=== PATIENT | male | born 1960 | race Caucasian/White ===

== ENCOUNTER 2020-07-19 12:14 | Outpatient (NON) | payer MEDICARE, SELFPAY ==
[2020-07-19 22:30] LABS: SARS-CoV-2 RNA PCR Negative
== END 2020-07-19 12:15 ==
PROVIDERS: Visit Provider Internal Medicine
DX: Z20.828 Contact with and (suspected) exposure to other viral communicable diseases (principal); R05 Cough; R09.89 Other specified symptoms and signs involving the circulatory and respiratory systems
CPT/HCPCS: 87635; C9803; U0003

== ENCOUNTER 2020-07-22 13:25 | Outpatient (CLI) | payer MEDICARE, SELFPAY ==
--- NOTE | ~2020-07-22 | US_ITS ---
US venous doppler LE RT DATE: 07/22/2020 14:21 INDICATION: Right calf redness and swelling. Fever. TECHNIQUE: Real-time imaging, color flow imaging and Doppler analysis COMPARISON: None FINDINGS: The right greater saphenous vein is patent. There is spontaneous and phasic flow and normal augmentation and color flow signal and normal compression of the deep veins of the right lower extre mity. Up to 12 x 15 x 32 mm right groin lymph nodes are noted. IMPRESSION: No evidence of deep venous thrombosis of right lower extremity Nonspecific prominent right inguinal lymph nodes Reviewed, dictated and finalized at [facility]. Reviewed, dictated and finalized at location [facility].
[2020-07-22 14:59] LABS: INR 2.6; Prothrombin Time 27.5 Seconds (11.1-14.7)
== END 2020-07-22 13:26 | disposition home or self-care (01) ==
PROVIDERS: PCP Registered Nurse; Visit Provider Registered Nurse
DX: R22.41 Localized swelling, mass and lump, right lower limb (principal); M79.604 Pain in right leg; Z86.718 Personal history of other venous thrombosis and embolism
CPT/HCPCS: 36415; 85610; 93971

== ENCOUNTER 2023-07-09 04:51 | Inpatient (IN) | payer MEDICARE, SELFPAY ==
[2023-07-09] VITALS (14 sets, daily range): BP systolic 82–156; BP diastolic 54–97; PULSE 84–125; RESP 16–30; TEMP 35–36.3; O2SAT 93–100; BMI 27.5
--- NOTE | ~2023-07-09 | XR_ITS ---
Portable chest x-ray Comparison: None Clinical History: Chest pain, shortness of breath Findings: There is extensive hazy and interstitial pulmonary disease, most compatible with moderate pulmonary edema. No definite pleural effusion. Cardiomediastinal silhouette is stable. Bones and sof t tissues are unremarkable. Impression: Hazy and interstitial pulmonary disease, suggestive of moderate pulmonary edema. Infection or chronic interstitial disease are felt to be less likely. Correlate clinically. Reviewed, dictated and finalized at location . Impression: Hazy and interstitial pulmonary disease, suggestive of moderate pulmonary edema . Infection or chronic interstitial disease are felt to be less likely. Correla te clinically.
--- NOTE | 2023-07-09 05:08 | ECG_ITS ---
Measurements Intervals [place] Rate: 119 P: AL: 0 QRS: 1 QRSD: 118 T: 152 QT: 287 QTc: 405 Interpretive Statements IS A SINUS TACHYCARDIA WITH FIRST-DEGREE AV BLOCK PREVIOUS ANTERIOR SEPTAL SC ST SEGMENT ABNORMALITY CONSISTENT WITH LATERAL ISCHEMIA ABNORMAL ECG NO PREVIOUS ECG AVAILABLE FOR COMPARISON Electronically Signed On 07-09-2023 7:43:34 CDT by Thomas High M.D.
[2023-07-09] MEDS: NITROGLYCERIN OINTMENT 1 INCH DOSE TRANSDERM (05:13)
[2023-07-09] MEDS: MORPHINE SULFATE (*CRX) 4 MG/ML INJ IV PUSH (05:13)
[2023-07-09] MEDS: ONDANSETRON INJ 4 MG/2 ML VIAL IV PUSH (05:14)
--- NOTE | 2023-07-09 05:22 | ECG_ITS ---
Measurements Intervals [place] Rate: 110 P: 92 IA: 212 QRS: 7 QRSD: 110 T: 146 QT: 307 QTc: 417 Interpretive Statements SINUS TACHYCARDIA WITH FIRST DEGREE AV BLOCK WITH FREQUENT VENTRICULAR PREMATURE COMPLEXES ANTEROSEPTAL MYOCARDIAL INFARCTION , OF INDETERMINATE AGE [40+ ms Q WAVE IN V1-V4] MARKED ST DEPRESSION, CONSIDER SUBENDOCARDIAL INJURY [0.2+ mV ST DEPRESSION] ABNORMAL ECG COMPARED TO ECG 07/09/2023 05:22:50 FIRST DEGREE AV BLOCK NOW PRESENT MYOCARDIAL INFARCT FINDING NOW PRESENT Electronically Signed On 07-09-2023 13:59:12 CDT by Frederick Valera M.D.
[2023-07-09 05:26] LABS: Basophils Absolute Auto 0.1 K/mm3 (0.0-0.1); Basophils Percent Auto 0.5 % (0.2-1.2); Eosinophils Absolute Auto 0.3 K/mm3 (0-0.3); Eosinophils Percent Auto 1.5 % (0-4.4); Hematocrit 31.4 % (42.0-52.0); Hemoglobin 10.5 g/dL (14.0-18.0); Immature Granulocyte Absolute 0.22 K/mm3 (0.00-0.031); Immature Granulocyte Percent A 1.1 % (0-0.5); Lymphocytes Absolute Auto 3.91 K/mm3 (0.9-3.2); Lymphocytes Percent Auto 18.9 % (18.3-44.2); Mean Corpuscular HGB Conc 33.4 g/dl (32-36); Mean Corpuscular Hemoglobin 31.7 pg (26-34); Mean Corpuscular Volume 94.9 fl (80-100); Mean Platelet Volume 11.1 fl (7.4-10.4); Monocytes Absolute Auto 1.6 K/mm3 (0.1-0.6); Monocytes Percent Auto 7.5 % (2.6-8.5); Neutrophils Absolute Auto 14.6 K/mm3 (1.3-6.7); Neutrophils Percent Auto 70.5 % (45.5-73.1); Platelet Count Result 321 k/mm3 (150-375); Red Blood Count 3.31 M/mm3 (4.6-6.20); White Blood Count 20.7 K/mm3 (4.5-10.0)
[2023-07-09 05:35] LABS: INR 1.8; Prothrombin Time 22.3 Seconds (11.1-14.7)
[2023-07-09 05:36] LABS: Partial Thromboplastin Time 43.1 SECONDS (22.3-36.8)
[2023-07-09 05:39] LABS: Alanine Aminotransferase 28 U/L (6-50); Albumin Level 3.9 g/dL (3.5-5.1); Alkaline Phosphatase 75 U/L (38-126); Anion Gap 12 mmol/L (8-16); Aspartate Amino Transferase 95 U/L (17-59); Bilirubin,Total 0.4 mg/dL (0.2-1.3); Blood Urea Nitrogen 12 mg/dL (9-20); Calcium 8.3 mg/dL (8.4-10.2); Carbon Dioxide 19 mmol/L (22-30); Chloride 94 mmol/L (98-107); Estimated CRCL calculation 48 ml/min; Estimated Glomerular Filt Rate 44; Glucose 318 mg/dL (65-110); Lipase 65 U/L (23-300); Potassium 3.8 mmol/L (3.4-5.0); Sodium 125 mmol/L (137-145)
[2023-07-09 05:52] LABS: Anisocytosis 2+ (NORMAL); Hypochromasia 2+ (NORMAL); Schistocytes None Seen (NORMAL)
[2023-07-09 05:56] LABS: NT Pro B Type Natriuretic Pept 9100 pg/mL (19.9-100)
--- NOTE | 2023-07-09 06:00 | ECG_ITS ---
Measurements Intervals [place] Rate: 129 P: VA: 0 QRS: 9 QRSD: 110 T: 144 QT: 264 QTc: 387 Interpretive Statements ATRIAL FLUTTER/TACHYCARDIA WITH RAPID VENTRICULAR RESPONSE POSSIBLE ANTERIOR MYOCARDIAL INFARCTION , PROBABLY OLD [30 ms Q WAVE IN V3/V4, OR R < 0.2 mV IN V4] MARKED ST DEPRESSION, CONSIDER SUBENDOCARDIAL INJURY [0.2+ mV ST DEPRESSION] ABNORMAL ECG NO PREVIOUS ECG AVAILABLE FOR COMPARISON Electronically Signed On 07-09-2023 13:58:54 CDT by Frederick Valera M.D.
--- NOTE | 2023-07-09 06:16 | ED.GENADULT ---
HPI - General Adult General Chief complaint: Chest Pain Stated complaint: CHEST PAIN Time Seen by Provider: 07/09/23 05:05 History of Present Illness HPI narrative: Patient 62-year-old gentleman who presents the emergency department with chief complaint of chest pain and shortness of breath. Patient reports that around 230 this morning started to have discomfort in his chest patient also became extremely short of breath and reports that he felt as though his lungs are filling up with fluid. Patient reports feels like tightness and reports that he got diaphoretic patient does report that he has history of cardiac disease and has had a previous catheterization at [facility] Related Data Allergies Allergy/AdvReac Type Severity Reaction Status Date / Time No Known Allergies Allergy Unverified 05/09/18 10:47 Review of Systems Review of Systems: A 10 system review of systems was completed on the patient and is negative except for what is stated in the HPI. Nursing and ancillary documentation was reviewed. [facility] Family History Family History Other Diabetes mellitus Family history of cardiovascular disease Family history of malignant neoplasm Hypertension Social History Social History Smoking status: Current every day smoker Alcohol intake: current Exam Narrative: GENERAL: Well-appearing, well-nourished, and in moderate pain distress. Diaphoretic HEAD: Normocephalic, atraumatic. EYES: PERRLA and EOMI. ENT: Nares clear, no rhinorrhea or epistaxis. Mucous membranes moist. NECK: Supple. CHEST: Expiratory wheezes present and crackles present. Patient in moderate respiratory distress HEART: Regular rate and rhythm. No murmur heard. Normal peripheral pulses. ABDOMEN: Soft, nontender, nondistended, normal active bowel sounds. EXTREMITIES: Normal range of motion. No edema. SKIN: Warm, dry, no rash. NEURO: No focal deficits. Alert and oriented x3. PSYCH: Normal mood and affect. Course Vital Signs Vital signs: Vital Signs Temperature 35 C L 07/09/23 04:53 Pulse Rate 125 H 07/09/23 04:53 Respiratory Rate 30 H 07/09/23 04:53 Blood Pressure 156/80 H 07/09/23 04:53 Pulse Oximetry 93 07/09/23 04:53 Oxygen Delivery Non-Rebreather Mask 07/09/23 04:53 Oxygen Flow Rate 10 07/09/23 04:53 Temperature 35 C L 07/09/23 04:53 Pulse Rate 116 H 07/09/23 05:45 Respiratory Rate 26 H 07/09/23 05:45 Blood Pressure 119/97 H 07/09/23 05:26 Pulse Oximetry 100 07/09/23 05:45 Oxygen Delivery BiPAP 07/09/23 05:45 Oxygen Flow Rate 10 07/09/23 05:08 Medical Decision Making MDM Narrative Medical decision making narrative: Initial EKG showed sinus tachycardia with ST depression no ST elevation present. There was a lot of motion artifact due to the patient's respiratory status The patient was placed on BiPAP due to respiratory distress Patient received aspirin prehospital by EMS Patient's pain was controlled and the patient's breathing status improved on BiPAP. Repeat EKG showed ST depression but no ST elevation. Patient was started on a heparin drip Vital Signs Vital Signs: Vital Signs Temperature 35 C L 07/09/23 04:53 Pulse Rate 125 H 07/09/23 04:53 Respiratory Rate 30 H 07/09/23 04:53 Blood Pressure 156/80 H 07/09/23 04:53 Pulse Oximetry 93 07/09/23 04:53 Oxygen Delivery Non-Rebreather Mask 07/09/23 04:53 Oxygen Flow Rate 10 07/09/23 04:53 Temperature 35 C L 07/09/23 04:53 Pulse Rate 116 H 07/09/23 05:45 Respiratory Rate 26 H 07/09/23 05:45 Blood Pressure 119/97 H 07/09/23 05:26 Pulse Oximetry 100 07/09/23 05:45 Oxygen Delivery BiPAP 07/09/23 05:45 Oxygen Flow Rate 10 07/09/23 05:08 Lab Data 07/09/23 05:12 07/09/23 05:12 Labs: Lab Results 07/09/23 Range/Unit
[2023-07-09] MEDS: HEPARIN SODIUM 5,000 UNITS/ML VIAL 4000 UNITS IV PUSH (06:53)
[2023-07-09] MEDS: HEPARIN SOD/D5W 100 UNITS/ML 25,000 UNITS/250 ML BAG 10 UNITS IV CONT (06:54)
--- NOTE | 2023-07-09 10:11 | PM.CNCAR ---
Assessment and Plan Assessment and plan (1) Acute non-ST elevation myocardial infarction (NSTEMI): Code(s): I21.4 - Non-ST elevation (NSTEMI) myocardial infarction Status: Acute Plan this is a 62-year-old man with a history of coronary and peripheral vascular disease, previous infarction and previous PCI with care Provided elsewhere. He has a history of ongoing cigarette smoking and a history of congenital hypercoagulable disorders described above. He enters the hospital with acute coronary syndrome. The patient should probably undergo follow-up angiography in this setting. I will try to contact his established computer lab assistant this morning to see if he can be transferred to their hospital since he does have complex coronary disease and a history of in a very unusual hypercoagulable disorder and his web systems developer is not available to participate in his care here at [place]. If I am not able to contact his physician we will consider bringing him to the slab worker here at [place] today. Thomas High MD [facility] History of Present Illness History of Present Illness Consult date/time: 07/09/23 10:11 Reason For Visit: NSTEMI Narrative: this is a 62-year-old man with a history of coronary artery disease. He receives his cardiovascular care elsewhere at the time of this initial consultation I did not have any records that pertain to his previous care. He came to [facility] in the middle of the night with some chest pain that occurred was home. He describes a pressure-like retrosternal pain radiating to the left shoulder in the left arm, he recognize these as typical symptoms of myocardial ischemia and was brought to the emergency room. In the emergency department he was treated with nitrates oxygen and aspirin he was also started on intravenous heparin. His symptoms did improve and he was admitted to the IMU. His troponin level has risen to 18.6 indicating obvious evidence of acute myocardial injury. The patient's electrocardiogram shows sinus rhythm with evidence of previous anteroseptal infarction and some lateral ST segment depression compatible with ischemia. There are no previous ECGs in our records for comparison. According to the records that I have available to me now he has a history of coronary disease dating back to the year 1999 which she underwent percutaneous angioplasty and stenting at [facility] in [place]. He recently has been followed by Dr. Anderson of [facility]. He in 2014 presented with the ischemic symptoms and underwent stenting to his circumflex and then of the obtuse marginal in 2019. He also has a rather unusual hypercoagulable disorder managed by a web systems developer he has hereditary methylenetrahydrofolate reductase mutation . for this he is anticoagulated with warfarin. Current INR is 1.8. He also apparently has a history of peripheral vascular disease and has undergone previous percutaneous revascularization. I have none of the details of that available to me at the time of this dictation. The patient is resting IMU room 211 at the time I saw him. He still has some mild chest pressure he does report that the symptoms are much improved from when he presented here couple of hours ago. Most unfortunately he is an ongoing cigarette smoker. According to records from his previous physician he takes aspirin, atorvastatin, folic acid, furosemide, lisinopril, metformin, metoprolol, pantoprazole and warfarin. Review of Systems Constitutional: Constitutional: Reports no additional constitutional complaints Eyes: Eyes: Reports no additional eye complaints ENT: Reports system reviewed and no additional complaints, except as documented Cardiovascular: Cardiovascular: Reports as per HPI Respiratory: Respiratory: Reports no additional respiratory complaints Gastrointestinal: Gastrointestinal: Reports heartburn Genitourinary: Genitourinary: Reports no additional male cristóbal
--- NOTE | 2023-07-09 10:23 | ADMGEN ---
This patient, Natan Mari, was admitted to IMU Room 211-01. Patient/family oriented to hospital policies and general routines including ID bracelet, bed and alarms, visiting hours, pain management, procedures, bathroom and other care routines, personal items, smoking policy, room service/diet, and visiting hours. Information on how to activate the Rapid Response Team has been discussed. Patient/Family are encouraged to report perceived risks to care and to ask questions if they do not understand what they are told or what they should do.
[2023-07-09] MEDS: ASPIRIN 81 MG CHEWABLE TABLET PO (12:32)
[2023-07-09] MEDS: PANTOPRAZOLE 40 MG TABLET PO (12:32)
[2023-07-09 12:45] LABS: Partial Thromboplastin Time 90.2 SECONDS (22.3-36.8)
--- NOTE | 2023-07-09 16:19 | PC.NURSE ---
1549 pt left with [facility]. 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 Nitro paste to patient's right chest. Pt rates chest pain at a 2.
--- NOTE | 2023-08-06 11:50 | PM.TDS ---
Transfer Discharge Sum: Prov Provider Date of admission: 07/09/23 06:13 Primary care physician: Alma Pham, SALES AGENT [employer] REPORT [employer]ICE Admitting clinician: Bailey Li MD Attending physician on admission: Bailey Li Consults: 07/09/23 06:14 Consult to Physician Routine Comment: Consulting Provider: Frederick Valera Reason for consultation: NSTEMI Has provider been notified: Yes Attending physician on discharge: Bailey Li V. Discharging clinician: Thomas High Anticipated date of transfer: 07/09/23 Receiving physician/facility: [facility] DS: Admitting Diagnosis Discharge Date 07/09/[address]-elevation DC DS: Discharge Diagnosis Discharge Diagnosis Plan transfer to referring hospital for higher risk PCI and revascularization Transfer Discharge Sum: Med Medications Active and Home Medications: Home Medications allopurinol 300 mg tablet 300 mg PO DAILY 07/09/23 [History Confirmed 07/09/23] atorvastatin 40 mg tablet 40 mg PO HS 07/09/23 [History Confirmed 07/09/23] folic acid 1 mg tablet 1 mg PO DAILY 07/09/23 [History Confirmed 07/09/23] furosemide 20 mg tablet 20 mg PO DAILY 07/09/23 [History Confirmed 07/09/23] gabapentin 600 mg tablet 600 mg PO DAILY 07/09/23 [History Confirmed 07/09/23] lisinopril 40 mg tablet 40 mg PO DAILY 07/09/23 [History Confirmed 07/09/23] metoprolol succinate 100 mg tablet,extended release 24 hr 100 mg PO HS 07/09/23 [History Confirmed 07/09/23] pantoprazole 40 mg tablet,delayed release 40 mg PO DAILY 07/09/23 [History Confirmed 07/09/23] potassium chloride 10 mEq tablet,extended release 10 meq PO DAILY 07/09/23 [History Confirmed 07/09/23] warfarin 5 mg tablet 5 mg PO DAILY 07/09/23 [History Confirmed 07/09/23] Transfer Discharge Sum: Hosp Hospital Course Hospital course: Natan Mari is a 62 year old male with a long history of coronary artery disease who receives his care by a cardiology group elsewhere and came to this hospital with ischemic chest pain the evening prior to this consultation. He was treated with aspirin beta-blockers nitrates and anticoagulation and rendered pain-free. His troponin levels did rise significantly indicating evidence of non ST elevation DC. His ECG showed some lateral ST segment depression. The patient has a history of coronary disease with previous percutaneous and surgical revascularization. He also has a sore unusual hypercoagulable disorder as well. He receives none of his medical care or cardiology care here at [facility]. His personal care aid is a member of the [facility] group and he receives his care through their services. I have recommended to the patient transferring him to their facility for further evaluation and revascularization in terms of the higher risk of more complex situation that his case presents. He was transferred to [facility] for this reason the day I saw him in consultation. The patient was admitted to the hospitalist service according to the records there is no evidence the aware of they had seen the patient prior to his departure from the hospital Time Spent with Patient Time attestation: Total time spent providing and/or coordinating transfer services: Total time spent: Greater than 30 minutes Exam Const: Other: well-developed well-nourished somewhat chronically ill-appearing gentleman no distress HENMT: Head: normal to inspection Face and sinus: normal facial exam Eyes: Sclera: sclerae normal Pupils: Equal, round and reactive pupils present Neck: Neck: normal visual inspection and no JVD Chest: Chest palpation & inspection: normal inspection of the chest Other: breath sounds are clear bilaterally no wheezing rales or rhonchi Cardio: Jugular venous distension: no JVD Other: first and second heart sounds are normal no gallop very soft systolic murmur does not radiate from the left sternal border
== END 2023-07-09 15:49 | disposition short-term general hospital (02) | DRG 281 ==
LOC: ANHED 06:19 → ANHIMU 07:41
PROVIDERS: Specialist; Admitting Provider Internal Medicine; Emergency Provider Emergency Medicine; PCP Registered Nurse; Visit Provider Internal Medicine
DX: I21.4 Non-ST elevation (NSTEMI) myocardial infarction (principal); D68.69 Other thrombophilia; I25.10 Atherosclerotic heart disease of native coronary artery without angina pectoris; I73.9 Peripheral vascular disease, unspecified; F17.210 Nicotine dependence, cigarettes, uncomplicated; Z95.5 Presence of coronary angioplasty implant and graft
CPT/HCPCS: 36415; 71045; 80053; 83690; 83880; 84484; 85025; 85610; 85730; 93005; 94002; 96374; 96375; 99285; A9270; J1644; J2270; J2405; J7040

== ENCOUNTER 2023-12-20 09:45 | Outpatient (RCR) | payer MEDICARE, SELFPAY | END 2023-12-20 14:33 | disposition home or self-care (01) | LOC: ANHCPREHAB 09:45 | PROVIDERS: PCP Registered Nurse; Visit Provider Internal Medicine Cardiovascular Disease | DX: Z95.1 Presence of aortocoronary bypass graft (principal) | CPT/HCPCS: 93798 ==

== ENCOUNTER 2024-12-19 01:04 | Day surgery (SDC) | payer MEDICARE, SELFPAY ==
[2024-12-12 15:20] VITALS: BMI 30.4
--- NOTE | 2024-12-12 15:35 | SUR.PREOP ---
Patient verbalizes understanding that the last dose of warfarin is to be taken on 12/13/2024 and the Endoscopist will instruct them when to restart after the procedure.
--- OUTSIDE RECORDS SUMMARY | 2024-12-19 01:08 | XMS_ITS | Encounter Summary ---
Author Organization [facility] Care Team Providers Care Assembler Unit Name Role Phone Godfrey Abrams MD Primary Care Provider [phone] Encounter Details Date Type Department Care Team (Latest Contact Info) Description 01/18/2018 Orders Only [facility]INCON[facility] ProviderMaria De Jesus MD [address] [place] [id number] Social History Tobacco Use Types Packs/Day Years Used Date Smoking Tobacco: Never Assessed Sex and Gender Information Value Date Recorded Sex Assigned at Not on file Legal Sex Male 10:16 AM ARCHIVIST POLITICAL HISTORY Gender Identity Not on file Sexual Orientation Not on file documented as of this encounter Plan of Treatment Not on file documented as of this encounter Procedures Procedure Name Priority Date/Time Associated Diagnosis Comments SCAN - LABS 01/25/2018 12:00 AM CDT documented in this encounter Results * SCAN - LABS (01/25/2018 12:00 AM CDT) Narrative 01/25/2018 12:00 AM CDT Ordered by an unspecified provider. Historical Provider Final Res ult documented in this encounter Visit Diagnoses Not on filedocumented in this encounter Care Teams Assembler Unit Relationship Specialty Start Date End Date Godfrey Abrams MD PCP - General Internal Medicine 06/15/18 documented as of this encounter
--- OUTSIDE RECORDS SUMMARY | 2024-12-19 01:08 | XMS_ITS | Encounter Summary ---
Author Organization [facility] Address Counts include 234 beds at the [facility] [place] [address] Care Team Providers Care Dark Room Attendant Name Role Phone Godfrey Abrams MD Primary Care Provider [phone] Encounter Details Date Type Department Care Team (Late st Contact Info) Description 12/06/2024 Lieferheld Message Enc [facility] [address] [place], [facility] Provider warfarin/lovenox instructions Social History Tobacco Use Types Packs/Day Years Used Date Smoking Tobacco: Former Cigarettes Smokeless Tobacco: Former Comments:The provider will p rovide you with information on quiting smoking Alcohol Use Standard Drinks/Week Comments Yes 0 (1 standard drink = 0.6 oz pur e alcohol) 1-2 drink a week OASIS D0700: Social Isolation Answer Da te Recorded Frequency of experiencing loneliness or isolatio n Rarely 08/04/2023 OASIS A1250: Transportation Answer Date Recorded Lack of Transportation (Medical) No 08/04/2023 Lack of Transportation (Non-Medical) No 08/04/2023 Patient Unable or Declines to Respond No 08/04/2023 OASIS B1300: Health Literacy Answer Eros e Recorded Frequency of needing help to read materials from doctor or pharmacy Sometimes 08/04/2023 Humiliation, Afraid, Rape, and Kick questionnair e Answer Date Recorded Within the last year, have y ou been afraid of your partner or ex-partner? No 07/11/2023 Within the last year, have y ou been humiliated or emotionally abused in other ways by your partner or ex-partner? No Within the last year, have y ou been kicked, hit, slapped, or otherwise physically hurt by your partner or ex-partner? No 07/11/2023 Within the last year, have y ou been raped or forced to have any kind of sexual activity by your partner or ex-partner? No 07/11/2023 Social Connection and Isolat ion Panel [NHANES] Answer Date Recorded In a typical week, how many times do you talk on the phone with family, friends, or neighbors? More than three times a week 02/04/2023 How often do you get togethe r with friends or relatives? More than three times a week 02/04/2023 How often do you attend chur or zoroastrianism services? Never 02/04/2023 Do you belong to any clubs o r organizations such as muslim groups, unions, fraternal or athletic groups, or school groups? No 02/04/2023 How often do you attend meet ings of the clubs or organizations you belong to? Never 02/04/2023 Are you , , di vorced, , never , or living with a partner? 02/04/2023 AUDIT-C Answer Date Recorded Q1: How often do you have a drink containing alcohol? 4 or more times a week 02/04/2023 Q2: How many drinks containi ng alcohol do you have on a typical day when you are drinking? 3 or 4 Q3: How often do you have si x or more drinks on one occasion? Monthly 02/04/2023 Overall Financial Resource Strain (CARDIA) Answe r Date Recorded How hard is it for you to pa y for the very basics like food, housing, medical care, and heating? Not hard at all 07/11/2023 PHQ-2 Answer Date Recorded Patient Health Questionnaire-2 Score 0 11/23/2023 [facility] - Occupational Stress Questionnaire Answer Date Recorded Do you feel stress - tense, restless, nervous, or anxious, or unable to sleep at night because your mind is troubled all the time - these days? Not at all 02/04/2023 Exercise Vital Sign Answer Date Recorde d On average, how many days pe r week do you engage in moderate to strenuous exercise (like a brisk walk)? 0 days 02/04/2023 On average, how many minutes do you engage in exercise at this level? 0 min 02/04/2023 Hunger Vital Sign Answer Date Recorded Within the past 12 months, y ou worried that your food would run out before you got the money to buy more. Never true 07/11/20 23 Within the past 12 months, t he food you bought just didn't last and you didn't have money to get more. Never true 07/11/2023 PRAPARE - Transportation Answer Date Re corded In the past 12 months, has l ack of transportation kept you from medical appointments or from getting medications? No 06/27 In the past 12 months, has l ack of transportation kept you from meetings, work, or from getting things needed for daily living? No 07/11/2023 Housing Stability Vital Sign Answer Eros e Recorded In the last 12 months, was t here a time when you were not able to pay the mortgage or rent on time? No 07/11/2023 In the last 12 months, how many places have you lived? 1 07/11/2023 In the last 12 months, was t here a time when you did not have a steady place to sleep or slept in a usp (including now)? No 07/11/2023 Sex and Gender Information Value Date Recorded Sex Assigned at Male 12/13/2018 8:47 AM CDT Legal Sex Male 7:24 PM CDT Gender Identity Male 12/13/2018 8:47 AM CDT Sexual Orientation Straight 12/13/2018 8: 47 AM CDT documented as of this encounter Functional Status * Are you deaf or do you have serious difficulty hearing Answer Date of Assessment Author Status No 07/11/2023 11:14 PM CDT Colten Sepulveda RN Active * Are you blind or do you have serious difficulty seeing, even when wearing glasses? Answer Date of Assessment Author Status No 07/11/2023 11:14 PM CDT Colten Sepulveda, ALEX Active * Do you have serious difficulty walking or climbing stairs? Answer Date of Assessment Author Status No 07/11/2023 11:14 PM CDT Colten Sepulveda, ALEX Active * Do you have difficulty dressing or bathing? Answer Date of Assessment Author Status No 07/11/2023 11:14 PM CDT Colten Sepulveda RN Active * Because of a physical, mental, or emotional condition, do you have difficulty doing errands alone such as visiting a doctor's office or shopping? Answer Date of Assessment Author Status No 07/11/2023 11:14 PM CDT Colten Sepulveda RN Active documented as of this encounter Mental Status * Because of a physical, mental, or emotional condition, do you have serious difficulty concentrating, remembering, or making decisions? Answer Entry Date Author Status No 07/11/2023 11:14 PM CDT Colten Sepulveda RN Active documented in this encounter Plan of Treatment Upcoming Encounters Date Type Department Care Team (Late st Contact Info) Description 03/16/2025 9:00 AM CDT Office Visit [facility] [address] [id number] Jessee Anderson MD 3 [facility] [address] [place] [phone] documented as of this encounter Goals Goal Patient Goal Type Associated Problems Recent Progress Patient-Stated? Author Family - family caregiver with be involved in care transitions and discharge planning Lifestyle No Tea Sepulveda RN documented as of this encounter Visit Diagnoses Not on filedocumented in this encounter Additional Health Concerns Assessment Noted Time PHQ-9 Depression Total Score: 0 03/03/20 21 2:55 PM CDT documented as of this encounter Care Teams Dark Room Attendant Relationship Specialty Start Date End Date Godfrey Abrams MD [address] [place] [address] PCP - General 09/18/14 documented as of this encounter
--- OUTSIDE RECORDS SUMMARY | 2024-12-19 01:08 | XMS_ITS | Clinical Summary ---
Author Organization [facility] Address [address] [place] [address] Phone Care Team Providers Care [employer] Name Role Phone Godfrey Abrams MD Primary Care Provider [phone] Allergies No known active allergies Medications allopurinol (ZYLOPRIM) 300 mg tablet oNCE A DAY 7 Active aspirin 81 mg chewable tablet 1 tablet daily 7 Active folic acid (FOLVITE) 1 mg tablet oNCE DAILY 7 Active furosemide (LASIX) 20 mg tablet Daily [address] (PROTONIX) 40 mg EC tablet oNCE A DAY 7 Active warfarin (COUMADIN) 6 mg tablet Take by mouth daily 7 Active gabapentin (NEURONTIN) 600 mg tablet Take 1 tablet (600 mg total) by mouth daily 8 Active lisinopril (PRINIVIL,ZESTR IL) 5 mg tablet Take 4 tablets (20 mg total) by mouth daily 2 TABLETS DAILY 8 Active metoprolol XL (TOPROL-XL) 100 mg 24 hr tablet 1 tablet (100 mg total) daily Active cholecalciferol (VITAMIN D-3) 5,000 unit capsule 5,000 mg daily Activ e polycarbophil (FIBERCON) 625 mg tablet 1 tablet (625 mg total) 3 (three) times a day Active atorvastatin (LIPITOR) 40 mg tablet 1 tablet (40 mg total) daily Active vitamin B complex capsule Take 1 capsule by mouth daily Active POTASSIUM CHLORIDE ER 10 mEq CR tablet TAKE 1 TABLET ONCE A DAY ORALLY 90 tablet/capsu le 1 0 Active Additional Information Patient not taking.Reported on 08/09/2024 digestive enzymes capsule Take 1 tablet by mouth daily Active blood glucose diagnostic strip FreeStyle Test In Vitro StripTEST BLOOD SUGAR TWICE DAILY for dx: Type 2 Diabetes [id number] Godfrey AbramsMusa 3 Active lancets 30 gauge misc by other route 3 Active metFORMIN (GLUCOPHAGE) 500 mg tablet 1 tablet (500 mg total) 2 (two) times a day with meals 1 Active Entresto 24-26 mg tablet Take 1 tablet by mouth 2 (two) times a day 3 Active amiodarone (PACERONE) 200 mg tablet Take 1 tablet (200 mg total) by mouth daily 3 Active senna-docusate (PERICOLACE) 8.6-50 mg Take 1 tablet by mouth 2 (two) times a day 3 Active temazepam (RESTORIL) 15 mg capsule Take 1 capsule (15 mg total) by mouth nightly as needed 3 Active spironolactone (ALDACTONE) 25 mg tablet 3 Active Active Problems Problem Noted Date Diagnosed Date Esophageal thickening 08/09/2024 Multiple pulmonary nodules 08/09/2024 Obstructive sleep apnea 07/08/2022 Periodic limb movement 07/08/2022 Nocturnal hypoxemia 07/08/2022 Psychophysiological insomnia 07/08/2022 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 CAD (coronary artery disease) 03/23/2016 Overview (02/02/2019): Status post left circumflex artery stent in 1998 and obtuse marginal promus Premier stent on 02/22/2015 with 50% left anterior descending coronary artery stenosis, stable. Atrial flutter 03/23/2016 Overview (02/02/2019): Persistent with rapid ventricular response with successful conversion to sinus rhythm on 11/18/2014 on warfarin anticoagulation. Remains in sinus rhythm, INRs Managed by Dr. Abrams Dyslipidemia 03/23/2016 Overview (02/02/2019): On atorvastatin with lipids at goal Hypertension 03/23/2016 Overview (02/02/2019): Isolated elevated reading, normal blood pressure reading at Dr. Patiño 6 weeks ago and normal blood pressure reading at Dr. Abrams's 4 weeks ago Cigarette nicotine dependence in remission 03/23 Overview (02/02/2019): 5 cigarettes per day. Failed Chantix (bad dreams). Nicotine patches were not effective and caused headache. Encounters Date Type Department Care Team Description 11/30/2024 Telephone [facility] [facility] [address] [place] [address] Saida Sharma CMA from Last 3 Months Immunizations Immunization Administration Dates Next Due Influenza, Quadrivalent, Spl it, Preservative Free, Intramuscular 07/26/2023 Moderna SARS-CoV-2 Monovalent Vaccination (12+ Y RS) 03/08/2021,02/08/2021 Tdap 02/04/2023 Surgical History Surgery Date Site/Laterality Comments CORONARY ARTERY BYPASS GRAFT 07/12/2023 Medical History Medical History Date Comments Diabetes mellitus (HCC) Family History Medical History Relation Name Comments No Known Problems Brother No Known Problems Father No Known Problems Mother No Known Problems Sister Relation Name Status Comments Brother Alive Father Mother Sister Alive Social History Tobacco Use Types Packs/Day Years Used Date Smoking Tobacco: Former Cigarettes 1 40 1 - 07/09/2023 Smokeless Tobacco: Never Tobacco Cessation:Counseling Given: Not Answered Alcohol Use Standard Drinks/Week Comments Yes 0 (1 standard drink = 0.6 oz pur e alcohol) AUDIT-C Answer Date Recorded Q1: How often do you have a drink containing alcohol? 4 or more times a week 08/04/2024 Q2: How many drinks containi ng alcohol do you have on a typical day when you are drinking? 1 or 2 Q3: How often do you have si x or more drinks on one occasion? Less than monthly 08/04/2024 Sex and Gender Information Value Date Recorded Sex Assigned at Not on file Legal Sex Male 10:16 AM PLUNKET NURSE Gender Identity Not on file Sexual Orientation Not on file Obstetrics History Last Filed Vital Signs Vital Sign Reading Time Taken Comments Blood Pressure 118/64 08/09/2024 8:55 AM PLUNKET NURSE Pulse 73 08/09/2024 8:55 AM PLUNKET NURSE Temperature 36.4 C (97.6 F) 08/09/2024 8:55 AM PLUNKET NURSE Respiratory Rate 18 08/09/2024 8:55 AM PLUNKET NURSE Oxygen Saturation 98% 08/09/2024 8:55 AM PLUNKET NURSE Inhaled Oxygen Concentration - - Weight 110.2 kg (243 lb) 08/09/2024 8:55 AM PLUNKET NURSE Height 185.4 cm (6' 1 ) 08/09/2024 8:55 AM PLUNKET NURSE Body Mass Index 32.06 08/09/2024 8:55 AM PLUNKET NURSE Plan of Treatment Health Maintenance Due Date Last Done Comments Colon Cancer Screening-Colonoscopy 1958 Depression Screening 1958 Fall Risk Assessment 1960 Hepatitis C Screening 1960 Prostate Cancer Screening-PSA 1958 Hepatitis B Screening 1976 Pneumococcal vaccine 65+ (1 of 1 - PCV) 2008 Zoster Vaccine (1 of 2) 2008 Abdominal Aortic Aneurysm (AAA) Screen 2023 Well Visit 65+ 2023 Covid-19 Vaccine ( season) 05/28/202408/2021, 02/08/2021 Influenza Vaccine (#1) 2024 07/26/2023 Lung Cancer Screening 01/13/2025 07/17/2024 DTaP/Tdap/Td Vaccine (2 - Td or Tdap) 02/04/203307/2023 Procedures Procedure Name Priority Date/Time Associated Diagnosis Comments CT LUNG CANCER SCREENING Schedule Routine, Read Routine (OP Routine) 07/17/2024 12:14 PM CDT Personal history of nicotine dependence from Last 3 Months or Most Recently Relevant to Health Maintenance Results * CT Lung Cancer Screening (07/17/2024 12:14 PM CDT) Anatomical Region Laterality Modality Chest N/A Computed Tomogra phy 07/20/2024 5:47 AM CDT Narrative 07/20/2024 5:57 AM CDT EXAM DESCRIPTION: CT LUNG CANCER SCREENING REASON FOR STUDY: Screening CT of the chest in a former smoker with a 45 pack year smoking history. Additional history: Smoking cessation 10 days ago. TECHNIQUE: Low dose CT scan of the chest was performed without intravenous contrast using helical scanning technique. The exam extends from the lung apices through the lung bases. Automatic exposure control was used as a dose optimization technique. NOTE: This study was performed for the specific purposes of lung cancer screening and is not an alternative to diagnostic chest CT. RADIATION DOSE: CT dose index volume (CTDIvol) = 2.86 mGy COMPARISON: None FINDINGS: SMOKING RELATED LUNG DISEASE: Moderate emphysema, both centrilobular and paraseptal. There is mild pleuroparenchymal scarring in the apices. There is central bronchial wall thickening, as can be seen with bronchitis. LUNG NODULES: Ground-glass nodule anterior right upper lobe, image 138 measuring 1.4 cm. 6 mm nodule posterior right upper lobe, image 183. Linear 4 mm nodule posterior right upper lobe image 184. 2 mm nodule anterolateral left upper lobe image 97. 2 mm nodule left upper lobe image 119. 7 mm nodule lateral left lower lobe image 282. 3 mm juxta fissural nodule anterior left lower lobe image 306. CORONARY ARTERY CALCIFICATION: Present. Changes of CABG OTHER: No pneumonic consolidation within either lung. No effusion or pneumothorax. The central airways are patent. There are areas of subsegmental scarring and atelectasis. The thyroid gland is unremarkable. There is no mediastinal or hilar lymphadenopathy. Mild thickening of the esophagus which is somewhat patulous in appearance. Consider reflux or esophagitis. The heart is normal in size without pericardial effusion. Thoracic aorta is atherosclerotic, without aneurysm. Main pulmonary trunk normal in caliber. No axillary lymphadenopathy. Gynecomastia is noted. Visualized upper abdomen reveals atherosclerotic changes of the aorta. There is cervical and thoracic spondylosis. No acute abnormality IMPRESSION: Moderate emphysema. Central bronchial wall thickening as can be seen with bronchitis. Bilateral pulmonary nodules, the largest a 7 mm nodule in the left lower lobe. Six-month follow-up LD CT recommended. Coronary artery calcifications and changes of CABG. Mild thickening of the esophagus as could be seen with reflux or esophagitis. Correlate clinically. Upper GI or endoscopy can be utilized for further evaluation. Additional findings as above. Lung-RADS category 3S: Probably benign. Finding other than a pulmonary nodule which is potentially clinically significant. Recommendation: Low dose CT of chest in 6 months. THIS IS AN ELECTRONICALLY VERIFIED FINAL REPORT 07/20/2024 5:57 AM - Electronically signed by Tiny Dejesus M.D. TW: TAVARES Report ID: [id number] Reading Location: [id number] Procedure Note Tiny Dejesus MD - 07/20/2024 EXAM DESCRIPTION: CT LUNG CANCER SCREENING REASON FOR STUDY: Screening CT of the chest in a former smoker with a45 pack year smoking history. Additional history: Smoking cessation 10 daysago. TECHNIQUE: Low dose CT scan of the chest was performed without intravenous contrast using helical scanning technique. The exam extends from the lung apices through the lung bases. Automatic exposure control was used as adose optimization technique. NOTE: This study was performed for the specific purposes of lung cancer screening and is not an alternative to diagnostic chest CT. RADIATION DOSE: CT dose index volume (CTDIvol) = 2.86 mGy COMPARISON: None FINDINGS: SMOKING RELATED LUNG DISEASE: Moderate emphysema, both centrilobular and paraseptal. There is mild pleuroparenchymal scarring inthe apices. There is central bronchial wall thickening, as can be seen with bronchitis. LUNG NODULES: Ground-glass nodule anterior right upper lobe, image 138 measuring 1.4cm. 6 mm nodule posterior right upper lobe, image 183. Linear 4 mm nodule posterior right upper lobe image 184. 2 mm nodule anterolateral leftupper lobe image 97. 2 mm nodule left upper lobe image 119. 7 mm nodule lateral left lower lobe image 282. 3 mm juxta fissural nodule anterior left lower lobe image 306. CORONARY ARTERY CALCIFICATION: Present. Changes of CABG OTHER: No pneumonic consolidation within either lung. No effusion or pneumothorax. The central airways are patent. There are areas of subsegmental scarring and atelectasis. The thyroid gland is unremarkable. There is no mediastinal or hilar lymphadenopathy. Mild thickening of the esophagus which is somewhat patulous in appearance. Consider reflux or esophagitis. The heart is normal in size without pericardial effusion. Thoracic aorta is atherosclerotic, without aneurysm. Main pulmonary trunk normal in caliber. No axillary lymphadenopathy. Gynecomastia is noted. Visualized upper abdomen reveals atherosclerotic changes of the aorta.There is cervical and thoracic spondylosis. No acute abnormality IMPRESSION: Moderate emphysema. Central bronchial wall thickening as can be seen with bronchitis. Bilateral pulmonary nodules, the largest a 7 mm nodule in the left lower lobe. Six-month follow-up LD CT recommended. Coronary artery calcifications and changes of CABG. Mild thickening of the esophagus as could be seen with reflux oresophagitis. Correlate clinically. Upper GI or endoscopy can be utilized for further evaluation. Additional findings as above. Lung-RADS category 3S: Probably benign. Finding other than a pulmonarynodule which is potentially clinically significant. Recommendation: Low dose CT of chest in 6 months. THIS IS AN ELECTRONICALLY VERIFIED FINAL REPORT 07/20/2024 5:57 AM - Electronically signed by Tiny Dejesus M.D. TW: TAVARES Report ID: [id number] Reading Location: [place] [address] Jose Francisco Mercer MD IMG CT PROCEDURES Final Res ult from Last 3 Months or Most Recently Relevant to Health Maintenance Insurance [facility] MEDICARE ADVANTAGE [facility] MEDICARE Address: [address] [place] [phone] [facility] MEDICARE AD[facility]ANTAGE [facility] MEDICARE Address: [address] [place] [phone] [facility] MEDICARE Address: [address] [phone] Advance Directives For more information, please contact: [phone] Documents on File Type Date Recorded Patient Atmospheric Sciences Professor Expl anation ADVANCE DIRECTIVE 11/27/2014 12:00 AM POWER OF OCC THERAPIST FINANCIAL/MEDICAL Care Teams [employer] Relationship Specialty Start Date End Date Godfrey Abrams MD PCP - General Internal Medicine 06/15/18
--- OUTSIDE RECORDS SUMMARY | 2024-12-19 01:08 | XMS_ITS | Encounter Summary ---
Author Organization [facility] Address [address] [place] [address] Care Team Providers Care Anatomy And Physiology Instructor Name Role Phone Godfrey Abrams MD Primary Care Provider Encounter Details Date Type Department Care Team (Late st Contact Info) Description 01/23/2015 Orders Only [facility] Health Information Management [address] [place] [address] Scanning, Provider Social History Tobacco Use Types Packs/Day Years Used Date Smoking Tobacco: Never Assessed Sex and Gender Information Value Date Recorded Sex Assigned at Not on file Legal Sex Male 10:16 AM PRODUCT TEST SPECIALIST Gender Identity Not on file Sexual Orientation Not on file documented as of this encounter Plan of Treatment Not on file documented as of this encounter Procedures Procedure Name Priority Date/Time Associated Diagnosis Comments CARDIOLOGY DOCUMENT SCAN 01/23/2015 documented in this encounter Results * SCAN - CARDIOLOGY (01/23/2015) Anatomical Region Laterality Modality Other us Provider Scanning CV CARDIAC SERVICES PROCEDURES Final Result documented in this encounter Visit Diagnoses Not on filedocumented in this encounter Care Teams Anatomy And Physiology Instructor Relationship Specialty Start Date End Date Godfrey Abrams MD PCP - General Internal Medicine 06/15/18 documented as of this encounter
--- OUTSIDE RECORDS SUMMARY | 2024-12-19 01:08 | XMS_ITS | Referral Summary ---
Author Organization [facility] Address [address] [place] [address] Phone Care Team Providers Care Photonics Technician Name Role Phone Godfrey Abrams MD Primary Care Provider [phone] Encounters Date Type Department Care Team Description 11/30/2024 Telephone [facility] [address] [facility] [address] [place] [address] Saida Sharma CMA from Last 3 Months Allergies No known active allergies Medications allopurinol [...] TWICE DAILY for dx: Type 2 Diabetes [id number] Godfrey AbramsActive 3 Active lancets 30 gauge misc by [...] patches were not effective and caused headache. 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 Gender Identity Not on file Sexual Orientation Not on file Last Filed Vital Signs Vital Sign Reading Time Taken Comments Blood Pressure 118/64 08/09/2024 8:55 AM SENIOR TECHNOLOGIST Pulse 73 08/09/2024 8:55 AM SENIOR TECHNOLOGIST Temperature 36.4 C (97.6 F) 08/09/2024 8:55 AM SENIOR TECHNOLOGIST Respiratory Rate 18 08/09/2024 8:55 AM SENIOR TECHNOLOGIST Oxygen Saturation 98% 08/09/2024 8:55 AM SENIOR TECHNOLOGIST Inhaled Oxygen Concentration - - Weight 110.2 kg (243 lb) 08/09/2024 8:55 AM SENIOR TECHNOLOGIST Height 185.4 cm (6' 1 ) 08/09/2024 8:55 AM SENIOR TECHNOLOGIST Body Mass Index 32.06 08/09/2024 8:55 AM SENIOR TECHNOLOGIST Plan of Treatment Not on file Procedures Procedure Name Priority Date/Time Associated Diagnosis [...] Tiny Dejesus M.D. TW: TAVARES Report ID: [id number] Reading Location: [id number] Procedure Note Tiny Dejesus MD - 07/20/2024 [...] Tiny Dejesus M.D. TW: TAVARES Report ID: [id number] Reading Location: [place] [address] Jose Francisco Mercer MD IMG CT PROCEDURES Final Res ult from Last 3 Months or Most Recently Relevant to Health Maintenance Insurance [facility] Address: [place] [address] [facility] Address: [place] [phone] Advance Directives For more information, please contact: [phone] Documents on File Type Date Recorded Patient Resource Protection Specialist Expl anation ADVANCE DIRECTIVE 11/27/2014 12:00 AM POWER OF TELEGRAPH SERVICE RATER FINANCIAL/MEDICAL Care Teams Photonics Technician Relationship Specialty Start Date End Date Godfrey Abrams MD PCP - General Internal Medicine 06/15/18
--- OUTSIDE RECORDS SUMMARY | 2024-12-19 01:08 | XMS_ITS | Clinical Summary ---
Author Organization [facility] Address [address] [place] [address] Care Team Providers Care Verifying Machine Operator Name Role Phone Godfrey Abrams MD Primary Care Provider [phone] Allergies No known active allergies Medications cholecalciferol 125 MCG (5000 UT) TabIndications: Vitamin D Deficiency Take 1 tablet (125 mcg total) by mouth daily. Indications: Vitamin D Deficiency 06/15/20 17 Active B Kcgfyrc-X-Uthde Acid (SM B SUPER VITAMIN COMPLEX OR)Indications: Nutritional Support Take 1 tablet by mouth daily. Indications: Nutritional Support Active allopurinol (ZYLOPRIM) 300 MG tabletIndicatio ns:Gout Prophylaxis TAKE 1 TABLET (300 MG TOTAL) BY MOUTH DAILY. 90 tablet 07/28/20 23 Active polycarbophil (FIBER) 625 MG tablet 1 tablet (625 mg total) 3 (three) times daily. Active warfarin (COUMADIN) 1 MG tabletIndicatio ns:Acute embolism and thrombosis of deep vein of lower extremity, unspecified laterality ([facility] HHS/HCC) TAKE 1& 1/2 TABLETS (1.5MG) BY MOUTH ONCE DAILY DIRECTED 45 tablet 01/03/20 24 Active aspirin EC (ECOTRIN) 81 MG tablet Take 1 tablet (81 mg total) by mouth daily. 90 tablet 3 03/24/20 24 2024 Active Continuous Glucose Sensor (FREESTYLE ALYSSA 3 SENSOR) MiscIndications :Type 2 diabetes mellitus with diabetic peripheral angiopathy without gangrene, without long-term current use of insulin ([facility] HHS/HCC) PLACE ONTO SKIN EVERY 14 DAYS 6 each 03/27/20 24 Active enoxaparin (LOVENOX) 100 mg/mL syringe Inject 1mL(100 mg) subcutaneous at 7 am and 7 pm on 06/17/24, 06/18/34. Inject 1 mL(100mg) 7 am only on 06/19/24, no evening dose. No lovenox on 06/20/24. Restart dose at 7 am and 7 pm 06/21/24 and 06/22/24. 5 mL 05/15/20 24 Active pantoprazole EC (PROTONIX) 40 MG tabletIndicatio ns:Gastroesopha geal reflux disease without esophagitis take one tablet by mouth daily 90 tablet 1 06/23/20 24 Active folic acid (FOLVITE) 1 MG tabletIndicatio ns:Nutritional Support take 1 tablet by mouth daily. 90 tablet 1 06/23/20 24 Active gabapentin (NEURONTIN) 600 MG tabletIndicatio ns:Polyneuropat hy associated with underlying disease (HHS/HCC) TAKE ONE TABLET BY MOUTH EVERY DAY WITH LUNCH DIRECTED 90 tablet 1 06/23/20 24 Active metoprolol succinate ER (TOPROL-XL) 50 MG 24 hr tabletIndicatio ns:NSTEMI (non-ST elevated myocardial infarction) (CMS/HCC HHS/HCC),Atrial flutter, unspecified type (CMS/HCC HHS/HCC) TAKE 1& 1/2 TABLETS (75MG) BY MOUTH ONCE DAILY WITH FOOD DIRECTED 135 tablet 10/03/19 25 Active warfarin (COUMADIN) 5 MG tabletIndicatio ns:Acute embolism and thrombosis of deep vein of lower extremity, unspecified laterality (CMS/HCC HHS/HCC) TAKE 1 TABLET (5 MG TOTAL) BY MOUTH DAILY. 90 tablet 10/06/19 25 Active atorvastatin (LIPITOR) 40 MG tabletIndicatio ns:Hyperlipidem ia TAKE ONE TABLET BY MOUTH EVERY DAY 90 tablet 10/23/19 25 Active ENTRESTO 24-26 MG tablet TAKE ONE TABLET BY MOUTH TWICE A DAY 180 tablet 1 10/23/19 25 Active spironolactone (ALDACTONE) 25 MG tabletIndicatio ns:Benign essential hypertension TAKE ONE TABLET BY MOUTH DAILY 30 tablet 11/29/19 25 Active enoxaparin (LOVENOX) 100 mg/mL syringe Inject 1ml (100mg) subcutaneous at 8am and 8pm on 12/16/24,12/17/24 ,and 8am only on 12/18/24.No evening dose on 12/18/24,no dose on 12/19/24,restart dose at 8am and 8pm on 12/20/24 and 12/21/24. 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 ([facility]) 07/27/2023 History of arterial embolism 03/12/2023 Psychophysiological insomnia 07/08/2022 Periodic limb movement 07/08/2022 Nocturnal hypoxemia 07/08/2022 Nonrheumatic aortic valve stenosis 02/27/2022 Coronary stent patent 12/26/2021 Syncope 12/25/2021 Methylenetetrahydrofolate reductase deficiency ( [facility]) 06/22/2018 Hematuria, unspecified type 01/06/2017 Acquired hypercoagulable state ([facility]) 016 Anemia 05/06/2016 Cardiomyopathy ([facility]) 03/25/2016 Overview (03/27/2020): Overview: Tachycardia induced now resolved with getting him out of atrial flutter in sinus rhythm with an ejection fraction of 55-60%. Coronary artery disease of n ative artery of [place] heart with stable angina pectoris 03/23/2016 Overview (03/27/2020): Overview: Status post left circumflex artery stent in 1998 and obtuse marginal promus Premier stent on 02/22/2015 with 50% left anterior descending coronary artery stenosis, stable. Nicotine dependence 03/23/2016 Overview (11/19/2022): 5 cigarettes per day. Failed Chantix (bad dreams). Nicotine patches were not effective and caused headache. Vitamin D deficiency 05/08/2015 Atrial flutter ([facility]) 11/22/2014 Overview (03/27/2020): Overview: Persistent with rapid ventricular response with successful conversion to sinus rhythm on 11/18/2014 on warfarin anticoagulation. Remains in sinus rhythm, INRs Managed by Dr. Abrams Peripheral neuropathy 07/24/2014 Obstructive sleep apnea 08/18/2013 Diabetes mellitus ([facility]) 11/22/2012 Acute embolism and thrombosi s of unspecified deep veins of unspecified lower extremity ([facility]) 05/23/2012 Benign essential hypertension 05/23/2012 Esophageal reflux 05/23/2012 Gout 05/23/2012 Hyperlipidemia 05/23/2012 Peripheral vascular disease 05/23/2012 Resolved Problems Problem Noted Date Diagnosed Date Resolved Date NSTEMI (non-ST elevated myoc ardial infarction) ([facility]) 07/09/2023 02/22/2024 CAD (coronary artery disease) 07/09/2023 02/22/2024 Cellulitis 02/04/2023 05/11/2023 Encounters Date Type Department Care Team Description 12/15/2024 Anti-Coag Telephone Call [facility] on [address] [id number] Miriam Grey RN Anticoagulation (INR) 12/15/2024 Orders Only [facility] MAIN BUSINESS OFFICE [address] [place] [address] Neno Chavez MD 12/06/2024 Ideaboveallie Message Enc [facility] on [address] [phone] [facility]lovenox [facility] 12/06/2024 Anti-Coag Telephone Call [facility] on [address] [address] Hali Stephens, RN Anticoagulation (Warfarin/Lovenox instructions) 12/01/2024 Anti-Coag Telephone Call [facility], [place] [address] Hali Stephens RN Anticoagulation (protime) 11/30/2024 Telephone [facility], [place] [address] Jessee Anderson MD Surgical Clearance 11/20/2024 Anti-Coag Telephone Call [facility] on [address] [facility], [place] [address] Miriam Grey RN Anticoagulation (INR) 11/03/2024 Anti-Coag Telephone Call [facility] on [address] [facility], [place] [address] Miriam Grey RN Anticoagulation (INR) 11/03/2024 Orders Only [facility] MA[facility] BUSINESS OFF[facility] [address] [place] [address] Neno Chavez MD 10/20/2024 Scan Jellyvision INFO SRVCS Scanned, [facility] 10/20/2024 Anti-Coag Telephone Call [facility] on [address] [facility], [place] [address] Hali Stephens RN Anticoagulation (protime) 10/06/2024 Anti-Coag Telephone Call [facility] on [facility], [address] [address] Miriam Grey RN Anticoagulation (INR) 09/22/2024 Orders Only [facility] MAIN BUSINESS OFFICE [address] [place] [address] Neno Chavez MD 09/22/2024 Anti-Coag Telephone Call [facility] on [facility], [address] [place] [address] Miriam Grey, RN Anticoagulation (INR) from Last 3 Months Immunizations Name Administration Dates Next Due FLUAD (IIV, Trivalent, 0.5 M L Pre-filled Syringe) 08/15/2024 Fluzone 6 Months+ Quad (0.5 mL Prefilled Syringe) 07/26/2023,09/30/2021,06/27/2019 Influenza (Generic) 09/27/2017 MODERNA COVID-19 (12+) MRNA, LNP-S, PF, 100 MCG/ 0.5 ML DOSE 03/08/2021,02/08/2021 Shingrix 11/23/2023,09/14/2023 Tdap (Boostrix) 02/04/2023 Family History Medical History Relation Comments Prostate Cancer Brother 1 Cancer Father lung Cancer Mother Colon Relation Status Comments Brother 1 Alive Brother 2 Alive Father (Age 74) Mother (Age 74) Sister Alive Social History Tobacco Use Types Packs/Day Years Used Date Smoking Tobacco: Former Cigarettes Smokeless Tobacco: Former Tobacco Cessation:Counseling Given: Not Answered Comments:The provider will provide you with information on quiting smoking Alcohol [...] How often do you attend chur or protestant services? Never 02/04/2023 Do you belong to any clubs o r organizations such as taoism groups, unions, fraternal or athletic groups, or [...] Recorded Patient Health Questionnaire-2 Score 0 11/23/2023 [facility] - Occupational Stress Questionnaire Answer Date [...] place to sleep or slept in a fci (including now)? No 07/11/2023 Sex and Gender Information Value Date Recorded Sex Assigned at Male 12/13/2018 8:47 AM CDT Legal Sex Male 7:24 PM CDT Gender Identity Male 12/13/2018 8:47 AM CDT Sexual Orientation Straight 12/13/2018 8: 47 AM CDT Last Filed Vital Signs Vital Sign Reading Time Taken Comments Blood Pressure 116/68 09/15/2024 8:57 AM ASSOCIATE WEB DEVELOPER Pulse 63 09/15/2024 8:57 AM ASSOCIATE WEB DEVELOPER Temperature 36.8 C (98.2 F) 11/23/2023 10:08 AM ASSOCIATE WEB DEVELOPER Respiratory Rate 16 02/22/2024 9:49 AM CDT Oxygen Saturation 98% 09/15/2024 8:57 AM ASSOCIATE WEB DEVELOPER Inhaled Oxygen Concentration - - Weight 111.5 kg (245 lb 14.4 oz) 09/15/2024 8:57 AM ASSOCIATE WEB DEVELOPER Height 185.4 cm (6' 1 ) 09/15/2024 8:57 AM ASSOCIATE WEB DEVELOPER Body Mass Index 32.44 09/15/2024 8:57 AM ASSOCIATE WEB DEVELOPER Plan of Treatment Upcoming Encounters Date Type Department Care Team (Late st Contact Info) Description 03/16/2025 9:00 AM CDT Office Visit [facility]-[address] [address] Jessee Anderson MD [address] [facility] [address] [place] [address] Health Maintenance Due Date Last Done Comments Kidney Health Evaluation 1960 Pneumococcal Vaccine: 65+ Years (1 of 2 - PCV) 1964 Hepatitis C 1976 RSV Immunization or 60+ Years (1 - Risk 60-74 years 1-dose series) 2018 Annual Medicare Wellness Visit 2023 ASCVD LDL 07/11/2024 07/11/2023, 06/27, 07/10/2023, Additional history exists Lipid Panel 07/11/2024 07/11/2023, 06/27, 07/10/2023, Additional history exists Hemoglobin A1C 08/24/2024 02/22/2024, 10/29, 07/11/2023, Additional history exists PHQ-2 (Physician [place]) 09/27/2024 11/23/2023 COVID-19 Vaccine ( season) 2025 08/15/2024, 03/08/2021, 02/08/2021 Colorectal Cancer Screening Colonoscopy (10 Years) 09/05/2025 09/05/2015 Diabetes: Retinopathy Eye Exam 10/19/2025 10/19/2023, 10/09/2019 DTaP, Tdap and Td Vaccines (2 - Td or Tdap) 02/04/2033 02/04/2023 AAA SCREENING Completed 07/10/2023 Zoster Vaccines Completed 11/23/2023, 09/14/2023 Influenza Adult Completed 08/15/2024, 06/29, 09/30/2021, Additional history exists Meningococcal B Vaccine Aged Out No l onger eligible based on patient's age to complete this topic Meningococcal Vaccine Aged Out No carlo lana eligible based on patient's age to complete this topic RSV Immunizations Under 20 Months Aged Out No longer eligible based on patient's age to complete this topic Goals Goal Patient Goal Type Associated Problems Recent Progress Patient-Stated? Author Family - family caregiver with be involved in care transitions and discharge planning Lifestyle No Tea Sepulveda, RN Medical Devices Implanted Type Area Blue Line Trimmer Device Identifier Shelf Expiration Date Model / Serial / Lot Wire Sterum Suture Kit [employer] #7 / Ccs-1 - [id number] Implanted:Qty: 1 on 07/12/2023 by Sarthak Zhao RNFA at [facility] Wire N/A: Sternum [employer] 04/27/2027 [id number] / / [id number] Description:2 Wires implante d Wire Sternotomy Suture Kit - [id number] Implanted:Qty: 1 on 07/12/2023 by Sarthak Zhao RNFA at [facility] N/A: Sternum [employer] 10/28/2027 [id number] / / [id number] Description:5 wires implante d Procedures Procedure Name Priority Date/Time Associated Diagnosis Comments MD REVIEW,HOME INR TEST Routine 12/15/2024 4:44 PM CDT MD REVIEW,HOME INR TEST Routine 12/01/2024 5:41 PM ASSOCIATE WEB DEVELOPER MD REVIEW,HOME INR TEST Routine 11/20/2024 7:36 PM ASSOCIATE WEB DEVELOPER MD REVIEW,HOME INR TEST Routine 11/03/2024 1:40 PM ASSOCIATE WEB DEVELOPER MD REVIEW,HOME INR TEST Routine 10/20/2024 3:58 PM ASSOCIATE WEB DEVELOPER MD REVIEW,HOME INR TEST Routine 10/06/2024 5:28 PM ASSOCIATE WEB DEVELOPER MD REVIEW,HOME INR TEST Routine 09/22/2024 3:53 PM ASSOCIATE WEB DEVELOPER PT/INR (OUTSIDE LAB) Routine 09/22/2024 HEMOGLOBIN, GLYCOSYLATED Routine 02/22/2024 Type 2 diabetes mellitus with diabetic peripheral angiopathy without gangrene, without long-term current use of insulin DIABETIC RETINOPATHY EXAM (NEGATIVE)(SCAN ORDER) Routine 10/19/2023 LIPID PANEL Routine 07/11/2023 4:[address] CHEST WO CON STAT 07/10/2023 2:04 AM CDT COLONOSCOPY GENERIC (SCAN ORDER) Routine 09/05/2015 from Last 3 Months or Most Recently Relevant to Health Maintenance Results * MD REVIEW,HOME INR TEST (12/15/2024 4:44 PM CDT) Only the most recent of7 resultswithin the time period is included. INR WHOLE BLOOD 2.2 2.000 - 3.000 [employer] MONITORING DEVICE 12/15/2024 4:44 PM CDT Neno Chavez MD LABORATORY Final Resul t [employer] MONITORING DEVICE * PT/INR (OUTSIDE LAB) (09/22/2024) INR WHOLE BLOOD 2.40 09/22/2024 us Default History Genericprovider LAB-OUTSIDE/ABST RACTED Final Result * A1C (BACK OFFICE) (02/22/2024) HGB A1C 5.9 % [facility] 02/22/2024 Godfrey Abrams MD LABORATORY Final Result [facility] [address] [place] [address], [place] * DIABETIC RETINOPATHY EXAM (NEGATIVE) (10/19/2023) us [facility] Scanned SCANNING Final Resu lt [facility] ON[facility] * LIPID PANEL (07/11/2023 4:56 AM CDT) CHOLESTEROL 86 <200 MG/DL 07/11/2023 6:51 AM CDT [facility] TRIGLYCERIDES 92 <150 MG/DL 07/11/2023 6:51 AM CDT [facility] HDL 43 >40.0 MG/DL 07/11/2023 6:51 AM CDT [facility] LDL (CALCULATED) 25 <100 MG/DL 07/11/20 6:51 AM CDT [facility] NON HDL CHOLESTEROL 43 <130 MG/DL 07/11 6:51 AM CDT [facility] CHOL/HDL RATIO 2.0 0.0 - 4.5 07/11/2023 6:51 AM CDT [facility] VLDL CALCULATION 18 5 - 55 MG/DL 07/11/2023 6:51 AM CDT [facility] LIPID INTERPRETATION 07/11/2023 6:51 AM CDT [facility] Comment: [facility] CONCENSUS REPORT RECOMMENDATIONS: ADULT CHILD LOW RISK: CHOLESTEROL <200 <170 TRIGLYCERIDE <150 --- HDL >=60 --- LDL <100 <110 BORDERLINE: CHOLESTEROL 200-239 170-199 TRIGLYCERIDE 150-199 --- HDL 40-59 --- LDL 100-159 110-129 HIGH RISK: CHOLESTEROL >=240 >=200 TRIGLYCERIDE >=200 --- HDL <40 --- LDL >=160 >=130 07/11/2023 4:56 AM CDT us Darren Hassan MD LABORATORY Final Result [facility] [address] [place] [address], [place] [phone] * CT CHEST WO CON (07/10/2023 2:04 AM CDT) Anatomical Region Laterality Modality Chest Computed Tomogra phy 07/10/2023 2:10 AM CDT Impressions 07/10/2023 2:13 AM CDT IMPRESSION: ===== 1. No pneumothorax. Findings on prior radiograph are artifactual. 2. Small pleural effusions with diffuse smooth interstitial thickening bilaterally suggestive of fluid overload 3. Bronchitis 4. Mild emphysema 5. Coronary artery calcifications and atherosclerotic aorta Referred By: PROVIDER NON-STAFF Interpreted By: Boom Blair MD, 07/10/2023 2:10 AM Narrative 07/10/2023 2:13 AM CDT EXAMINATION: CT Chest without contrast EXAM DATE/TIME: 07/10/2023 1:57 AM REASON FOR EXAM: Concern for tiny loculated pneumothorax at the left lateral lung base. also with infiltrates See Comments to the Radiologist COMPARISON: Portable chest radiograph 07/09/2023 TECHNIQUE: Axial CT images of the chest are obtained without the use of IV contrast agent. Subsequent coronal and sagittal reformatted sequences are greater for evaluation. A dose lowering technique was used for this procedure, which may include, but is not limited to, dose reduction technique, automated exposure control, iterative reconstruction, ALARA (As Low As Reasonably Achievable), or Image Gently techniques. FINDINGS: Heart size normal. No pericardial effusion. Coronary artery calcifications. Left aortic arch. Thoracic aorta normal in caliber throughout with moderate calcifications. No axillary lymphadenopathy. No mediastinal lymphadenopathy. Central airways are patent. There are tiny bilateral pleural effusions. There is diffuse smooth interstitial thickening bilaterally with lower lung predominance suggestive of fluid overload. Mild diffuse bronchial wall thickening noted bilaterally no convincing mucous plugging. No pulmonary masses. Emphysematous changes are noted in the apices. No pneumothorax. Probable imaging shows no acute osseous abnormalities. Multilevel endplate degenerative changes are seen. No acute abnormalities in the visualized upper abdomen. ===== Procedure Note Boom Blair MD - 07/10/2023 EXAMINATION: CT Chest without contrast EXAM DATE/TIME: 07/10/2023 1:57 AM REASON FOR EXAM: Concern for tiny loculated pneumothorax at the leftlateral lung base. also with infiltrates See Comments to the Radiologist COMPARISON: Portable chest radiograph 07/09/2023 TECHNIQUE: Axial CT images of the chest are obtained without the use of IVcontrast agent. Subsequent coronal and sagittal reformatted sequences aregreater for evaluation. A dose lowering technique was used for thisprocedure, which may include, but is not limited to, dose reductiontechnique, automated exposure control, iterative reconstruction, ALARA (AsLow As Reasonably Achievable), or Image Gently techniques. FINDINGS: Heart size normal. No pericardial effusion. Coronary arterycalcifications. Left aortic arch. Thoracic aorta normal in caliberthroughout with moderate calcifications. No axillary lymphadenopathy. Nomediastinal lymphadenopathy. Central airways are patent. There are tinybilateral pleural effusions. There is diffuse smooth interstitialthickening bilaterally with lower lung predominance suggestive of fluidoverload. Mild diffuse bronchial wall thickening noted bilaterally noconvincing mucous plugging. No pulmonary masses. Emphysematous changesare noted in the apices. No pneumothorax. Probable imaging shows noacute osseous abnormalities. Multilevel endplate degenerative changes areseen. No acute abnormalities in the visualized upper abdomen. ===== IMPRESSION: ===== 1. No pneumothorax. Findings on prior radiograph are artifactual. 2. Small pleural effusions with diffuse smooth interstitial thickeningbilaterally suggestive of fluid overload 3. Bronchitis 4. Mild emphysema 5. Coronary artery calcifications and atherosclerotic aorta Referred By: PROVIDER NON-STAFF Interpreted By: Boom Blair MD, 07/10/2023 2:10 AM Yamila Ronaldo Krishna SOLUTION LEAD CT Final Resul t * COLONOSCOPY (09/05/2015) us Documents Scanned SCANNING Final Result from Last 3 Months or Most Recently Relevant to Health Maintenance Insurance [facility] Advance Directives Documents on File Type Date Recorded Patient Pressure Tank Operator Expl anation Legal Documents 12/13/2018 Legal Documents 11/24/2018 * Full Code (Latest Code Status on File) Date Activated Date Inactivated Comments 07/21/2023 11:03 AM * Full Code Date Activated Date Inactivated Comments 07/12/2023 2:59 PM 07/18/2023 1:44 PM * Full Code Date Activated Date Inactivated Comments 07/10/2023 11:08 PM 07/12/2023 2:59 PM * DNR Date Activated Date Inactivated Comments 07/09/2023 7:47 PM 07/10/2023 11:08 PM * Full Code Date Activated Date Inactivated Comments 07/09/2023 5:38 PM 07/09/2023 7:47 PM Care Teams Verifying Machine Operator Relationship Specialty Start Date End Date Godfrey Abrams MD [address] [place] [address] PCP - General 09/18/14
--- OUTSIDE RECORDS SUMMARY | 2024-12-19 01:08 | XMS_ITS | Encounter Summary ---
Author Organization [facility] Address [address] [place] [address] Care Team Providers Care Ceramic Mold Designer Name Role Phone Godfrey Abrams MD Primary Care Provider [phone] Encounter Details Date Type Department Care Team (Late st Contact Info) Description 12/15/2024 Orders Only [facility] MAIN BUSINESS OFFICE [address] [place] [address] Neno Chavez MD [facility] [address] [place] [address] Social History Tobacco Use Types Packs/Day Years [...] How often do you attend chur or yazidi services? Never 02/04/2023 Do you belong to any clubs o r organizations such as hoahaoism groups, unions, fraternal or athletic groups, or [...] Recorded Patient Health Questionnaire-2 Score 0 11/23/2023 [facility] [place] of Occupat ional Health - Occupational Stress [...] place to sleep or slept in a snf (including now)? No 07/11/2023 Sex and Gender [...] PM CDT Colten Sepulveda RN Active * Do you have serious difficulty walking or climbing stairs? Answer Date of Assessment Author Status No 07/11/2023 11:14 PM CDT Colten Sepulveda RN Active * Do you have difficulty dressing [...] Description 03/16/2025 9:00 AM CDT Office Visit [facility] [phone] Jessee Anderson MD 3 [facility] [address] [place] [phone] documented as of this encounter Goals Goal Patient Goal Type Associated Problems Recent Progress Patient-Stated? Author Family - family caregiver with be involved in care transitions and discharge planning Lifestyle No Tea Sepulveda RN documented as of this encounter Procedures Procedure Name Priority Date/Time Associated Diagnosis Comments MD REVIEW,HOME INR TEST Routine 12/15/2024 4:44 PM CDT documented in this encounter Results * MD REVIEW,HOME INR TEST (12/15/2024 4:44 PM CDT) INR WHOLE BLOOD 2.2 2.000 - 3.000 [facility] HOME MONITORING DEVICE 12/15/2024 4:44 PM CDT us Neno Chavez MD LABORATORY Final Resul t [facility]ITOR[facility] documented in this encounter Visit Diagnoses Not on filedocumented in this encounter Additional Health Concerns Assessment Noted Time PHQ-9 Depression Total Score: 0 03/03/20 21 2:55 PM CDT documented as of this encounter Care Teams Ceramic Mold Designer Relationship Specialty Start Date End Date Godfrey Abrams MD [address] [place] [address] PCP - General 09/18/14 documented as of this encounter
--- OUTSIDE RECORDS SUMMARY | 2024-12-19 01:08 | XMS_ITS | Encounter Summary ---
Author Organization [facility] Facility Care Team Providers Care Enterprise Architect Manager Name Role Phone Godfrey Abrams MD Primary Care Provider [phone] Encounter Details Date Type Department Care Team (Latest Contact Info) Description 04/28/2017 Orders Only [facility] ProviderMaria De Jesus MD [address] [place] [address] Social History Tobacco Use Types Packs/Day Years Used Date Smoking Tobacco: Never Assessed Sex and Gender Information Value Date Recorded Sex Assigned at Not on file Legal Sex Male 10:16 AM FIFTH HAND Gender Identity Not on file Sexual Orientation Not on file documented as of this encounter Plan of Treatment Not on file documented as of this encounter Procedures Procedure Name Priority Date/Time Associated Diagnosis Comments SCAN - LABS 07/20/2017 12:00 AM CDT documented in this encounter Results * SCAN - LABS (07/20/2017 12:00 AM CDT) Narrative 07/20/2017 12:00 AM CDT Ordered by an unspecified provider. Historical Provider Final Res ult documented in this encounter Visit Diagnoses Not on filedocumented in this encounter Care Teams Enterprise Architect Manager Relationship Specialty Start Date End Date Godfrey Abrams MD PCP - General Internal Medicine 06/15/18 documented as of this encounter
--- OUTSIDE RECORDS SUMMARY | 2024-12-19 01:09 | XMS_ITS | Encounter Summary ---
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 Historical Provider Final Res ult documented in this encounter Visit Diagnoses Not on filedocumented in this encounter Care Teams Precision Instrument And Tool Maker Relationship Specialty Start Date End Date Godfrey Abrams MD PCP - General Internal Medicine 06/15/18 documented as of this encounter
--- OUTSIDE RECORDS SUMMARY | 2024-12-19 01:09 | XMS_ITS | Encounter Summary ---
Author Organization [facility] Address [facility] [place] [address] Care Team Providers Care Supervisor Vegetable Farming Name Role Phone Godfrey Abrams MD Primary Care Provider [phone] Encounter Details Date Type Department Care Team (Late st Contact Info) Description 05/15/2024 Atraverda Message Enc [facility] [address] [facility] Provider warfarin/lovenox instructions Social History Tobacco Use [...] How often do you attend chur or methodist services? Never 02/04/2023 Do you belong to any clubs o r organizations such as yazidism groups, unions, fraternal or athletic groups, or [...] Recorded Patient Health Questionnaire-2 Score 0 11/23/2023 [facility] of Occupat ional Health - Occupational Stress [...] place to sleep or slept in a jail (including now)? No 07/11/2023 Sex and Gender [...] Description 03/16/2025 9:00 AM CDT Office Visit [facility] [address] [phone] Jessee Anderson MD 3 [facility] [address] [place] [phone] documented as of this encounter Goals Goal [...] documented as of this encounter Care Teams Supervisor Vegetable Farming Relationship Specialty Start Date End Date Godfrey Abrams MD [address] [place] [address] PCP - General 09/18/14 documented as of this encounter
--- OUTSIDE RECORDS SUMMARY | 2024-12-19 01:09 | XMS_ITS | Encounter Summary ---
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 Historical Provider Final Res ult * SCAN - LABS (03/25/2016 12:00 AM CDT) Narrative 03/25/2016 12:00 AM CDT Ordered by an unspecified provider. Historical Provider Final Res ult documented in this encounter Visit Diagnoses Not on filedocumented in this encounter Care Teams Soft Drink Powder Mixer Relationship Specialty Start Date End Date Godfrey Abrams MD PCP - General Internal Medicine 06/15/18 documented as of this encounter
--- OUTSIDE RECORDS SUMMARY | 2024-12-19 01:09 | XMS_ITS | Encounter Summary ---
Author Organization 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 Historical Provider [facility] Final Result documented in this encounter Visit Diagnoses Not on filedocumented in this encounter Care Teams Concrete Engineer Relationship Specialty Start Date End Date Godfrey Abrams MD PCP - General Internal Medicine 06/15/18 documented as of this encounter
--- OUTSIDE RECORDS SUMMARY | 2024-12-19 01:09 | XMS_ITS | Encounter Summary ---
Author Organization [facility] Address [address] [place] [address] Care Team Providers Care Psych Rn Name Role Phone Godfrey Abrams MD Primary Care Provider [phone] Encounter Details Date Type Department Care Team (Late st Contact Info) Description 09/22/2023 iSECUREtrac Message Enc [facility] Family & Internal Medicine [address] [phone] Sarkis, [facility] Provider Dilated Diabetic Eye Exam Social History Tobacco Use Types Packs/Day Years Used Date Smoking Tobacco: Former Cigarettes Smokeless Tobacco: Former Comments:The provider will p rovide you with information on quiting smoking Alcohol Use Standard Drinks/Week Comments Yes 0 (1 standard drink = 0.6 oz pur e alcohol) 3 drinks nightly OASIS D0700: Social Isolation Answer Da te [...] How often do you attend chur or restorationist services? Never 02/04/2023 Do you belong to any clubs o r organizations such as hinduism groups, unions, fraternal or athletic groups, or [...] Date Recorded Patient Health Questionnaire-2 Score 0 11/19/2022 [facility] of Occupat ional Health - Occupational Stress [...] place to sleep or slept in a half-way (including now)? No 07/11/2023 Sex and Gender [...] No 07/11/2023 11:14 PM CDT Colten Sepulveda, RN Active * Because of a physical, [...] Description 03/16/2025 9:00 AM CDT Office Visit [facility] [phone] Jessee Anderson MD 3 [facility] [address] [place] [phone] documented as of this encounter Goals Goal [...] documented as of this encounter Care Teams Psych Rn Relationship Specialty Start Date End Date Godfrey Abrams MD [address] [place] [address] PCP - General 09/18/14 documented as of this encounter
--- OUTSIDE RECORDS SUMMARY | 2024-12-19 01:09 | XMS_ITS | Encounter Summary ---
Author Organization [facility] Address [address] [place] [address] Care Team Providers Care Certified Bench Jeweler Technician Name Role Phone Godfrey Abrams MD Primary Care Provider [phone] Encounter Details Date Type Department Care Team (Late st Contact Info) Description 07/21/2023 Pixonic Message Enc [facility] Family & Internal Medicine [address] [phone] Sarkis, [facility] Provider Diabetic eye exam Social History Tobacco Use Types Packs/Day Years Used Date Smoking Tobacco: Every Day Cigarettes 0.8 40 Smokeless Tobacco: Former Comments:The provider will p rovide you with information on quiting smoking Alcohol Use Standard Drinks/Week Comments Yes 0 (1 standard drink = 0.6 oz pur e alcohol) 3 drinks nightly Humiliation, Afraid, Rape, and Kick questionnair e [...] 02/04/2023 How often do you attend chur ch or rastafarian services? Never 02/04/2023 Do you belong to any clubs o r organizations such as christian groups, unions, fraternal or athletic groups, or [...] Recorded Patient Health Questionnaire-2 Score 0 11/19/2022 [facility] of Occupat ional Health - Occupational Stress [...] place to sleep or slept in a prison (including now)? No 07/11/2023 Sex and Gender [...] PM CDT Colten Sepulveda, ALEX Active * Because of a physical, mental, or emotional condition, do you have difficulty doing errands alone such as visiting a doctor's office or shopping? Answer Date of Assessment Author Status No 07/11/2023 11:14 PM LESLEET Colten Sepulveda RN Active documented as of this encounter Mental Status * Because of a physical, mental, or emotional condition, do you have serious difficulty concentrating, remembering, or making decisions? Answer Entry Date Author Status No 07/11/2023 11:14 PM CDT Colten Sepulveda, RN Active documented in this encounter Plan of Treatment Upcoming Encounters Date Type Department Care Team (Late st Contact Info) Description 03/16/2025 9:00 AM CDT Office Visit [facility] [phone] Jessee Anderson MD [address] [phone] documented as of this encounter Goals Goal Patient Goal Type Associated Problems Recent Progress Patient-Stated? Author Family - family caregiver with be involved in care transitions and discharge planning Lifestyle No Tea Sepulveda, RN documented as of this encounter Visit Diagnoses Not on filedocumented in this encounter Additional Health Concerns Assessment Noted Time PHQ-9 Depression Total Score: 0 03/03/20 21 2:55 PM CDT documented as of this encounter Care Teams Certified Bench Jeweler Technician Relationship Specialty Start Date End Date Godfrey Abrams MD [address] [place] [address] PCP - General 09/18/14 documented as of this encounter
[2024-12-19 13:00] VITALS: BP 137/59; PULSE 77; RESP 20; TEMP 35.9; O2SAT 100; BMI 30.4
[2024-12-19] MEDS: LACTATED RINGERS 1,000 ML 150 ML IV CONT (13:14)
--- NOTE | 2024-12-19 13:16 | WPDANESEPPF ---
Anes - Initial Pre Proc Eval Procedure: Operation Date: 12/19/24 14:00 Proposed Procedures p Esophagogastroduodenoscopy & Colonoscopy - Byron Tse MD Date/Time: 12/19/24 13:16 Surgeon: Byron Tse MD Pre Op Diagnosis: Personal hx of colon polyps,family hx of neoplasm Patient Data Age: 64 Gender: M Height: 1.85 m Weight: 104.7 kg Last Vital Signs Temp 35.9 C L 12/19/24 13:00 Pulse 77 12/19/24 13:00 Resp 20 12/19/24 13:00 BP 137/59 L 12/19/24 13:00 Pulse Ox 100 12/19/24 13:00 O2 Del Method Room Air 12/19/24 13:00 Allergies Allergy/AdvReac Type Severity Reaction Status Date / Time No Known Allergies Allergy Verified 12/19/24 12:56 Home Medications ?Medication ?Instructions ?Recorded ?Confirmed ?Type allopurinol 300 mg tablet 300 mg PO DAILY 07/09/23 12/19/24 History atorvastatin 40 mg tablet 40 mg PO HS 07/09/23 12/19/24 History folic acid 1 mg tablet 1 mg PO DAILY 07/09/23 12/19/24 History gabapentin 600 mg tablet 600 mg PO DAILY 07/09/23 12/19/24 History metoprolol succinate 100 mg 75 mg PO DAILY 07/09/23 12/19/24 History tablet,extended release 24 hr pantoprazole 40 mg tablet,delayed 40 mg PO DAILY 07/09/23 12/19/24 History release warfarin 5 mg tablet 5 mg PO DAILY 07/09/23 12/19/24 History sacubitril 24 mg-valsartan 26 mg 1 tablet PO BID 07/04/24 12/19/24 History tablet (Entresto) spironolactone 25 mg tablet 25 mg PO DAILY 07/04/24 12/19/24 History aspirin 81 mg tablet 81 mg PO DAILY 12/12/24 12/19/24 History enoxaparin 100 mg/mL subcutaneous 100 mg subcut BID Coumadin Bridging 12/19/24 12/19/24 History syringe Patient hx anesthesia problems: none Family hx anesthesia problems: none Results Review: All pre-operative results and documents have been reviewed as part of the pre-operative evaluation. FOR[facility]LY [facility], [facility] Past Medical History Medical History Abnormal CT scan GERD (gastroesophageal reflux disease) Tobacco use Peripheral neuropathy Cardiomyopathy ETHEL (obstructive sleep apnea) HLD (hyperlipidemia) Chronic anticoagulation MTHFR gene mutation Surgical History Surgical History S/P CABG x 4 Family History Family History Mother Diabetes mellitus Colon cancer Breast cancer Mother No problems noted. Sibling Malignant neoplasm of prostate Other Family history of malignant neoplasm Hypertension Social History Social History Smoking packs per day: 1.5 Smoking cigarettes per day: 30.0 Years smoked: 40 Smoking pack-years: 60.00 Smoking status: Former smoker Tobacco type: cigarettes Smoking end date: 07/09/23 Additional smoking assessment comments: states he had cut back smoking less than 1 pkg/day in last couple of years Alcohol intake: current Drinks per week: 14 Substance use: current Substance use type: marijuana Other substance usage details: edibles Last use: 07/08/23 10pm medical marijuana Lack of Transportation: No Lack of Food: Never True Current Housing: I Have Housing Concerned About Future Housing: No Difficulty Paying Gas/Electric Bills: No Difficulty Paying for Meds: No Currently Unemployed: No Education: Trade/Vocational Certificate Difficulty w/ Childcare or Family Care: No Living arrangements: with family Additional living arrangements comments: with sp Spiritual care concerns: No Anes - Eval Final PreProcedure Day of Procedure 12/19/24 13:16 Patient weight: obese Heart: regular rate and rhythm Lungs: clear to auscultation Airway: Mallampati scale class II Neurological: alert and oriented Last oral intake: >/= 8 hours ASA classification: IV Emergent: no Anesthetic plan: proceed Anesthesia type and monitoring: general GIVS and standard monitoring Results Review: All pre-operative results and documents have been reviewed as part of the pre-operative evaluation. Informed Consent: The patient's anesthetic plan and its attendant risks and benefits were discussed with the patient/family/POA. Questions were solicited and answers provided to the satisfaction of the patient/family/POA.
--- NOTE | 2024-12-19 13:42 | PM.IMHP ---
H&P: HPI History of Present Illness Date/Time: 12/19/24 13:42 Chief Complaint: GERD-history of colon polyps Narrative: the patient has a longstanding history of GERD, currently controlled with pantoprazole. Of note, a CT scan of the chest revealed some thickening in the mid esophagus, therefore he is referred for endoscopic investigation. He denies dysphagia , however when he drinks liquids at the same time of solids, he can feel mild chest discomfort and excessive burping. His last colonoscopy was in 2018, revealing hyperplastic polyp. Review of Systems Review of Systems: All systems reviewed & are unremarkable except as noted in HPI and below PMFSH Past Medical History Medical History Abnormal CT scan GERD (gastroesophageal reflux disease) Tobacco use Peripheral neuropathy Cardiomyopathy ETHEL (obstructive sleep apnea) HLD (hyperlipidemia) Chronic anticoagulation MTHFR gene mutation Surgical History Surgical History S/P CABG x 4 Family History Family History Mother Diabetes mellitus Colon cancer Breast cancer Mother No problems noted. Sibling Malignant neoplasm of prostate Other Family history of malignant neoplasm Hypertension Social History Social History Smoking packs per day: 1.5 Smoking cigarettes per day: 30.0 Years smoked: 40 Smoking pack-years: 60.00 Smoking status: Former smoker Tobacco type: cigarettes Smoking end date: 07/09/23 Additional smoking assessment comments: states he had cut back smoking less than 1 pkg/day in last couple of years Alcohol intake: current Drinks per week: 14 Substance use: current Substance use type: marijuana Other substance usage details: edibles Last use: 07/08/23 10pm medical marijuana Lack of Transportation: No Lack of Food: Never True Current Housing: I Have Housing Concerned About Future Housing: No Difficulty Paying Gas/Electric Bills: No Difficulty Paying for Meds: No Currently Unemployed: No Education: Trade/Vocational Certificate Difficulty w/ Childcare or Family Care: No Living arrangements: with family Additional living arrangements comments: with sp Spiritual care concerns: No Meds Home Medications and Allergies Home Medications ?Medication ?Instructions ?Recorded ?Confirmed ?Type allopurinol 300 mg tablet 300 mg PO DAILY 07/09/23 12/19/24 History atorvastatin 40 mg tablet 40 mg PO HS 07/09/23 12/19/24 History folic acid 1 mg tablet 1 mg PO DAILY 07/09/23 12/19/24 History gabapentin 600 mg tablet 600 mg PO DAILY 07/09/23 12/19/24 History metoprolol succinate 100 mg 75 mg PO DAILY 07/09/23 12/19/24 History tablet,extended release 24 hr pantoprazole 40 mg tablet,delayed 40 mg PO DAILY 07/09/23 12/19/24 History release warfarin 5 mg tablet 5 mg PO DAILY 07/09/23 12/19/24 History sacubitril 24 mg-valsartan 26 mg 1 tablet PO BID 07/04/24 12/19/24 History tablet (Entresto) spironolactone 25 mg tablet 25 mg PO DAILY 07/04/24 12/19/24 History aspirin 81 mg tablet 81 mg PO DAILY 12/12/24 12/19/24 History enoxaparin 100 mg/mL subcutaneous 100 mg subcut BID Coumadin Bridging 12/19/24 12/19/24 History syringe Allergies Allergy/AdvReac Type Severity Reaction Status Date / Time No Known Allergies Allergy Verified 12/19/24 12:56 Vital Signs Vital Signs - 24 hr 12/19/24 13:00 Temperature 96.6 F L Pulse Rate 77 Respiratory Rate 20 Blood Pressure 137/59 L Pulse Oximetry 100 Oxygen Delivery Room Air Exam Const: General: cooperative and healthy appearing Resp: Effort & Inspection: normal respiratory effort and able to speak in complete sentences Auscultation: clear to auscultation bilaterally Cardio: Rate: regular rate Rhythm: regular rhythm GI: Inspection: normal to inspection GI Palp: No No hepatosplenomegaly present Auscultation: normal bowel sounds Rectal Exam: deferred Skin: General skin exam: normal color Psych: Appearance: grossly normal Mental Status: mental status grossly normal Assessment and Plan Assessment and plan (1) GERD (gastroesophageal reflux disease): Code(s): K21.9 - Gastro-esophageal reflux disease without esophagitis Status: Acute Assessment and Plan: The patient is deemed a good candidate for the procedures. Consent signed. Will proceed. (2) History of colonic polyps: Code(s): Z86.0100 - Personal history of colon polyps, unspecified Status: Acute
--- NOTE | 2024-12-19 14:11 | SUR.OPER ---
EGD END 1404 COLONOSCOPY START 1412
[2024-12-19 14:40] VITALS: BP 104/67; PULSE 62; RESP 26; O2SAT 96
[2024-12-19 14:50] VITALS: BP 135/82; PULSE 63; RESP 18; O2SAT 99
[2024-12-19 15:00] VITALS: BP 157/95; PULSE 82; RESP 21; O2SAT 100
== END 2024-12-19 15:17 | disposition home or self-care (01) ==
PROVIDERS: PCP Internal Medicine; Referring Provider Nurse Practitioner Family; Visit Provider Internal Medicine Gastroenterology
PROC: 0DJ08ZZ Inspection of Upper Intestinal Tract, Via Natural or Artificial Opening Endoscopic (ICD-10-PCS; CPT 45378; principal; 2024-12-19 14:00)
DX: Z12.11 Encounter for screening for malignant neoplasm of colon (principal); D12.2 Benign neoplasm of ascending colon; D12.3 Benign neoplasm of transverse colon; D12.4 Benign neoplasm of descending colon; D12.5 Benign neoplasm of sigmoid colon; K29.30 Chronic superficial gastritis without bleeding; K21.9 Gastro-esophageal reflux disease without esophagitis; G62.9 Polyneuropathy, unspecified; E78.5 Hyperlipidemia, unspecified; G47.33 Obstructive sleep apnea (adult) (pediatric); F12.90 Cannabis use, unspecified, uncomplicated; Z79.82 Long term (current) use of aspirin; Z79.01 Long term (current) use of anticoagulants; Z98.890 Other specified postprocedural states; Z95.1 Presence of aortocoronary bypass graft; Z87.891 Personal history of nicotine dependence; Z86.39 Personal history of other endocrine, nutritional and metabolic disease; Z80.0 Family history of malignant neoplasm of digestive organs; Z80.3 Family history of malignant neoplasm of breast; Z80.42 Family history of malignant neoplasm of prostate
CPT/HCPCS: 43239; 45385; 88305; J2003; J2704; J7120

== ENCOUNTER 2025-06-05 08:58 | Outpatient (CLI) | payer MEDICARE, SELFPAY ==
[2025-06-05 09:47] LABS: INR 2.1; Prothrombin Time 22.9 Seconds (11.1-14.7)
[2025-06-05 09:48] LABS: Anion Gap 9 mmol/L (4-12); Blood Urea Nitrogen 18 mg/dL (9-20); Calcium 9.9 mg/dL (8.4-10.2); Carbon Dioxide 25 mmol/L (22-30); Chloride 108 mmol/L (98-107); Estimated Glomerular Filt Rate 49; Glucose 147 mg/dL (65-110); Potassium 5.4 mmol/L (3.4-5.0); Sodium 142 mmol/L (137-145)
[2025-06-05 09:48] LABS: Partial Thromboplastin Time 43.6 Seconds (22.3-36.8)
--- OUTSIDE RECORDS SUMMARY | 2025-06-05 09:55 | XMS_ITS | Clinical Summary ---
Author Organization [facility] Address [address] [place] [address] Phone Care Team Providers Care Hatchery Employee Name Role Phone Godfrey Abrams MD Primary Care Provider [phone] Kyle Davey MD Unavailable [phone] Allergies No known active allergies Medications allopurinol (ZYLOPRIM) 300 mg tabletIndication s:prevention of acute gout attack Take 1 tablet by mouth every morning 7 Active aspirin 81 mg chewable tabletIndication s:Myocardial Reinfarction Prevention Take 1 tablet by mouth daily 7 Active folic acid (FOLVITE) 1 mg tabletIndication s:Folate Deficiency Take 1 tablet by mouth daily [address] (PROTONIX) 40 mg EC tabletIndication s:Treatment of Non-Bleeding Gastric Disorder Take 1 tablet by mouth daily 7 Active warfarin (COUMADIN) 5 mg tabletIndication s:Other (complete free text reason below) Take 1 tablet by mouth nightly 7 Active gabapentin (NEURONTIN) 600 mg tabletIndication s:Neuropathic Pain Take 1 tablet by mouth daily 8 Active metoprolol XL (TOPROL-XL) 50 mg extended release tabletIndication s:hypertension Take 1.5 tablets (75 mg total) by mouth daily Active cholecalciferol (VITAMIN D-3) 5,000 unit capsuleIndicatio ns:Vitamin D Deficiency Take 1 capsule by mouth daily Active atorvastatin (LIPITOR) 40 mg tabletIndication s:hyperlipidemia Take 1 tablet by mouth daily Active vitamin B complex capsuleIndicatio ns:Vitamin Deficiency Take 1 capsule by mouth daily Active Entresto 24-26 mg tabletIndication s:chronic heart failure Take 1 tablet by mouth 2 (two) times a day 3 Active spironolactone (ALDACTONE) 25 mg tabletIndication s:hypertension Take 1 tablet by mouth every morning 3 Active psyllium 0.52 gram capsuleIndicatio ns:constipation Take 1 capsule by mouth every morning Active glimepiride (AMARYL) 4 mg tablet Take 1 tablet (4 mg total) by mouth daily 5 Active heparin (heparin flush) 10 unit/mL syringeIndicatio ns:Maintain Patency of Indwelling Vascular Catheter Administer 5 mL (50 Units total) into IV catheter as needed (catheter maintenance) 5 Active doxycycline (VIBRAMYCIN) 100 mg capsule Take 1 tablet/capsule (100 mg total) by mouth 2 (two) times a day 60 tablet/capsu le 5 05/17/20 25 Active Problems Problem Noted Date Diagnosed Date Pressure injury of toe of right foot, stage 4 Acute kidney injury 01/19/2025 Osteomyelitis of great toe 01/18/2025 PAD (peripheral artery disease) 01/18/2025 Esophageal thickening 08/09/2024 Multiple pulmonary nodules 08/09/2024 Paroxysmal atrial fibrillation 07/13/2023 Obstructive sleep apnea on CPAP 07/08/2022 Periodic limb movement 07/08/2022 Nocturnal hypoxemia [...] patches were not effective and caused headache. 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 010 Chronic systolic CHF (congestive heart failure) DM (diabetes mellitus), type 2 with peripheral vascular complications Gout Neuropathy PVD (peripheral vascular disease) Encounters Date Type Department Care Team Description 05/29/2025 11:15 AM CDT Orders Only [facility] Office Building 2 Wound Care [address] [place] [address] 05/15/2025 9:30 AM CDT Orders Only [facility] Office Building 2 Wound Care [address] [place] [address] 05/01/2025 9:15 AM CDT Orders Only [facility] Office Building 2 Wound Care [address] [place] [address] 04/17/2025 9:30 AM CDT Orders Only [facility] Office Building 2 Wound Care [address] [place] [address] 04/03/2025 3:15 PM CDT Orders Only [facility] Office Building 2 Wound Care [address] [place] [address] 03/20/2025 1:45 PM CDT Orders Only [facility] Office Building 2 Wound Care [address] [place] [address] 03/13/2025 10:15 AM CDT Orders Only [facility] Office Building 2 Wound Care [address] [place] [address] from Last 3 Months Immunizations Immunization Administration Dates Next Due Influenza, Quadrivalent, Spl it, Preservative Free, Intramuscular 07/26/2023 Moderna SARS-CoV-2 Monovalent Vaccination (12+ Y RS) 03/08/2021,02/08/2021 Tdap 02/04/2023 Surgical History Surgery Date Site/Laterality Comments CORONARY ARTERY BYPASS GRAFT 07/12/2023 THROMBECTOMY 09/27/2009 - 09/26/2010 Bilateral lower extremities (arterial) CARPAL TUNNEL RELEASE 09/27/2006 - 09/26/2007 Right CARPAL TUNNEL RELEASE 09/27/2007 - 09/26/2008 Left TRIGGER FINGER RELEASE 09/27/2007 - 09/26/2008 EAR SURGERY 09/27/1988 - 09/26/1989 Ruptured ear drum CORONARY ANGIOPLASTY WITH ST ENT PLACEMENT 09/27/2014 - 09/26/2015 to circumflex CORONARY ANGIOPLASTY WITH ST ENT PLACEMENT 09/27/1999 - 09/26/2000 COLONOSCOPY 12/26/2024 - 01/24/2025 ESOPHAGOGASTRODUODENOSCOPY 12/26/2024 - 01/24/[address] ENT PLACEMENT 09/27/2018 - 09/26/2019 to obtuse marginal CARDIOVERSION 09/27/2014 - 09/26/2015 for a flutter CARDIAC CATHETERIZATION 01/23/2025 Lower Extremity/R ight Procedure: Right lower extremity angiogram with possible intervention; Surgeon: Aleksander Power MD; Location: [facility] CARDIAC PUBLISHING AGENT; Service: Vascular; Laterality: Right; Medical devices from this surgery are in the Medical Devices section. CARDIAC CATHETERIZATION 01/23/2025 N/A Procedure: AORTOGRAM ABDOMINAL S&I [id number]; Surgeon: Aleksander Power MD; Location: [facility] CARDIAC PUBLISHING AGENT; Service: Vascular; Laterality: N/A; Medical devices from this surgery are in the Medical Devices section. Medical History Medical History Date Comments PVD (peripheral vascular disease) Arthritis Ruptured lumbar disc HTN (hypertension) Hyperlipidemia Neuropathy Gout Obstructive sleep apnea on CPAP Pulmonary nodule Polyp, intestinal 12/2024 Chronic systolic CHF (congestive heart failure) (HCC) Paroxysmal atrial fibrillation (HCC) 07/13/2023 NSTEMI (non-ST elevated myocardial infarction) ( HCC) 07/09/2023 Coronary artery disease DM (diabetes mellitus), type 2 with peripheral vascular complications (HCC) Arterial embolism and thromb osis of lower extremity (HCC) 2010 bilateral lower legs Hx of atrial flutter 2014 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 2010 Family History Medical History Relation Name Comments Prostate cancer Brother 1 No Known Problems Brother 2 Miscarriages / Stillbirths Daughter Neuropathy Daughter Lung cancer Father parkinson Father Breast cancer Mother Colon cancer Mother No Known Problems Sister Relation Name Status Comments Brother 1 Alive Brother 2 Alive Daughter Alive Father Mother Sister Alive Social History Tobacco Use Types Packs/Day Years Used Date Smoking Tobacco: Former Cigarettes 1 40 1 - 07/09/2023 Smokeless Tobacco: Never Tobacco Cessation:Counseling Given: Not Answered Alcohol Use Standard Drinks/Week Comments Yes 0 (1 standard drink = 0.6 oz pure alcohol) sometimes daily, not for a week 01/18/25 OASIS D0700: Social Isolation Answer Da te Recorded Frequency of experiencing loneliness or isolatio n Never 02/03/[address] [facility] Utilities Answer Date Recorded In the past 12 months has e [employer], gas, oil, or water [employer] threatened to shut off services in your home? No 01/19/2025 Social Connection and Isolation Panel Answer Date Recorded In a typical week, how many times do you talk on the phone with family, friends, or neighbors? More than three times a week 01/19/2025 How often do you get togethe r with friends or relatives? More than three times a week 01/19/2025 How often do you attend chur ch or zoroastrianism services? Never 01/19/2025 Do you belong to any clubs o r organizations such as restorationism groups, unions, fraternal or athletic groups, or school groups? No 01/19/2025 How often do you attend meet ings of the clubs or organizations you belong to? Never 01/19/2025 Are you , , di vorced, , never , or living with a partner? 01/19/2025 AUDIT-C Answer Date Recorded Q1: How often do you have a drink containing alc ohol? 2-4 times a month 01/23/2025 Q2: How many drinks containi ng alcohol do you have on a typical day when you are drinking? 1 or 2 01/23/2025 Q3: How often do you have si x or more drinks on one occasion? Never 01/23/2025 Overall Financial Resource Strain (CARDIA) Answe r Date Recorded How hard is it for you to pa y for the very basics like food, housing, medical care, and heating? Not hard at all 01/19/2025 Hunger Vital Sign Answer Date Recorded Within the past 12 months, y ou worried that your food would run out before you got the money to buy more. Never true 01/20/20 25 Within the past 12 months, t he food you bought just didn't last and you didn't have money to get more. Never true 01/19/2025 PRAPARE - Transportation Answer Date Re corded In the past 12 months, has l ack of transportation kept you from medical appointments or from getting medications? No 12/27 In the past 12 months, has l ack of transportation kept you from meetings, work, or from getting things needed for daily living? No 01/19/2025 Housing Stability Vital Sign Answer Eros e Recorded In the last 12 months, was t here a time when you were not able to pay the mortgage or rent on time? No 01/19/2025 In the past 12 months, how m any times have you moved where you were living? 0 01/19/2025 At any time in the past 12 m [facility], were you homeless or living in a residential (including now)? No 01/19/2025 Personal Safety Answer Date Recorded Have you ever been in or are you currently in a harmful physical or emotional relationship or is someone making you feel afraid or unsafe? 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 Gender Identity Not on file Sexual Orientation Not on file Obstetrics History Last Filed Vital Signs Vital Sign Reading Time Taken Comments Blood Pressure 124/70 02/11/2025 8:51 AM CDT Pulse 63 02/11/2025 8:51 AM CDT Temperature 36.4 C (97.6 F) 02/11/2025 8:51 AM CDT Respiratory Rate 20 02/11/2025 8:51 AM CDT Oxygen Saturation 99% 02/11/2025 8:51 AM CDT Inhaled Oxygen Concentration - - Weight 104.8 kg (231 lb) 02/07/2025 9:38 AM CDT Height 185.4 cm (6' 1) 02/07/2025 9:38 AM CDT Body Mass Index 30.48 02/07/2025 9:38 AM CDT Plan of Treatment Health Maintenance Due Date Last Done Comments Albumin Creatinine Ratio, Urine 1958 Colon Cancer Screening-Colonoscopy 1958 Depression Screening 1958 Hepatitis C Screening 1958 Prostate Cancer Screening-PSA 1958 Dilated Eye Exam 1958 Foot Exam 1958 Hepatitis B Screening 1976 Pneumococcal vaccine 65+ (1 of 2 - PCV) 1977 Well Visit 65+ 2023 Lipid Panel 07/11/2024 07/11/2023, 06/27, 03/12/2020, Additional history exists Covid-19 Vaccine (3 - 2024-2 6 season) 2025 03/08/2021, 02/08/2021 Influenza Vaccine (#1) 2025 08/15/2024, 2022 Hemoglobin A1C 07/24/2025 01/22/2025, 11/23/2014 Lung Cancer Screening 12/23/2025 12/22/2024, 024 Fall Risk Assessment 01/31/2026 01/31/2025 eGFR 02/03/2026 02/03/2025, 05/03/2025, 01/30/2025, Additional history exists DTaP/Tdap/Td Vaccine (2 - Td or Tdap) 02/04/2033 02/04/2023 Zoster Vaccine Completed 11/23/2023, 09/14/2023 Abdominal Aortic Aneurysm (A AA) Screen Completed 05/11/2025, 01/18/2025 Medical Devices Implanted Type Area Scratch Brusher Device Identifier Shelf Expiration Date Model / Serial / Lot [employer] Vascular System Closure Repair Femoral Artery Suture Mediated Perclose Prostyle 67964-95 - Sn/A - [id number] Implanted:Qty: 1 on 01/23/2025 by Aleksander Power MD at [facility] Other - see comments Left: Femoral [employer] Vascular 10/27/2026 00352-74 / N/A / [id number] [employer] Vascular System Closure Repair Femoral Artery Suture Mediated Perclose Prostyle 62468-43 - Sn/A - [id number] Implanted:Qty: 1 on 01/23/2025 by Aleksander Power MD at [facility] Other - see comments Left: Femoral [employer] Vascular 10/27/2026 82417-27 / N/A / [id number] Procedures Procedure Name Priority Date/Time Associated Diagnosis Comments EGFR Routine 02/03/2025 9:30 AM CDT HEMOGLOBIN A1C Routine 01/22/2025 11:02 AM CDT CTA ABDOMINAL AORTA AND BILATERAL ILIOFEMORAL RUNOFF ED 01/18/2025 3:[address] CHEST WO CONTRAST F/U LUNG SCREEN PROTOCOL Schedule Routine, Read Routine (OP Routine) 12/22/2024 2:18 PM CDT Obstructive sleep apnea Periodic limb movement Nocturnal hypoxemia Psychophysiologic al insomnia Cigarette nicotine dependence in remission Esophageal thickening Multiple pulmonary nodules LIPID PANEL Routine 03/12/2020 9:20 AM CDT from Last 3 Months or Most Recently Relevant to Health Maintenance Results * eGFR (02/03/2025 9:30 AM CDT) eGFR 70 >=60 mL/min/1. 73 m2 Comment: Interpretive Data Reference Interval Normal >/= 90 mL/min/1.73m2 Mildly decreased* 60 - 89 mL/min/1.73m2 Mildly to moderately decreased 45 - 59 mL/min/1.73m2 Moderately to severely decreased 30 - 44 mL/min/1.73m2 Severely decreased 15 - 29 mL/min/1.73m2 Kidney Failure < 15 mL/min/1.73m2 *Relative to young adult level Estimated glomerular filtration rate is determined by the 2020 CKD-EPI equation recommended by the National Kidney Foundation (A Unifying Approach to GFR Estimation: Recommendations of the NKF-ASK Task Force on Reassessing the Inclusion of Race in Diagnosing Kidney Disease, JASN 2020). The CKD-EPI equation should not be used for patients with unstable renal function and has not been validated in children and those over 70. Current interpretive data was last reviewed 2021. Blood 02/03/2025 9:30 AM CDT 02/03/2025 4:51 PM CDT Hitesh Schroeder MD LAB BLOOD ORDERABLES Final R esult Performing Organization Address City/[facility] Co de Phone Number [facility] [address] Department [place] [address] * (ABNORMAL) Hemoglobin A1c (01/22/2025 11:02 AM CDT) [facility] Hgb A1C 9.9(H) 4.0 - 5.6 % Estimated Average Glucose 237 mg/dL [facility] Comment: The ADA recommends reporting an estimated Average Glucose (eAG) with all Hemoglobin A1c results using the equation derived from a study of 507 normal and diabetic adults. Minority populations were underrepresented and children were not included. (Diabetes Care 31:8766-0652, 2008). The eAG is not equivalent to a fasting glucose. Blood 01/22/2025 11:0 2 AM CDT 01/22/2025 11:08 AM CDT Hitesh Schroeder MD LAB BLOOD ORDERABLES Final R esult [facility] [address] Department [place] [address] * CT Chest WO Contrast F/U Lung Screen Protocol (12/22/2024 2:18 PM CDT) Anatomical Region Laterality Modality Chest N/A Computed Tomogra phy 12/28/2024 3:13 PM CDT Narrative 12/28/2024 3:23 PM CDT EXAM DESCRIPTION: CT CHEST WO CONTRAST F/U LUNG SCREEN PROTOCOL REASON FOR STUDY: Screening CT of the chest in a former smoker with a 45 pack year smoking history. Additional history: None. TECHNIQUE: Low dose CT scan of the [...] DOSE: CT dose index volume (CTDIvol) = 2.79 mGy COMPARISON: 07/17/2024. FINDINGS: SMOKING RELATED LUNG DISEASE: Severe emphysema is noted. Mild bronchial wall thickening is noted. LUNG NODULES: There is a left lower lobe pulmonary nodule 0.7 x 0.4 cm (image 238) which is unchanged. There has a small nodule along the lateral aspect left major fissure 0.5 cm (image 257). Some of the posterior right upper lobe nodules have resolved. Some of the previous areas of ground-glass opacity in the right lung have resolved. CORONARY ARTERY CALCIFICATION: Dense still[place]amish coronary artery calcification. OTHER: Curvilinear scarring in the right apex. There is right basilar scarring. There is mild cylindrical bronchiectasis. There is no pleural or pericardial effusion. Status post median sternotomy. CABG noted. No thoracic lymphadenopathy. In the included upper abdomen, no significant abnormalities are seen. Bone windows demonstrate no acute or aggressive osseous abnormality. IMPRESSION: Unchanged left lower lobe pulmonary nodule 0.7 x 0.4 cm. Severe emphysema. Status post median sternotomy and CABG. Lung-RADS category 2: Benign appearance or behavior. Recommendation: Low dose Screening CT of chest in 12 months. THIS IS AN ELECTRONICALLY VERIFIED FINAL REPORT 12/28/2024 3:23 PM - Electronically signed by Zane Novoa M.D. T: Report ID: [id number] Reading Location: [place] [address] Procedure Note Zane Novoa Jr., MD - 12/28/2024 EXAM DESCRIPTION: CT CHEST WO CONTRAST F/U LUNG SCREEN PROTOCOL REASON FOR STUDY: Screening CT of the chest in a former smoker with a 45 pack year smoking history. Additional history: None. TECHNIQUE: Low dose CT scan of the [...] DOSE: CT dose index volume (CTDIvol) = 2.79 mGy COMPARISON: 07/17/2024. FINDINGS: SMOKING RELATED LUNG DISEASE: Severe emphysema is noted.Mild bronchial wall thickening is noted. LUNG NODULES: There is a left lower lobe pulmonary nodule 0.7 x 0.4 cm(image 238) which is unchanged. There has a small nodule along the lateral aspect left major fissure 0.5 cm (image 257). Some of the posterior right upperlobe nodules have resolved. Some of the previous areas of ground-glass opacity in the right lung have resolved. CORONARY ARTERY CALCIFICATION: Dense [place]amish coronary arterycalcification. OTHER: Curvilinear scarring in the right apex. There is right basilar scarring. There is mild cylindrical bronchiectasis. There is no pleural or pericardial effusion. Status post median sternotomy. CABG noted. No thoracic lymphadenopathy. In the included upper abdomen, no significant abnormalities are seen. Bone windows demonstrate no acute or aggressive osseous abnormality. IMPRESSION: Unchanged left lower lobe pulmonary nodule 0.7 x 0.4 cm. Severe emphysema. Status post median sternotomy and CABG. Lung-RADS category 2: Benign appearance or behavior. Recommendation: Low dose Screening CT of chest in 12 months. THIS IS AN ELECTRONICALLY VERIFIED FINAL REPORT 12/28/2024 3:23 PM - Electronically signed by Zane Novoa M.D. T: Report ID: [id number] Reading Location: [place] [address] Jose Francisco Mercer MD IM CT PROCEDURES Final Res ult * (ABNORMAL) Lipid panel (03/12/2020 9:20 AM CDT) Cholesterol 106 100 - 199 mg/dL [facility] - 01 Triglycerides 229(H) 0 - 149 mg/dL [facility] - 01 HDL Cholesterol 34(L) >39 mg/dL [facility] - 01 VLDL 46(H) 5 - 40 mg/dL [facility] - 01 LDL, calculated 26 0 - 99 mg/dL [facility] - 01 03/12/2020 9:20 AM CDT 03/12/2020 Narrative [facility] - 03/13/2020 8:09 AM CDT Performed at: - [facility] [address] [id number] Account Development Executive: Ammon Bustos PhD, Phone: [phone] us Eric Dong MD LAB BLOOD ORDERABLES Final R esult [facility] - 01 from Last 3 Months or Most Recently Relevant to Health Maintenance Insurance [facility] MEDICARE ADVANTAGE [facility] MED[facility]ARE ADVANTAGE [employer] MEDICARE ADVANTAGE Advance Directives For more information, please contact: [phone] Documents on File Type Date Recorded 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
--- OUTSIDE RECORDS SUMMARY | 2025-06-05 09:55 | XMS_ITS | Encounter Summary ---
Author Organization [facility] Facility Care Team Providers Care Floor Covering Installer Name Role Phone Godfrey Abrams MD Primary Care Provider [phone] Kyle Davey MD Unavailable [phone] Encounter Details Date Type Department Care Team (Latest Contact Info) Description 03/25/2016 Orders Only [facility] ProviderMaria De Jesus MD [address] [place] [address] Social History Tobacco Use Types Packs/Day Years Used Date Smoking Tobacco: Never Assessed Sex and Gender Information Value Date Recorded Sex Assigned at Not on file 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
--- OUTSIDE RECORDS SUMMARY | 2025-06-05 09:55 | XMS_ITS | Encounter Summary ---
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
--- OUTSIDE RECORDS SUMMARY | 2025-06-05 09:55 | XMS_ITS | Encounter Summary ---
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 us Historical Provider Final Res ult documented in this encounter Visit Diagnoses Not on filedocumented in this encounter Care Teams Sidewalk Repairer Relationship Specialty Start Date End Date Godfrey Abrams MD PCP - General Internal Medicine 06/15/18 Kyle Davey MD [address] [facility] [address] [facility] [place] [address] Consulting Physician Vascular Surgery 01/31/25 documented as of this encounter
--- OUTSIDE RECORDS SUMMARY | 2025-06-05 09:55 | XMS_ITS | Encounter Summary ---
Author Organization [facility] Address [address] [facility] [address] [place] [address] Care Team Providers Care Repair Armature Winder Helper Name Role Phone Godfrey Abrams MD Primary Care Provider [phone] Kyle Davey MD Unavailable Encounter Details Date Type Department Care Team (Late st Contact Info) Description 01/23/2015 Orders Only [facility] Health Information Management [address] [place] [address] Scanning, Provider Social History Tobacco Use Types Packs/Day Years Used Date Smoking Tobacco: Never Assessed Sex and Gender Information Value Date Recorded Sex Assigned at Not on file 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
--- OUTSIDE RECORDS SUMMARY | 2025-06-05 09:55 | XMS_ITS | Encounter Summary ---
Author Organization [facility] Facility Care Team Providers Care Liquid Fertilizer Servicer Name Role Phone Godfrey Abrams MD Primary Care Provider [phone] Kyle Davey MD Unavailable [phone] Encounter Details Date Type Department Care Team (Latest Contact Info) Description 03/20/2016 Orders Only [facility] ProviderMaria De Jesus MD [address] [place] [address] Social History Tobacco Use Types Packs/Day Years Used Date Smoking Tobacco: Never Assessed Sex and Gender Information Value Date Recorded Sex Assigned at Not on file Legal Sex Male 10:16 AM COAL WASHER TENDER Gender Identity Not on file Sexual Orientation [...] on filedocumented in this encounter Care Teams Liquid Fertilizer Servicer Relationship Specialty Start Date End Date Godfrey Abrams MD PCP - General Internal Medicine 06/15/18 Kyle Davey MD [facility] [address] [place] [address] Consulting Physician Vascular Surgery 01/31/25 documented as of this encounter
--- OUTSIDE RECORDS SUMMARY | 2025-06-05 09:55 | XMS_ITS | Encounter Summary ---
Author Organization [facility] Facility Care Team Providers Care Health Insurance Adjuster Name Role Phone Godfrey Abrams MD Primary Care Provider [phone] Kyle Davey MD Unavailable [phone] Encounter Details Date Type Department Care Team (Latest Contact Info) Description 01/18/2018 Orders Only [facility] ProviderMaria De Jesus MD [address] [place] [address] Social History Tobacco Use Types Packs/Day Years Used Date Smoking Tobacco: Never Assessed Sex and Gender Information Value Date Recorded Sex Assigned at Not on file Legal Sex Male 10:16 AM EMS DRIVER Gender Identity Not on file Sexual Orientation [...] on filedocumented in this encounter Care Teams Health Insurance Adjuster Relationship Specialty Start Date End Date Godfrey Abrams MD PCP - General Internal Medicine 06/15/18 Kyle Davey MD [address] [facility] [address] [facility] [place] [address] Consulting Physician Vascular Surgery 01/31/25 documented as of this encounter
== END 2025-06-05 08:59 | disposition home or self-care (01) ==
LOC: ANHSURGERY 09:09
PROVIDERS: Anesthesiology; PCP Internal Medicine; Visit Provider Urology
DX: E11.22 Type 2 diabetes mellitus with diabetic chronic kidney disease (principal); N18.9 Chronic kidney disease, unspecified; Z15.89 Genetic susceptibility to other disease; Z79.01 Long term (current) use of anticoagulants
CPT/HCPCS: 36415; 80048; 85610; 85730

== ENCOUNTER 2025-06-14 00:49 | Day surgery (SDC) | payer MEDICARE, SELFPAY ==
[2025-06-01 13:36] VITALS: BMI 29.6
--- NOTE | 2025-06-01 13:55 | PC.NURSE ---
Report to the Outpatient Waiting Room, entrance under the green pavilion located off [facility], at time __1045am on date _06/14/25 . Planned Procedure Time: _1245pm .? Time changes happen often and if your time is changed the preop area will call you the afternoon before. - You and your visitor will be asked to self-screen and do not enter if you have any COVID symptoms. Please call surgeon if you need to reschedule. - A mask is optional within the hospital at this time. Patients may have clear liquids (water, carbonated beverages, clear teas, apple juice) until 3 hours prior to surgery with a maximum of 20 ounces. - No food from midnight until time of surgery and no smoking, or chewing tobacco (or any form of nicotine). No chewing gum, candy or mints. (0945am) Take only the following medications with a SIP of water on the morning of surgery: __Metoprolol DO NOT STOP ANY OF YOUR OTHER PRESCRIPTION MEDICATIONS PRIOR TO SURGERY EXCEPT THE FOLLOWING Hold all vitamins and supplements for 3 days per anesthesiologist. Medications to discontinue per physician HOLD ASPIRIN and COUMADIN for [address] Rhoades- Enoxaparin in the interim/[place] and Coumadin clinic instructions Date to take last dose 06/06/25 Please no make-up, nail bolivian, hairspray, perfume, deodorant, or body powder the day of surgery.? No jewelry (including any body piercings) or valuables the day of surgery, leave them at home.? Please take a shower or bath the night before, or the morning of, surgery with an antibacterial soap.? Wear comfortable, loose fitting clothing.? Children are encouraged to wear pajamas. - Jewelry must be removed prior to entering the operating room.? Rings and piercings that are not removed may be cut off. - The hospital will not accept responsibility for valuables.? - Please leave all valuables, including medications, at home the day of surgery. If you are going home after surgery, a licensed driver material handler must drive you home.? - NO public transportation without another adult if you receive anesthesia. - We recommend that an adult stay with you for 24 hours following discharge. - We also recommend that you do not drive, make important decision, drink alcoholic beverages, or take any drugs that were not prescribed by your health care provider for at least 24 hours after your discharge time. Follow any additional instructions given to you from your surgeon. Telephone instructions given to ____Patient and asked if any additional questions and then verbalized understanding. Patient advised to call surgeon office or pre surgery nurse liaison [phone] if any additional questions.
[2025-06-14] VITALS (13 sets, daily range): BP systolic 115–179; BP diastolic 55–87; PULSE 50–70; RESP 10–20; TEMP 36.3; O2SAT 98–100; BMI 29.1
--- NOTE | ~2025-06-14 | XR_ITS ---
EXAMINATION: XR retrograde pyelogram LT DATE: 06/14/2025 12:38 INDICATION: Left retrograde pyelogram TECHNIQUE: 105 fluoroscopic images of the abdomen and pelvis were obtained during procedure performed by Dr. Rhoades. Radiologist was not present for the imaging or procedure. The amount of fluoroscopy time used during this procedure was 1.1 minutes. Total DAP was 1.45 mGym^2. COMPARISON: None. FINDINGS: Retrograde contrast desiccation of the left ureter and renal collecting system demonstrate mild proximal left hydroureteronephrosis with multiple rounded and ovoid filling defects within the dilated proximal left ureter with smooth margins and small amount of motion favoring multiple renal stones over clot or neoplasm. There are smooth because margins to the ureter at the transition to normal caliber at the junction of the proximal to mid left ureter. IMPRESSION: 1. Multiple renal stones in the proximal left ureter with likely secondary mild left hydroureteronephrosis. See procedure note for further detail. Reviewed, dictated and finalized at location A.
--- OUTSIDE RECORDS SUMMARY | 2025-06-14 00:52 | XMS_ITS | Encounter Summary ---
Author Organization [facility] Address [address] [place] [address] Care Team Providers Care Pot Builder Name Role Phone Gdofrey Abrams MD Primary Care Provider [phone] Encounter Details Date Type Department Care Team (Latest Contact Info) Description 06/12/2025 Results Follow-Up [facility] Medical Group Family & Internal Medicine [facility] [address] [place] [address] Alma Pham APNP [address] [place], [place] [id number] HEMOGLOBIN, GLYCOSYLATED Social History Tobacco Use Types Packs/Day Years Used Date Smoking Tobacco: Former Cigarettes Smokeless Tobacco: Former Comments:The provider will p rovide you with information on quiting smoking Alcohol Use Standard Drinks/Week Comments Yes 7 (1 standard drink = 0.6 oz pur e alcohol) 1-2 drink a night OASIS D0700: Social Isolation Answer Da te [...] How often do you attend chur or spiritism services? Never 02/04/2023 Do you belong to any clubs o r organizations such as mandaen groups, unions, fraternal or athletic groups, or [...] Date Recorded Patient Health Questionnaire-2 Score 0 01/09/2025 [facility] of Occupat ional Health - Occupational Stress [...] place to sleep or slept in a group home (including now)? No 07/11/2023 Sex and Gender [...] Care Team (Late st Contact Info) Description 06/29/2025 8:45 AM CDT Office Visit [facility] [address] Jessee Anderson MD [address] [facility] [address] [place] [phone] 10/01/2025 10:20 AM LIFTS AND CRANES INSPECTOR Office Visit [facility] Medical Group Family & Internal Medicine - [address] [address] Godfrey Abrams MD [address] [place] [address] documented as of this encounter Goals Goal [...] documented as of this encounter Care Teams Pot Builder Relationship Specialty Start Date End Date Godfrey Abrams MD [address] [place] [id number] PCP - General 09/18/14 documented as of this encounter
--- OUTSIDE RECORDS SUMMARY | 2025-06-14 00:52 | XMS_ITS | Encounter Summary ---
Author Organization [facility] Medical [facility] Address [address] [facility] [address] [place] [address] Care Team Providers Care Health And Safety Advisor Name Role Phone Godfrey Abrams MD Primary Care Provider [phone] Kyle Davey MD Unavailable [phone] Encounter Details Date Type Department Care Team (Late st Contact Info) Description 01/23/2015 Orders Only [facility] Health Information Management [address] [place] [address] Scanning, Provider Social History Tobacco Use Types Packs/Day Years Used Date Smoking Tobacco: Never Assessed Sex and Gender Information Value Date Recorded Sex Assigned at Not on file Legal Sex Male 10:16 AM BAND SPLITTER Gender Identity Not on file Sexual Orientation [...] filedocumented in this encounter Care Teams Health And Safety Advisor Relationship Specialty Start Date End Date Godfrey Abrams MD PCP - General Internal Medicine 06/15/18 Kyle Davey MD [address] [facility] [address] [address] Consulting Physician Vascular Surgery 01/31/25 documented as of this encounter
--- OUTSIDE RECORDS SUMMARY | 2025-06-14 00:52 | XMS_ITS | Encounter Summary ---
Author Organization [facility] Facility Care Team Providers Care Fish Header Name Role Phone Godfrey Abrams MD Primary Care Provider [phone] Kyle Davey MD Unavailable [phone] Encounter Details Date Type Department Care Team (Latest Contact Info) Description 03/20/2016 Orders Only [facility] ProviderMaria De Jesus MD [address] [place] [address] Social History Tobacco Use Types Packs/Day Years Used Date Smoking Tobacco: Never Assessed Sex and Gender Information Value Date Recorded Sex Assigned at Not on file Legal Sex Male 10:16 AM RADIOLOGY RECEPTIONIST Gender Identity Not on file Sexual Orientation [...] on filedocumented in this encounter Care Teams Fish Header Relationship Specialty Start Date End Date Godfrey Abrams MD PCP - General Internal Medicine 06/15/18 Kyle Davey MD [facility] [address] [place] [address] Consulting Physician Vascular Surgery 01/31/25 documented as of this encounter
--- OUTSIDE RECORDS SUMMARY | 2025-06-14 00:52 | XMS_ITS | Encounter Summary ---
Author Organization [facility] Address [address] [place] [address] Care Team Providers Care Salesperson Sewing Machines Name Role Phone Godfrey Abrams MD Primary Care Provider [phone] Reason for Visit * Reason Comments Lab (SCAN) Encounter Details Date Type Department Care Team (Latest Contact Info) Description 06/05/2025 Scan [facility] Scanned, Doc Med Group Lab (SCAN) Social History Tobacco Use Types Packs/Day Years [...] often do you attend chur ch or christianity services? Never 02/04/2023 Do you belong to any clubs o r organizations such as judaism groups, unions, fraternal or athletic groups, or [...] Recorded Patient Health Questionnaire-2 Score 0 01/09/2025 [facility] of Occupat ionhi Health - Occupational Stress Questionnaire Answer Date [...] place to sleep or slept in a long term (including now)? No 07/11/2023 Sex and Gender [...] Description 06/29/2025 8:45 AM CDT Office Visit [facility] [address] Jessee Anderson MD 3 [facility] [address] [facility] [place] [phone] 10/01/2025 10:20 AM TRUCK DRIVER INSTRUCTOR Office Visit [facility] Medical Group Family & Internal Medicine - [address] [address] Godfrey Abrams MD [address] [place] [phone] documented as of this encounter Goals Goal Patient Goal Type Associated Problems Recent Progress Patient-Stated? Author Family - family caregiver with be involved in care transitions and discharge planning Lifestyle No Tea Sepulveda RN documented as of this encounter Procedures Procedure Name Priority Date/Time Associated Diagnosis Comments OUTSIDE PT/INR (SCAN ORDER) 06/05/2025 documented in this encounter Results * OUTSIDE PT/INR (SCAN ORDER) (06/05/2025) 06/05/2025 us Doc Med Group Scanned SCANNING Final Resu lt documented in this encounter Visit Diagnoses Not on filedocumented in this encounter Additional Health Concerns Assessment Noted Time PHQ-9 Depression Total Score: 0 03/03/20 21 2:55 PM CDT documented as of this encounter Care Teams Salesperson Sewing Machines Relationship Specialty Start Date End Date Godfrey Abrams MD [address] [place] [address] PCP - General 09/18/14 documented as of this encounter
--- OUTSIDE RECORDS SUMMARY | 2025-06-14 00:52 | XMS_ITS | Encounter Summary ---
Author Organization [facility] Address [facility] [place] [address] Care Team Providers Care Seat Installer Name Role Phone Godfrey Abrams MD Primary Care Provider [phone] Encounter Details Date Type Department Care Team (Late st Contact Info) Description 06/04/2025 LIA Message Enc [facility], [address] [address] [facility] Provider warfarin/loveox instructions. Social History Tobacco Use Types Packs/Day Years [...] How often do you attend chur or church services? Never 02/04/2023 Do you belong to any clubs o r organizations such as congregational groups, unions, fraternal or athletic groups, or [...] when you are drinking? 3 or 4 3 Q3: How often do you have si x or more drinks on one occasion? Monthly 02/04/2023 Overall Financial Resource Strain (CARDIA) Answe r Date Recorded How hard is it for you to pa y for the very basics like food, housing, medical care, and heating? Not hard at all 07/11/2023 PHQ-2 Answer Date Recorded Patient Health Questionnaire-2 Score 0 01/09/2025 [facility] of Occupat ional Health - Occupational Stress [...] Description 06/29/2025 8:45 AM CDT Office Visit [facility]-[address] [address] Jessee Anderson MD [address] [place] [address] [place] [phone] 10/01/2025 10:20 AM CONSUMER LENDING MANAGER Office Visit [facility] Medical Group Family & Internal Medicine - [address] [address] Godfrey Abrams MD [address] [place] [address] documented as of this encounter Goals Goal [...] documented as of this encounter Care Teams Seat Installer Relationship Specialty Start Date End Date Godfrey Abrams MD [address] [place] [address] PCP - General 12/23/14 documented as of this encounter
--- OUTSIDE RECORDS SUMMARY | 2025-06-14 00:52 | XMS_ITS | Encounter Summary ---
Author Organization [facility] Address [address] [place] [address] Care Team Providers Care Welcome Wagon Host/Hostess Name Role Phone Godfrey Abrams MD Primary Care Provider [phone] Encounter Details Date Type Department Care Team (Latest Contact Info) Description 06/12/2025 Results Follow-Up [facility] [address] Consuelo Miles RN COMPREHENSIVE METABOLIC PANEL, LIPID PANEL Social History Tobacco Use Types Packs/Day Years [...] How often do you attend chur or mu-ism services? Never 02/04/2023 Do you belong to any clubs o r organizations such as anabaptist groups, unions, fraternal or athletic groups, or [...] Recorded Patient Health Questionnaire-2 Score 0 01/09/2025 [facility] of Occupat ional Health - Occupational Stress [...] Description 06/29/2025 8:45 AM CDT Office Visit [facility] [facility] [address] Jessee Anderson MD [address] [facility] [address] [place] [phone] 10/01/2025 10:20 AM MANAGER BILLING Office Visit [facility] Medical Group Family & Internal Medicine - [address] [address] Godfrey Abrams MD [address] [place] [address] documented as of this encounter Goals Goal [...] documented as of this encounter Care Teams Welcome Wagon Host/Hostess Relationship Specialty Start Date End Date Godfrey Abrams MD [address] [place] [address] PCP - General 09/18/14 documented as of this encounter
--- OUTSIDE RECORDS SUMMARY | 2025-06-14 00:52 | XMS_ITS | Encounter Summary ---
Author Organization [facility] Facility Care Team Providers Care Digital Marketing Executive Name Role Phone Godfrey Abrams MD Primary Care Provider [phone] Kyle Davey MD Unavailable [phone] Encounter Details Date Type Department Care Team (Latest Contact Info) Description 01/18/2018 Orders Only [facility] ProviderMaria De Jesus MD [address] [place] [address] Social History Tobacco Use Types Packs/Day Years Used Date Smoking Tobacco: Never Assessed Sex and Gender Information Value Date Recorded Sex Assigned at Not on file Legal Sex Male 10:16 AM PATIENT SERVICES CLERK Gender Identity Not on file Sexual Orientation [...] on filedocumented in this encounter Care Teams Digital Marketing Executive Relationship Specialty Start Date End Date Godfrey Abrams MD PCP - General Internal Medicine 06/15/18 Kyle Davey MD [address] [facility] [facility] [address] [facility] [place] [address] Consulting Physician Vascular Surgery 01/31/25 documented as of this encounter
--- OUTSIDE RECORDS SUMMARY | 2025-06-14 00:52 | XMS_ITS | Encounter Summary ---
Author Organization [facility] Address [address] [place] [address] Care Team Providers Care Product Test Specialist Name Role Phone Godfrey Abrams MD Primary Care Provider [phone] Encounter Details Date Type Department Care Team (Late st Contact Info) Description 09/22/2023 BostInno Message Enc [facility] Medical Group Family & Internal Medicine [address] [address] S[place]is, [facility] Provider Dilated Diabetic Eye Exam Social [...] How often do you attend chur or hinduism services? Never 02/04/2023 Do you belong to any clubs o r organizations such as alevism groups, unions, fraternal or athletic groups, or [...] Recorded Patient Health Questionnaire-2 Score 0 11/19/2022 [facility] [place] of Occupat ional Health - Occupational Stress [...] place to sleep or slept in a chcf (including now)? No 07/11/2023 Sex and Gender [...] Date Type Department Care Team (Late st [facility] Info) Description 06/29/2025 8:45 AM CDT Office Visit [facility]-[address] [address] Jessee Anderson MD [address] [facility] [address] [place] [phone] 10/01/2025 10:20 AM FINISH MOLDER Office Visit [facility] Medical Group Family & Internal Medicine - [address] [phone] Godfrey Abrams MD [address] [place] [address] documented as of this encounter Goals Goal [...] documented as of this encounter Care Teams Product Test Specialist Relationship Specialty Start Date End Date Godfrey Abrams MD [address] [place] [address] PCP - General 09/18/14 documented as of this encounter
--- OUTSIDE RECORDS SUMMARY | 2025-06-14 00:52 | XMS_ITS | Encounter Summary ---
Author Organization [facility] Facility Care Team Providers Care Train Station Server Name Role Phone Godfrey Abrams MD Primary Care Provider [phone] Kyle Davey MD Unavailable [phone] Encounter Details Date Type Department Care Team (Latest Contact Info) Description 01/06/2017 Orders Only [facility] ProviderMaria De Jesus MD [address] [place] [address] Social History Tobacco Use Types Packs/Day Years Used Date Smoking Tobacco: Never Assessed Sex and Gender Information Value Date Recorded Sex Assigned at Not on file Legal Sex Male 10:16 AM BABYSITTER Gender Identity Not on file Sexual Orientation [...] on filedocumented in this encounter Care Teams Train Station Server Relationship Specialty Start Date End Date Godfrey Abrams MD PCP - General Internal Medicine 06/15/18 Kyle Davey MD [address] [facility] [address] [place] [address] Consulting Physician Vascular Surgery 01/31/25 documented as of this encounter
--- OUTSIDE RECORDS SUMMARY | 2025-06-14 00:52 | XMS_ITS | Encounter Summary ---
Author Organization [facility] Address [facility] [place] [address] Care Team Providers Care Senior Director Marketing Name Role Phone Godfrey Abrams MD Primary Care Provider [phone] Encounter Details Date Type Department Care Team (Late st Contact Info) Description 12/06/2024 navabi Message Enc [facility] [address] [address] [facility] Provider warfarin/lovenox instructions Social History Tobacco Use [...] How often do you attend chur or cheondoism services? Never 02/04/2023 Do you belong to any clubs o r organizations such as orthodoxy groups, unions, fraternal or athletic groups, or [...] Recorded Patient Health Questionnaire-2 Score 0 11/23/2023 [facility] of Occupat ional Health - Occupational [...] place to sleep or slept in a alf (including now)? No 07/11/2023 Sex and Gender [...] Description 06/29/2025 8:45 AM CDT Office Visit [facility]-[address] [phone] Jessee Anderson MD [address] [place] [address] [place] [phone] 10/01/2025 10:20 AM TYPEWRITER ASSEMBLY AND PARTS INSPECTOR Office Visit [facility] Medical Group Family & Internal Medicine - [address] [address] Godfrey Abrams MD [address] [place] [address] documented as of this encounter Goals Goal [...] documented as of this encounter Care Teams Senior Director Marketing Relationship Specialty Start Date End Date Godfrey Abrams MD [address] [place] [address] PCP - General 09/18/14 documented as of this encounter
--- OUTSIDE RECORDS SUMMARY | 2025-06-14 00:52 | XMS_ITS | Encounter Summary ---
Author Organization [facility] Address [address] [place] [address] Care Team Providers Care Health Coach Name Role Phone Godfrey Abrams MD Primary Care Provider [phone] Encounter Details Date Type Department Care Team (Late st Contact Info) Description 07/21/2023 HihoCoder Message Enc [facility] Medical Group Family & Internal Medicine [address] [address] [place]is, [facility] Provider Diabetic eye exam Social History Tobacco [...] often do you attend chur ch or samaritan services? Never 02/04/2023 Do you belong to any clubs o r organizations such as denominational groups, unions, fraternal or athletic groups, or [...] Recorded Patient Health Questionnaire-2 Score 0 11/19/2022 [facility] of Occupat ional Health - Occupational [...] Description 06/29/2025 8:45 AM CDT Office Visit [facility]-[address] [address] Jessee Anderson MD 3 [facility] [address] [place] [phone] 10/01/2025 10:20 AM CARE TRANSITION MANAGER Office Visit [facility] Medical Group Family & Internal Medicine - [address] [phone] Godfrey Abrams MD [address] [place] [address] documented as of this encounter Goals Goal [...] documented as of this encounter Care Teams Health Coach Relationship Specialty Start Date End Date Godfrey Abrams MD [address] [place] [address] PCP - General 09/18/14 documented as of this encounter
--- OUTSIDE RECORDS SUMMARY | 2025-06-14 00:52 | XMS_ITS | Clinical Summary ---
Author Organization [facility] Address [address] [place] [address] Care Team Providers Care Soils Engineer Name Role Phone Godfrey Carvajal MD Primary Care Provider [phone] Allergies No known active allergies Medications cholecalciferol 125 MCG (5000 UT) TabIndications: Vitamin D Deficiency Take 1 tablet (125 mcg total) by mouth daily. Indications: Vitamin D Deficiency 06/15/20 17 Active B Aecsxas-O-Iyukw Acid (SM B SUPER VITAMIN COMPLEX OR)Indications: Nutritional Support Take 1 tablet by mouth daily. Indications: Nutritional Support Active polycarbophil (FIBER) 625 MG tablet 1 tablet (625 mg total) 3 (three) times daily. Active warfarin (COUMADIN) 1 MG tabletIndicatio ns:Acute embolism and thrombosis of deep vein of lower extremity, unspecified laterality (CMS/HCC HHS/HCC) TAKE 1& 1/2 TABLETS (1.5MG) BY MOUTH ONCE DAILY DIRECTED 45 tablet 01/03/20 24 Active Additional Information Patient not taking.Reported on 06/11/2025 warfarin (COUMADIN) 5 MG tabletIndicatio ns:Acute embolism and thrombosis of deep vein of lower extremity, unspecified laterality (CMS/HCC HHS/HCC) TAKE 1 TABLET (5 MG TOTAL) BY MOUTH DAILY. 90 tablet 10/06/19 25 Active Additional Information Patient not taking.Reported on 06/11/2025 spironolactone (ALDACTONE) 25 MG tabletIndicatio ns:Benign essential hypertension TAKE ONE TABLET BY MOUTH DAILY 30 tablet 11/29/19 25 Active gabapentin (NEURONTIN) 600 MG tabletIndicatio ns:Polyneuropat hy associated with underlying disease (HHS/HCC) TAKE ONE TABLET BY MOUTH EVERY DAY WITH LUNCH DIRECTED 90 tablet 1 12/22/19 25 Active allopurinol (ZYLOPRIM) 300 MG tabletIndicatio ns:Chronic gout without tophus, unspecified cause, unspecified site TAKE ONE TABLET (300 MG TOTAL) BY MOUTH DAILY. 90 tablet 01/19/20 25 Active folic acid (FOLVITE) 1 MG tabletIndicatio ns:Other iron deficiency anemia TAKE ONE TABLET BY MOUTH DAILY 90 tablet 3 03/06/20 25 Active pantoprazole EC (PROTONIX) 40 MG tabletIndicatio ns:Gastroesopha geal reflux disease without esophagitis TAKE ONE TABLET BY MOUTH DAILY 90 tablet 3 03/06/20 25 Active metoprolol succinate ER (TOPROL-XL) 50 MG 24 hr tabletIndicatio ns:NSTEMI (non-ST elevated myocardial infarction) ([facility]/HCC HHS/HCC),Atrial flutter, unspecified type ([facility] HHS/HCC) TAKE ONE AND A 1/2 TABLET BY MOUTH DAILY WITH FOOD 135 tablet 04/19/20 25 Active atorvastatin (LIPITOR) 40 MG tabletIndicatio ns:Hyperlipidem ia TAKE ONE TABLET BY MOUTH DAILY 90 tablet 05/03/20 25 Active sacubitril-vals patricia (ENTRESTO) 24-26 MG tablet TAKE ONE TABLET BY MOUTH TWICE A DAY 180 tablet 05/03/20 25 Active Continuous Glucose Sensor (FREESTYLE ALYSSA 3 SENSOR) MiscIndications :Type 2 diabetes mellitus with diabetic peripheral angiopathy without gangrene, without long-term current use of insulin (CMS/HCC HHS/HCC) PLACE ONTO SKIN ONCE EVERY 14 DAYS DIRECTED 6 each 05/07/20 25 Active enoxaparin (LOVENOX) 100 mg/mL syringe Inject 1 ml (100 mg) subcutaneously at 7 am and 7 pm on 06/09/25, 06/10/25, 06/11/25, 06/12/25. 7 am only on 06/13/25. No dose on 06/14/25. Resume dose at 7 am and 7 pm on 06/15/25, 06/16/25, and 06/17/25. 15 mL 06/04/20 25 Active heparin lock flush 10 UNIT/ML injection 5 mLs (50 Units total). 02/01/20 25 025 Discontinu ed(Therapy completed) doxycycline hyclate (VIBRAMYCIN) 100 MG capsule Take 1 capsule (100 mg total) by mouth 2 (two) times daily. 04/17/20 25 025 Active Problems Problem Noted Date Diagnosed Date Amputation of right great toe 02/14/2025 Multiple pulmonary nodules 08/09/2024 Interstitial pulmonary disea se, unspecified ([facility]) 02/22/2024 Polyneuropathy associated with underlying diseas e ([facility]) 08/23/2023 Hx of CABG 07/27/2023 Acute on chronic combined sy stolic and diastolic congestive heart failure ([facility]) 07/27/2023 History of arterial embolism 03/12/2023 Psychophysiological insomnia 07/08/2022 Periodic limb movement 07/08/2022 Nocturnal hypoxemia 07/08/2022 Nonrheumatic aortic valve stenosis 02/27/2022 Coronary stent patent 12/26/2021 Syncope 12/25/2021 Methylenetetrahydrofolate reductase deficiency ( [facility]) 06/22/2018 Hematuria, unspecified type 01/06/2017 Acquired hypercoagulable state ([facility]) 016 Anemia 05/06/2016 Cardiomyopathy ([facility]) 03/25/2016 Overview (03/27/2020): Overview: Tachycardia induced now resolved with getting him out of atrial flutter in sinus rhythm with an ejection fraction of 55-60%. 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 Nicotine dependence 03/23/2016 Overview (11/19/2022): 5 cigarettes per day. Failed Chantix (bad dreams). Nicotine patches were not effective and caused headache. Vitamin D deficiency 05/08/2015 Atrial flutter ([facility]) 11/22/2014 Overview (03/27/2020): Overview: Persistent with rapid ventricular response with successful conversion to sinus rhythm on 11/18/2014 on warfarin anticoagulation. Remains in sinus rhythm, INRs Managed by Dr. Carvajal Peripheral neuropathy 07/24/2014 Obstructive sleep apnea 08/18/2013 Diabetes mellitus ([facility]) 11/22/2012 Acute embolism and thrombosi s of unspecified deep veins of unspecified lower extremity ([facility]) 05/23/2012 Benign essential hypertension 05/23/2012 Esophageal reflux 05/23/2012 Gout 05/23/2012 Hyperlipidemia 05/23/2012 Peripheral vascular disease 05/23/2012 Resolved Problems Problem Noted Date Diagnosed Date Resolved Date NSTEMI (non-ST elevated myoc ardial infarction) ([facility]) 07/09/2023 02/22/2024 CAD (coronary artery disease) 07/09/2023 02/22/2024 Cellulitis 02/04/2023 05/11/2023 Encounters Date Type Department Care Team Description 06/12/2025 Results Follow-Up [facility] Family & Internal Medicine - [address] [phone] Alma Pham APNP HEMOGLOBIN, GLYCOSYLATED 06/12/2025 Results Follow-Up [facility] [phone] Consuelo Miles RN COMPREHENSIVE METABOLIC PANEL, LIPID PANEL 06/11/2025 1:40 PM CDT Office Visit [facility] Family & Internal Medicine [address] [phone] Godfery Carvajal MD Follow Up; Hypertension; Diabetes; Hyperlipidemia; Obstructive Sleep Apnea ; Vitamin D Deficiency; Coronary Artery Disease; CHF; COPD; Finger (Pt c/o discoloration in fingers. ); Surgery (Pt is scheduled for kidney biopsy next week with Dr. Rhoades @ [facility]. ) 06/11/2025 1:00 PM CDT Laboratory Only [facility] Family & Internal Medicine [address] [phone] Godfrey Carvajal MD 06/11/2025 Travel 06/05/2025 Scan HEALTH INFO SRVCS Scanned, [facility] (SCAN) 06/05/2025 Telephone [facility], [address] [address] Jessee Anderson MD Information ([facility] Pre-Admit Anesthisia) 06/04/2025 [facility]las Message Enc [facility], [address] [address] Sarkis [facility] Provider warfarin/loveox instructions. 06/04/2025 Anti-Coag Telephone Call [facility], [address] [address] Miriam Grey RN Anticoagulation (Warfarin/Lovenox instructions. ) 06/04/2025 Anti-Coag Telephone Call [facility], [address] [address] Miriam Grey RN Anticoagulation (INR) 06/01/2025 Telephone [facility] THREE [address] [address] Jessee Anderson MD Surgical Clearance 06/01/2025 Anti-Coag Telephone Call [facility], [address] [address] Miriam Grey RN Anticoagulation (INR) 06/01/2025 Orders Only [facility] MAIN BUSINESS OFFICE [address] [place] [address] Neno Chavez MD 05/22/2025 Telephone [facility] Family & Internal Medicine [address] [address] Godfrey Carvajal MD Concerns 05/18/2025 Anti-Coag Telephone Call [place] [facility]- on THREE [facility], [facility] [address] [place] [address] Miriam Grey RN Anticoagulation (INR) 05/14/2025 Results Follow-Up [facility] Family [facility] Internal Medicine [place] [address] [place] [address] ABD+PEL WO CON, URINALYSIS AUTO DIP, URINALYSIS MICRO ONLY, Additional followed-up results: 3 05/11/2025 8:40 AM CDT - 05/11/2025 11:59 PM CDT Hospital Encounter [facility] CT [address] [place] [address] Godfrey Carvajal MD Discharge Disposition: Home or Self Care (Routine Discharge) 05/11/2025 Travel 05/10/2025 2:20 PM CDT Office Visit [facility] Family & Internal [place] [address] [place] [address] Godfrey Carvajal MD Hematuria (Pt c/o gross hematuria one episode in November and December. Pt was diagnosed with UTI in December. Most recently pt has been have episodes once every 7-10 days. Pt thinks he is also been passing clots. He has associated the episodes possibly with cutting grass. 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 ); Skin Problem (Pt c/o wounds on hands and LT side of face, he believes this is associated with glimepiride. Pt states cardiology is wondering if pt could be switched to Jardiance. ) 05/10/2025 - 05/10/2025 11:59 PM CDT Hospital Encounter [facility] [address] [place] [address] Godfrey Carvajal MD Discharge Disposition: Home or Self Care (Routine Discharge) 05/10/2025 Travel 05/08/2025 Telephone [facility] Family & Internal [address] [address] Godfrey Carvajal MD Advice 05/04/2025 Anti-Coag Telephone Call [facility], [place] [address] [place] [address] Hali Stephens RN Anticoagulation (protime) 04/20/2025 Anti-Coag Telephone Call [facility] on [facility], [address] [address] Miriam Grey RN Anticoagulation (INR) 04/20/2025 Orders Only [facility] MAIN BUSINESS OFFICE [address] [place] [address] Neno Chavez MD 04/12/2025 Scan nfon SRVCS Scanned, [facility] 04/06/2025 Anti-Coag Telephone Call [facility] on [facility], [address] [address] Hali Stephens RN Anticoagulation (protime) 03/23/2025 Anti-Coag Telephone Call [facility] on [facility], [address] [address] Miriam Grey RN Anticoagulation (INR) 03/16/2025 9:00 AM CDT Office Visit [facility] [address] Jessee Anderson MD Follow Up (6 months); CHF; Aortic Valve Stenosis; Atrial Flutter; Hypertension; Lipids 03/15/2025 1:40 PM CDT Office Visit [facility] Family [facility] Internal [address] [address] Godfrey Carvajal MD Diabetes (1 month f/u, no concerns) 03/15/2025 Travel from Last 3 Months Immunizations Immunization Administration Dates Next Due FLUAD (IIV, Trivalent, 0.5 M L Pre-filled Syringe) 08/15/2024 Fluzone 6 Months+ Quad (0.5 mL Prefilled Syringe) 07/26/2023,09/30/2021,06/27/2019 Influenza (Generic) 09/27/2017 MODERNA COVID-19 (12+) MRNA, LNP-S, PF, 100 MCG/ 0.5 ML DOSE 03/08/2021,02/08/2021 Pneumococcal (Prevnar 20) 01/09/2025 Shingrix 11/23/2023,09/14/2023 Tdap (Boostrix) 02/04/2023 Family History Medical History Relation Comments Prostate Cancer Brother 1 Cancer Father lung Cancer Mother Colon Relation Status Comments Brother 1 Alive Brother 2 Alive Father (Age 74) Mother (Age 74) Sister Alive Social History Tobacco Use Types Packs/Day Years Used Date Smoking Tobacco: Former Cigarettes Smokeless Tobacco: Former Tobacco Cessation:Counseling Given: Yes Comments:The provider will provide you with information [...] How often do you attend chur or mormon services? Never 02/04/2023 Do you belong to any clubs o r organizations such as anglican groups, unions, fraternal or athletic groups, or [...] Recorded Patient Health Questionnaire-2 Score 0 01/09/2025 [facility] - Occupational [...] place to sleep or slept in a nursing home (including now)? No 07/11/2023 Sex and Gender Information Value Date Recorded Sex Assigned at Male 12/13/2018 8:47 AM CDT Legal Sex Male 7:24 PM CDT Gender Identity Male 12/13/2018 8:47 AM CDT Sexual Orientation Straight 12/13/2018 8: 47 AM CDT Last Filed Vital Signs Vital Sign Reading Time Taken Comments Blood Pressure 106/64 06/11/2025 1:46 PM CDT Pulse 67 06/11/2025 1:46 PM CDT Temperature 36.9 C (98.4 F) 06/11/2025 1:46 PM CDT Respiratory Rate 18 06/11/2025 1:46 PM CDT Oxygen Saturation 97% 06/11/2025 1:46 PM CDT Inhaled Oxygen Concentration - - Weight 103.4 kg (227 lb 14.4 oz) 06/11/2025 1:46 PM CDT Height 185.4 cm (6' 1) 06/11/2025 1:46 PM CDT Body Mass Index 30.07 06/11/2025 1:46 PM CDT Plan of Treatment Upcoming Encounters Date Type Department Care Team (Late st Contact Info) Description 06/29/2025 8:45 AM CDT Office Visit [facility] [phone] Jessee Anderson MD [address] [phone] 10/01/2025 10:20 AM WEIGHER AND GRADER Office Visit [facility] Family & Internal Medicine - [address] [address] Godfrey Carvajal MD [address] [place] [address] Health Maintenance Due Date Last Done Comments Kidney Health Evaluation 1960 Hepatitis C 1976 RSV Immunization or 60+ Years (1 - Risk 60-74 years 1-dose series) 2018 Annual Medicare Wellness Visit 2023 COVID-19 Vaccine ( season) 2025 08/15/2024, 03/08/2021, 02/08/2021 Diabetes: Retinopathy Eye Exam 10/19/2025 10/19/2023, 10/09/2019 Hemoglobin A1C 12/09/2025 06/11/2025, 02/25, 01/22/2025, Additional history exists Lipid Panel 06/11/2026 06/11/2025, 06/27, 07/10/2023, Additional history exists DTaP, Tdap and Td Vaccines (2 - Td or Tdap) 02/04/2033 02/04/2023 Colorectal Cancer Screening Colonoscopy (10 Years) 12/19/2034 12/19/2024, 09/05/2015 Zoster Vaccines Completed 11/23/2023, 09/14/2023 PHQ-2 (Physician [place]) Completed 01/09/2025 Pneumococcal Vaccine: 50+ Years Completed 01/09/2025 AAA SCREENING Completed 05/11/2025, 12/27, 01/18/2025, Additional history exists Meningococcal B Vaccine Aged [...] Sepulveda, RN Medical Devices Implanted Type Area Junior Brand Manager Device Identifier Shelf Expiration Date Model / Serial / Lot Wire Sterum Suture Kit [employer] #7 09/28 Ccs-1 - [id number] Implanted:Qty: 1 on 07/12/2023 by Sarthak Zhao RNFA at [facility] Wire N/A: Sternum [employer] 04/27/2027 [id number] / / [id number] Description:2 Wires implante d Wire Sternotomy Suture Kit - [id number] Implanted:Qty: 1 on 07/12/2023 by Sarthak Zhao RNFA at [facility] N/A: Sternum [employer] 10/28/2027 [id number] / / [id number] Description:5 wires implante d Procedures Procedure Name Priority Date/Time Associated Diagnosis Comments COLLECT.CAPILLARY (FNGR,HEEL,EAR) Routine 06/11/2025 1:52 PM CDT Type 2 diabetes mellitus with diabetic peripheral angiopathy without gangrene, without long-term current use of insulin ([facility]) COLLECTION VENOUS BLOOD VENIPUNCTURE Routine 06/11/2025 1:25 PM CDT Coronary artery disease of tanacross artery of tanacross heart with stable angina pectoris Benign essential hypertension Atrial flutter, unspecified type ([facility]) LIPID PANEL Routine 06/11/2025 1:25 PM CDT Coronary artery disease of tanacross artery of tanacross heart with stable angina pectoris Benign essential hypertension Atrial flutter, unspecified type ([facility]) COMPREHENSIVE METABOLIC PANEL Routine 06/11/2025 1:25 PM CDT Coronary artery disease of tanacross artery of tanacross heart with stable angina pectoris Benign essential hypertension Atrial flutter, unspecified type ([facility]) HEMOGLOBIN, GLYCOSYLATED Routine 06/11/2025 Type 2 diabetes mellitus with diabetic peripheral angiopathy without gangrene, without long-term current use of insulin ([facility]/HCC [facility]) OUTSIDE PT/INR (SCAN ORDER) 06/05/2025 MD REVIEW,HOME INR TEST Routine 06/04/2025 2:15 PM CDT MD REVIEW,HOME INR TEST Routine 06/01/2025 1:36 PM CDT MD REVIEW,HOME INR TEST Routine 05/18/2025 1:[address] ABD+PEL WO CON JAXSON 05/11/2025 8:4 8 AM CDT Gross hematuria COLLECTION VENOUS BLOOD VENIPUNCTURE Routine 05/10/2025 4:19 PM CDT Gross hematuria URINE BACTERIA CULTURE Routine 4:18 PM CDT Gross hematuria CBC W/DIFF AUTOMATED Routine 05/10/2025 4:18 PM CDT Gross hematuria COMPREHENSIVE METABOLIC PANEL Routine 05/10/2025 4:18 PM CDT Gross hematuria URINALYSIS MICRO ONLY Routine 05/10/2025 4:18 PM CDT Gross hematuria URINALYSIS AUTO DIP Routine 05/10/2025 Gross hematuria MD REVIEW,HOME INR TEST Routine 05/04/2025 2:49 PM CDT MD REVIEW,HOME INR TEST Routine 04/20/2025 1:24 PM CDT MD REVIEW,HOME INR TEST Routine 04/06/2025 2:09 PM CDT MD REVIEW,HOME INR TEST Routine 03/23/2025 2:20 PM CDT COLLECT.CAPILLARY (FNGR,HEEL,EAR) Routine 03/15/2025 1:40 PM CDT Type 2 diabetes mellitus with diabetic peripheral angiopathy without gangrene, without long-term current use of insulin ([facility]) HEMOGLOBIN, GLYCOSYLATED Routine 03/15/2025 Type 2 diabetes mellitus with diabetic peripheral angiopathy without gangrene, without long-term current use of insulin ([facility]) COLONOSCOPY GENERIC (SCAN ORDER) 12/19/2024 DIABETIC RETINOPATHY EXAM (NEGATIVE)(SCAN ORDER) Routine 10/19/2023 from Last 3 Months or Most Recently Relevant to Health Maintenance Results * (ABNORMAL) COMPREHENSIVE METABOLIC PANEL (06/11/2025 1:25 PM CDT) Only the most recent of2 resultswithin the time period is included. SODIUM S/P/B 141 136 - 145 MMOL/L 06/12/2025 11:17 AM CDT [facility] POTASSIUM S/P/B 4.5 3.5 - 5.1 MMOL/L 06/12/2025 11:17 AM CDT [facility] CHLORIDE S/P/B 104 98 - 107 MMOL/L 06/12/2025 11:17 AM CDT [facility] CO2 26.4 21 - 32 MMOL/L 06/12/2025 11:17 AM CDT [facility] GLUCOSE 100(H) 70 - 99 MG/DL 06/12/2025 11:17 AM CDT [facility] BUN 20(H) 7 - 18 MG/DL 06/12/2025 11:17 AM CDT [facility] CREATININE S/P/B 1.38(H) 0.70 - 1.30 MG/DL 06/12/2025 11:17 AM CDT [facility] CALCIUM S/P/B 9.3 8.4 - 10.5 MG/DL 06/12/2025 11:17 AM CDT [facility] BILIRUBIN TOTAL S/P/B 0.8 0.2 - 1.0 MG/DL 06/12/2025 11:17 AM [facility] [place] ALKALINE PHOSPHATASE S/P/B 49 45 - 115 U/L 06/12/2025 11:17 AM [facility] [place] AST 20 15 - 37 U/L 06/12/2025 11:17 AM [facility] ALT 26 16 - 63 U/L 06/12/2025 11:17 AM T [facility] [place] TOTAL PROTEIN S/P/B 7.5 6.4 - 8.2 G/DL 06/12/2025 11:17 AM T [facility] [place] ALBUMIN S/P/B 4.0 3.4 - 5.0 G/DL 06/12/2025 11:17 AM [facility] [place] ANION GAP 10.6 5 - 15 MMOL/L 06/12/2025 11:17 AM [facility] Comment:REFERENCE RANGE NOT ESTABLISHED OSMOLALITY (CALC) 295 MOSM/KG 025 11:17 AM [facility] Comment:REFERENCE RANGE NOT ESTABLISHED GFR ESTIMATE 56(L) >90 ML/MIN/1. 73 M2 06/12/2025 11:17 AM [facility] GFR NOTES GFR REFERENCE S: 06/12/2025 11:17 AM [facility] Comment: THE ESTIMATED GFR IS CALCULATED USING THE 2020 CKD-EPI EQUATION. THE FOLLOWING CATEGORIES FOR GRADING RENAL FUNCTION ARE RECOMMENDED BY THE INTERNATIONAL SOCIETY OF NEPHROLOGY (KDIGO 2012 CLINICAL PRACTICE GUIDELINE). G1,NORMAL OR HIGH: >89 ml/min/1.73 m2 G2,MILDLY DECREASED: 60-89 ml/min/1.73 m2 G3A,MILDLY TO MODERATELY DECREASED: 45-59 ml/min/1.73 m2 G3B,MODERATELY TO SEVERELY DECREASED: 30-44 ml/min/1.73 m2 G4,SEVERELY DECREASED: 15-29 ml/min/1.73 m2 G5,KIDNEY FAILURE: <15 ml/min/1.73 m2 06/11/2025 1:25 PM CDT us Jessee Anderson MD LABORATORY Final Result [facility] [address] [place] [address], [place] [phone] * LIPID PANEL (06/11/2025 1:25 PM CDT) CHOLESTEROL 140 <200 MG/DL 06/12/2025 11:17 AM CDT [facility] TRIGLYCERIDES 110 <150 MG/DL 06/12/2025 11:17 AM CDT [facility] HDL 42 >40 MG/DL 06/12/2025 11:17 AM CDT [facility] LDL-C 76 <100 MG/DL 06/12/2025 11:17 AM CDT [facility] VLDL CALCULATION 22 5 - 28 MG/DL 06/12/2025 11:17 AM CDT [facility] CHOL/HDL RATIO 3.3 0.0 - 4.0 06/12/2025 11:17 AM CDT [facility] LDL/HDL 1.8 0.41 - 2.13 06/12/2025 11:17 AM CDT [facility] NON HDL CHOLESTEROL 98 <140 MG/DL 06/12/2025 11:17 AM CDT [facility] 06/11/2025 1:25 PM CDT us Jessee Anderson MD LABORATORY Final Result [facility] [place] [address] [place] [address], [place] [phone] * HEMOGLOBIN, GLYCOSYLATED (06/11/2025) Only the most recent of2 resultswithin the time period is included. HGB A1C 5.9 % [facility] MELISSA ACEVES 06/11/2025 us Godfrey Carvajal MD LABORATORY Final Result [facility] [address] [place] [address], [place] * OUTSIDE PT/INR (SCAN ORDER) (06/05/2025) 06/05/2025 us [facility] Scanned SCANNING Final Resu lt * REVIEW,HOME INR TEST (06/04/2025 2:15 PM CDT) Only the most recent of7 resultswithin the time period is included. INR WHOLE BLOOD 2.2 2.000 - 3.000 [facility] [facility] 06/04/2025 2:15 PM CDT us Neno Chavez MD LABORATORY Final Resul t [facility] * CT ABD+PEL WO CON (05/11/2025 8:48 AM CDT) Anatomical Region Laterality Modality Abdomen Computed Tomogra phy 05/11/2025 1:45 PM CDT Impressions 05/11/2025 2:00 PM CDT IMPRESSION: 1. Dilated and nodular proximal left ureter. Nodular density within the proximal left ureter to just distal to the ureteropelvic junction measures 2.2 cm. This could be a blood clot, but urothelial neoplasm is a concern. Urology consultation recommended. CT abdomen and pelvis with and without contrast, urogram protocol also recommended nonemergently. 2. 18 mm low-density lesion in interpolar left renal cortex demonstrates Hounsfield units less than 10, likely an incidental cystic lesion. 3. Mild perinephric stranding bilaterally. 4. Small hiatal hernia. 5. Atherosclerosis and coronary calcifications. 6. Degenerative changes of the spine and sacroiliac joints. Ordered By: GODFREY CARVAJAL Interpreted By: Toni Alex, 05/11/2025 1:45 PM Narrative 05/11/2025 2:[address] PM [address] [address] EXAMINATION: CT Abdomen and Pelvis without contrast EXAM DATE/TIME: 05/11/2025 8:42 AM REASON FOR EXAM: Hematuria Right sided abdominal pain. COMPARISON: None TECHNIQUE: Axial imaging of the abdomen and pelvis was obtained without intravenous contrast. A dose lowering technique was used for this procedure, which may include, but is not limited to, dose reduction technique, automated exposure control, iterative reconstruction, ALARA (As Low As Reasonably Achievable), or Image Gently techniques. FINDINGS: Abdomen: Adrenals unremarkable. Kidneys: Dilated and nodular proximal left ureter. Nodular density within the proximal left ureter to just distal to the ureteropelvic junction measures 2.2 cm. 18 mm low-density lesion in interpolar left renal cortex demonstrates Hounsfield units less than 10, likely an incidental cystic lesion. Mild perinephric stranding bilaterally. No suspicious lesion or hydronephrosis on the right. Small hiatal hernia. Stomach and duodenum otherwise unremarkable. Spleen unremarkable. Gallbladder partially filled and grossly unremarkable. Pancreas grossly unremarkable. Hepatic parenchyma are within normal limits with no evidence of intrahepatic biliary dilatation or mass within the limitations of a noncontrast study. No mesenteric lymphadenopathy or evidence of small bowel obstruction. No free fluid or free air. No evidence of retroperitoneal lymphadenopathy. Moderate atherosclerosis. No evidence of abdominal aortic aneurysm. Scattered fecal material and gas throughout the colon without evidence of mass or dilatation. Appendix not inflamed. Pelvis: Urinary bladder and rectum are unremarkable. On bone windows, no evidence of suspicious skeletal lesion or acute compression fracture deformity. Moderate diffuse degenerative disc disease and facet arthropathy. Bilateral sacroiliac osteoarthritis. Limited evaluation of the lower thorax demonstrates no acute abnormality. Mild bilateral basilar atelectasis. Coronary calcifications. Procedure Note Toni Alex MD - 05/11/[address] [address] EXAMINATION: CT Abdomen and Pelvis without contrast EXAM DATE/TIME: 05/11/2025 8:42 AM REASON FOR EXAM: Hematuria Right sided abdominal pain. COMPARISON: None TECHNIQUE: Axial imaging of the abdomen and pelvis was obtained withoutintravenous contrast. A dose lowering technique was used for this procedure, which may include,but is not limited to, dose reduction technique, automated exposurecontrol, iterative reconstruction, ALARA (As Low As ReasonablyAchievable), or Image Gently techniques. FINDINGS: Abdomen: Adrenals unremarkable. Kidneys: Dilated and nodular proximal left ureter. Nodular density withinthe proximal left ureter to just distal to the ureteropelvic junctionmeasures 2.2 cm. 18 mm low-density lesion in interpolar left renal cortex demonstratesHounsfield units less than 10, likely an incidental cystic lesion. Mildperinephric stranding bilaterally. No suspicious lesion or hydronephrosis on the right. Small hiatal hernia. Stomach and duodenum otherwise unremarkable. Spleen unremarkable. Gallbladder partially filled and grossly unremarkable. Pancreas grossly unremarkable. Hepatic parenchyma are within normal limits with no evidence ofintrahepatic biliary dilatation or mass within the limitations of anoncontrast study. No mesenteric lymphadenopathy or evidence of small bowel obstruction. Nofree fluid or free air. No evidence of retroperitoneal lymphadenopathy. Moderate atherosclerosis. No evidence of abdominal aortic aneurysm. Scattered fecal material and gas throughout the colon without evidence ofmass or dilatation. Appendix not inflamed. Pelvis: Urinary bladder and rectum are unremarkable. On bone windows, no evidence of suspicious skeletal lesion or acutecompression fracture deformity. Moderate diffuse degenerative disc disease and facet arthropathy. Bilateral sacroiliac osteoarthritis. Limited evaluation of the lower thorax demonstrates no acuteabnormality. Mild bilateral basilar atelectasis. Coronary calcifications. IMPRESSION: 1. Dilated and nodular proximal left ureter. Nodular density within theproximal left ureter to just distal to the ureteropelvic junction measures2.2 cm. This could be a blood clot, but urothelial neoplasm is a concern.Urology consultation recommended. CT abdomen and pelvis with and withoutcontrast, urogram protocol also recommended nonemergently. 2. 18 mm low-density lesion in interpolar left renal cortex demonstratesHounsfield units less than 10, likely an incidental cystic lesion. 3. Mild perinephric stranding bilaterally. 4. Small hiatal hernia. 5. Atherosclerosis and coronary calcifications. 6. Degenerative changes of the spine and sacroiliac joints. Ordered By: GODFREY CARVAJAL Interpreted By: Toni Alex, 05/11/2025 1:45 PM Godfrey Carvajal MD CT Final Result * URINE BACTERIA CULTURE (05/10/2025 4:18 PM CDT) SPEC DESCRIPTION URINE CLEAN CATCH 05/10/2025 4:19 PM CDT [facility] SPECIAL REQUESTS NO SPECIAL REQUEST 05/10/2025 4:19 PM CDT [facility] CULTURE RESULT NO GROWTH (< OR = 1,000 CFU/ML) 05/12/2025 1:17 PM CDT [facility] URINE SPECIMEN OBTAINED BY CLEAN CATCH PROCEDURE / Unknown 05/10/2025 4:18 PM CDT 05/10/2025 9:07 PM CDT Godfrey Carvajal MD MICROBIOLOGY - GENERAL ORDERAB LES Final Result Performing Organization Address City/State/[facility] Co de Phone Number [facility] [address] [place] [address], [id number] * (ABNORMAL) URINALYSIS MICRO ONLY (05/10/2025 4:18 PM CDT) RBC/HPF 30-50(A) 0 - 3 /HPF 05/10/2025 8:09 PM CDT [facility] WBC/HPF 0-3 0 - 3 /HPF 05/10/2025 8:09 PM CDT [facility] EPI/HPF 0-3 /HPF 05/10/2025 8:09 PM CDT [facility] BACTERIA (U) NONE SEEN NONE SEEN 05/10/2025 8:09 PM CDT [facility] NON SQUAMOUS EPITHELIAL 0-3 /HPF 05/10/2025 8:09 PM CDT [facility] URINE SPECIMEN OBTAINED BY CLEAN CATCH PROCEDURE / Unknown 05/10/2025 4:18 PM CDT Godfrey Carvajal MD URINE ORDERABLES Final Result [facility] [address] [place] [address], * (ABNORMAL) CBC W/DIFF AUTOMATED (05/10/2025 4:18 PM CDT) WBC 10.73 4.00 - 10.80 x10'3/uL 05/10/2025 7:48 PM CDT [facility] RBC 4.01(L) 4.50 - 6.10 x10'6/uL 05/10/2025 7:48 PM CDT [facility] HGB 12.0(L) 13.0 - 18.0 G/DL 05/10/2025 7:48 PM CDT [facility] HCT 37.1 37.0 - 52.0 % 05/10/2025 7:48 PM CDT [facility] MCV 92.5 78.0 - 100.0 FL 05/10/2025 7:48 PM CDT [facility] MCH 29.9 27.0 - 31.0 PG 05/10/2025 7:48 PM CDT [facility] MCHC 32.3(L) 33.0 - 36.0 G/DL 05/10/2025 7:48 PM CDT [facility] RDW 15.3(H) 11.5 - 14.5 % 05/10/2025 7:48 PM CDT [facility] PLT 264 150 - 350 x10'3/uL 05/10/2025 7:48 PM CDT [facility] MPV 11.3(H) 7.4 - 10.4 FL 05/10/2025 7:48 PM CDT [facility] DIFFERENTIAL TYPE AUTOMATED DIFFERENTIAL 05/10/2025 7:48 PM CDT [facility] NEUTROPHILS % 67.4 % 05/10/2025 7:48 PM CDT [facility] LYMPHOCYTES % 22.4 % 05/10/2025 7:48 PM CDT [facility] MONOCYTES % 6.9 % 05/10/2025 7:48 PM CDT [facility] EOSINOPHILS % 2.8 % 05/10/2025 7:48 PM CDT [facility] BASOPHILS % 0.4 % 05/10/2025 7:48 PM CDT [facility] IMMATURE GRANS % 0.1 % 05/10/2025 7:48 PM CDT [facility] ABS. NEUTROPHILS 7.24 1.60 - 8.30 x10'3/uL 05/10/2025 7:48 PM CDT [facility] ABS. LYMPHOCYTES 2.40 0.80 - 4.70 x10'3/uL 05/10/2025 7:48 PM CDT [facility] ABS. MONOCYTES 0.74 0.00 - 1.50 x10'3/uL 05/10/2025 7:48 PM CDT [facility] ABS. EOSINOPHILS 0.30 0.00 - 0.40 x10'3/uL 05/10/2025 7:48 PM CDT [facility] ABS. BASOPHILS 0.04 0.00 - 0.20 x10'3/uL 05/10/2025 7:48 PM CDT [facility] ABS. IMMATURE GRANULOCYTES 0.01 0.00 - 0.03 x10'3/uL 05/10/2025 7:48 PM CDT [facility] 05/10/2025 4:18 PM CDT Godfrey Carvajal MD LABORATORY Final Result Performing Organization Address [facility]/ZIP Co de Phone Number [facility] [place] [address] [facility] [place] [address], [place] [phone] * (ABNORMAL) URINALYSIS AUTO DIP (05/10/2025) COLOR (U) DARK YELLOW YELLOW [facility] TRANSPARENCY CLOUDY(A) [facility] GLUCOSE (U) NEGATIVE NEGATIVE MG/DL [facility] BILIRUBIN (U) NEGATIVE NEGATIVE [facility] [place] MG/DL (U) NEGATIVE NEGATIVE MG/DL [facility] SPECIFIC GRAVITY (U) 1.020 1.001 - 1.035 [facility] BLOOD (U) MODERATE (Non Hemolyzed, Intact, About 50 rbc/uL)(A) NEGATIVE [facility] Comment:Culture and Micro se nt U PH 6.5 5.0 - 9.0 [facility] PROTEIN (U) 1+ (30)(A) NEGATIVE mg/dL [facility] UROBILINOGEN 0.2 0.2 - 1.0 EU/dL = mg/dL [facility] NITRITES NEGATIVE NEGATIVE MG/DL [facility] LEUKOCYTES (U) NEGATIVE NEGATIVE [facility] URINE SPECIMEN OBTAINED BY CLEAN CATCH PROCEDURE / Unknown 05/10/2025 Godfrey Carvajal MD URINE ORDERABLES Final Result Performing Organization Address [facility]/ZIP Co de Phone Number [facility] [address] [place] [address], [place] * COLONOSCOPY GENERIC (SCAN ORDER) (12/19/2024) 12/19/2024 [facility] Scanned SCANNING Final Resu lt * DIABETIC RETINOPATHY EXAM (NEGATIVE) (10/19/2023) [facility] Scanned SCANNING Final Resu lt [facility] ON[facility] from Last 3 Months or Most Recently Relevant to Health Maintenance Insurance [facility] Advance Directives Documents on File Type Date Recorded Patient Carrier Packer Expl anation Legal Documents 12/13/2018 Legal Documents [...] 5:38 PM 07/09/2023 7:47 PM Care Teams Soils Engineer Relationship Specialty Start Date End Date Godfrey Carvajal MD [address] [place] [address] PCP - General 09/18/14
--- OUTSIDE RECORDS SUMMARY | 2025-06-14 00:52 | XMS_ITS | Encounter Summary ---
Author Organization [facility] Address Formerly [facility] [place] [address] Care Team Providers Care Residential Monitor Name Role Phone Godfrey Abrams MD Primary Care Provider [phone] Encounter Details Date Type Department Care Team (Late st Contact Info) Description 05/15/2024 Neurala Message Enc [facility] [address] [address] [facility] Provider warfarin/lovenox instructions Social History Tobacco Use [...] How often do you attend chur or buddhist services? Never 02/04/2023 Do you belong to any clubs o r organizations such as buddhist groups, unions, fraternal or athletic groups, or [...] Recorded Patient Health Questionnaire-2 Score 0 11/23/2023 [facility] - [...] Description 06/29/2025 8:45 AM CDT Office Visit [facility] [address] Jessee Anderson MD [address] [place] [address] [place] [phone] 10/01/2025 10:20 AM WOOD MODEL MAKER Office Visit [facility] Family & Internal Medicine - [address] [phone] Godfrey Abrams MD [address] [place] [address] documented as of this encounter Goals Goal [...] documented as of this encounter Care Teams Residential Monitor Relationship Specialty Start Date End Date Godfrey Abrams MD [address] [place] [address] PCP - General 09/18/14 documented as of this encounter
--- OUTSIDE RECORDS SUMMARY | 2025-06-14 00:52 | XMS_ITS | Encounter Summary ---
Author Organization [facility] Facility Care Team Providers Care Java Application Developer Name Role Phone Godfrey Abrams MD Primary Care Provider [phone] Kyle Davey MD Unavailable [phone] Encounter Details Date Type Department Care Team (Latest Contact Info) Description 04/28/2017 Orders Only [facility] ProviderMaria De Jesus MD [address] [place] [address] Social History Tobacco Use Types Packs/Day Years Used Date Smoking Tobacco: Never Assessed Sex and Gender Information Value Date Recorded Sex Assigned at Not on file Legal Sex 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
--- OUTSIDE RECORDS SUMMARY | 2025-06-14 00:52 | XMS_ITS | Encounter Summary ---
Author Organization [facility] Facility Care Team Providers Care Occupational Safety Specialist Name Role Phone Godfrey Abrams MD Primary Care Provider [phone] Kyle Davey MD Unavailable [phone] Encounter Details Date Type Department Care Team (Latest Contact Info) Description 03/25/2016 Orders Only [facility] ProviderMaria De Jesus MD [address] [place] [address] Social History Tobacco Use Types Packs/Day Years Used Date Smoking Tobacco: Never Assessed Sex and Gender Information Value Date Recorded Sex Assigned at Not on file Legal 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
--- OUTSIDE RECORDS SUMMARY | 2025-06-14 00:52 | XMS_ITS | Clinical Summary ---
Author Organization [facility] Address [address] [place] [address] Phone Care Team Providers Care Senior Manufacturing Test Engineer Name Role Phone Godfrey Abrams MD Primary Care Provider [phone] Kyle Davey MD Unavailable [phone] Allergies No known active allergies Medications allopurinol [...] effective and caused headache. 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 use of terminal gauger supervisor anticoagulation 010 Chronic systolic CHF (congestive heart failure) DM (diabetes mellitus), type 2 with peripheral vascular complications Gout Neuropathy PVD (peripheral vascular disease) Encounters Date Type Department Care Team Description 06/12/2025 11:15 AM CDT Orders Only [facility] Office Building 2 Wound Care [address] [facility] [address] [place] [address] 05/29/2025 11:15 AM CDT Orders Only [facility] Office Building 2 Wound Care [address] [facility] [address] [place] [address] 05/15/2025 9:30 AM CDT Orders Only [facility] Medical Office Building 2 Wound Care [address] [facility] [address] [place] [address] 05/01/2025 9:15 AM CDT Orders Only [facility] Office Building 2 Wound Care [address] [facility] [address] [place] [address] 04/17/2025 9:30 AM CDT Orders Only [facility] Office Building 2 Wound Care [address] [facility] [address] [place] [address] 04/03/2025 3:15 PM CDT Orders Only [facility] Medical Office Building 2 Wound Care [address] [facility] [address] [place] [address] 03/20/2025 1:45 PM CDT Orders Only [facility] Office Building 2 Wound Care [address] [facility] [address] [place] [address] from Last 3 Months Immunizations Immunization Administration [...] possible intervention; Surgeon: Aleksander Power MD; Location: [facility] REGISTRY RN; Service: Vascular; Laterality: Right; Medical devices from this surgery are in the Medical Devices section. CARDIAC CATHETERIZATION 01/23/2025 N/A Procedure: AORTOGRAM ABDOMINAL S&I [id number]; Surgeon: Aleksander Power MD; Location: [facility] REGISTRY RN; Service: Vascular; Laterality: N/A; Medical devices from [...] deficiency and homocystinuria 2010 Current use of penitentiary anticoagulation 2010 Family History Medical History Relation [...] experiencing loneliness or isolatio n Never 02/03/2025 [facility] Utilities Answer Date Recorded In the past 12 months has e [employer], gas, oil, or water [employer] threatened to shut off services in your [...] often do you attend chur ch or alevism services? Never 01/19/2025 Do you belong to any clubs o r organizations such as christianity groups, unions, fraternal or athletic groups, or [...] any time in the past 12 m [facility], were you homeless or living in a half-way (including now)? No 01/19/2025 Personal Safety Answer Date Recorded Have you ever been in or are you currently in a harmful physical or emotional relationship or is someone making you feel afraid or unsafe? 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 Gender Identity Not on file Sexual Orientation [...] 05/11/2025, 01/18/2025 Medical Devices Implanted Type Area Ecotherapist Device Identifier Shelf Expiration Date Model / Serial / Lot [employer] Vascular System Closure Repair Femoral Artery Suture Mediated Perclose Prostyle 23868-99 - Sn/A - [id number] Implanted:Qty: 1 on 01/23/2025 by Aleksander Power MD at [facility] Other - see comments Left: Femoral [employer] Vascular 10/27/2026 52936-75 / N/A / [id number] [employer] Vascular System Closure Repair Femoral Artery Suture Mediated Perclose Prostyle 35764-74 - Sn/A - [id number] Implanted:Qty: 1 on 01/23/2025 by Aleksander Power MD at [facility] Other - see comments Left: Femoral [employer] Vascular 10/27/2026 [id number] / N/A / [id number] Procedures Procedure Name Priority Date/Time Associated Diagnosis [...] ORDERABLES Final R esult Performing Organization Address City/[facility] Co de Phone Number [facility] [address] [place] [address] * (ABNORMAL) Hemoglobin A1c (01/22/2025 11:02 AM CDT) [facility] Hgb A1C 9.9(H) 4.0 - 5.6 % Estimated Average Glucose 237 mg/dL [facility] Comment: The ADA recommends reporting an estimated Average Glucose (eAG) with all Hemoglobin A1c results using the equation derived from a study of 507 normal and diabetic adults. Minority populations were underrepresented and children were not included. (Diabetes Care 31:3948-8414, 2008). The eAG is not equivalent to a fasting glucose. Blood 01/22/2025 11:0 2 AM CDT 01/22/2025 11:08 AM CDT Hitesh Schroeder MD LAB BLOOD ORDERABLES Final R esult [facility] [address] [facility] Department [place] [address] * CT Chest WO Contrast [...] lung have resolved. CORONARY ARTERY CALCIFICATION: Dense lovelock coronary artery calcification. OTHER: Curvilinear scarring in [...] by Zane Novoa M.D. T: Report ID: [id number] Reading Location: [place] [address] Procedure Note Zane Novoa Jr., MD - [...] lung have resolved. CORONARY ARTERY CALCIFICATION: Dense lovelock coronary arterycalcification. OTHER: Curvilinear scarring in the [...] by Zane Novoa M.D. 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
--- NOTE | 2025-06-14 05:56 | WPDHPUPDATE1 ---
History and Physical Update Update Date/Time: 06/14/25 05:56 History and Physical has been reviewed, including an updated exam of the patient. There are NO changes in the patient's condition. Risks, benefits, and alternatives have been discussed and questions answered. Patient agrees to proceed with procedure.
[2025-06-14] MEDS: LACTATED RINGERS 1,000 ML 30 ML IV CONT (11:00)
--- NOTE | 2025-06-14 11:28 | WPDANESEPPF ---
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 Patient Data Age: 64 Gender: M Height: 1.85 m Weight: 102 kg Last Vital Signs Temp 97.4 F L 06/14/25 10:55 Pulse 54 L 06/14/25 10:55 Resp 16 06/14/25 10:55 BP 128/72 06/14/25 10:55 Pulse Ox 99 06/14/25 10:55 Allergies Allergy/AdvReac Type Severity Reaction Status Date / Time No Known Allergies Allergy Verified 06/14/25 10:53 Home Medications ?Medication ?Instructions ?Recorded ?Confirmed ?Type allopurinol 300 mg tablet 300 mg PO DAILY 07/09/23 06/01/25 History atorvastatin 40 mg tablet 40 mg PO HS 07/09/23 06/01/25 History folic acid 1 mg tablet 1 mg PO DAILY 07/09/23 06/01/25 History gabapentin 600 mg tablet 600 mg PO DAILY 07/09/23 06/01/25 History metoprolol succinate 100 mg 75 mg PO DAILY 07/09/23 06/14/25 History tablet,extended release 24 hr pantoprazole 40 mg tablet,delayed 40 mg PO DAILY 07/09/23 06/01/25 History release warfarin 5 mg tablet 5 mg PO DAILY 07/09/23 06/14/25 History sacubitril 24 mg-valsartan 26 mg 1 tablet PO BID 07/04/24 06/01/25 History tablet (Entresto) spironolactone 25 mg tablet 25 mg PO DAILY 07/04/24 06/01/25 History aspirin 81 mg tablet 81 mg PO DAILY 12/12/24 06/14/25 History enoxaparin 100 mg/mL subcutaneous 100 mg subcut BID Coumadin Bridging 12/19/24 06/14/25 History syringe cholecalciferol (vitamin D3) 125 125 mcg PO DAILY 06/01/25 06/01/25 History mcg (5,000 unit) tablet (Vitamin D3) psyllium husk 0.4 gram capsule 0.4 g PO DAILY 06/01/25 06/01/25 History (Daily Fiber) vitamin B complex (Balanced B-50 1 tablet PO DAILY 06/01/25 06/01/25 History tablet) Laboratory Tests 06/14/25 06/14/25 11:14 11:16 PT Pending INR Pending APTT Pending POC Capillary Glucose 127 H mg/dl (65-105) Patient hx anesthesia problems: none Family hx anesthesia problems: none Results Review: All pre-operative results and documents have been reviewed as part of the pre-operative evaluation. [facility] Past Medical History Medical History Abnormal CT scan GERD (gastroesophageal reflux disease) Tobacco use Peripheral neuropathy Cardiomyopathy ETHEL (obstructive sleep apnea) HLD (hyperlipidemia) Chronic anticoagulation MTHFR gene mutation Surgical History Surgical History S/P CABG x 4 Family History Family History Mother Diabetes mellitus Colon cancer Breast cancer Mother No problems noted. Sibling Malignant neoplasm of prostate Other Family history of malignant neoplasm Hypertension Social History Social History Smoking packs per day: 1 Smoking cigarettes per day: 20.0 Years smoked: 40 Smoking pack-years: 40.00 Smoking status: Former smoker Tobacco type: cigarettes Smoking end date: 07/19/23 Additional smoking assessment comments: states he had cut back smoking less than 1 pkg/day in last couple of years Alcohol intake: current Drinks per week: 3 Substance use: current Substance use type: marijuana and other Other substance usage details: edibles daily /Medical marijuana for pain relief Last use: 07/08/23 10pm medical marijuana Lack of Transportation: No Lack of Food: Never True Current Housing: I Have Housing Concerned About Future Housing: No Difficulty Paying Gas/Electric Bills: No Difficulty Paying for Meds: No Currently Unemployed: No Education: Trade/Vocational Certificate Difficulty w/ Childcare or Family Care: No Living arrangements: with family Additional living arrangements comments: Spiritual care concerns: No Anes - Eval Final PreProcedure Day of Procedure 06/14/25 11:28 Patient weight: obese Lungs: normal air movement Airway: Mallampati scale class II and special considerations (Upper and lower dentures. ) Neurological: alert and oriented Last oral intake: >/= 8 hours ASA classification: IV Emergent: no Anesthetic plan: proceed Anesthesia type and monitoring: general LMA and standard monitoring Results Review: All pre-operative results and documents have been reviewed as part of the pre-operative evaluation. HTN, hyperlipidemia, s/p CABG x 2022, ex smoker, quit 2022, ETHEL on CPAP, MTHFR gene, ac on hold for this, ETOH use 4 drinks/week. Informed Consent: The patient's anesthetic plan and its attendant risks and benefits were discussed with the patient/family/POA. Questions were solicited and answers provided to the satisfaction of the patient/family/POA.
[2025-06-14 11:37] LABS: INR 1.0; Prothrombin Time 13.0 Seconds (11.1-14.7)
[2025-06-14 11:38] LABS: Partial Thromboplastin Time 34.3 Seconds (22.3-36.8)
[2025-06-14] MEDS: ceFAZolin 2 GM in SODIUM CHLORIDE 0.9% IV 50 ML 100 ML IVPB (11:52)
[2025-06-14] MEDS: LIDOCAINE 2% GEL UROJET 10 ML PKG MUCOUS MEM (12:12)
--- NOTE | 2025-06-14 12:24 | S_PTH ---
PATIENT: Natan Mari LOC: [facility] U#:[id number] AGE/SX: 64/M ROOM: RE06/14/[address]: Jaquan Rhoades MD : 1960 BED: DIS: 06/14/2025 SPEC #: [id number] RECD: 06/14/25 12:49 STATUS: ARLETTE REQ #: [id number] MORENITA: 06/14/25 12:[address]: Jaquan Rhoades DEPT: [facility] Surgical RECD BY: Paulina Horta ENTERED: 06/14/25 12:50 SP TYPE: Surgical OTHR DR: Godfrey AbramsMD Tissues: A - Ureteral Biopsy B - Urine C - Cytology Fluid Procedures: Hematoxylin and Eosin Stain Cell Block Gross and Microscopic Level 4 Cytopathology Cytospin
--- NOTE | 2025-06-14 12:58 | W.PM.PROC2 ---
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 Cystoscopy was undertaken with a 19 F rigid cystoscope. There was no urethral stricture with a 2 cm prostatic urethra and no median lobe enlargement. The bladder mucosa was perfectly normal without hyperemia. There was no sign of any intravesical foreign body neoplasm. Bladder urine was collected for cytology. A [place] catheter was in place in the left renal pelvis and a renal wash was obtained. Retrograde pyelography shows a large filling defect with a wine glass appearance in the left mid ureter, highly suggestive of urothelial carcinoma. Left ureteral-renoscopy was undertaken with a 7.5 F digital flexible ureteral scope. All calices in the renal pelvis recovery examined and appeared perfectly normal without any signs of urothelial carcinoma. 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 The more distal ureter appears normal. I used a Parana forceps and basket to obtain tissue from this site. Given the extensive nature of this I did not feel it was amenable to laser ablation, particularly if it is high-grade. Since he is pain-free I opted not to place ureteral stent. Scopes wires removed and he was taken recovery room good condition. Drains No Pathology Yes
[2025-06-14] MEDS: ONDANSETRON HCL ODT 4 MG TABLET PO (14:07)
--- NOTE | 2025-06-14 14:15 | SUR.PHASEII ---
Patient c/o increased abdominal pain as well as nausea and vomiting after getting dressed. Dr Rhoades in room to see patient at this time.
[2025-06-14] MEDS: oxyCODONE HCL (*CRX) 5 MG TAB IR PO (14:30)
--- NOTE | 2025-06-14 14:50 | SUR.PHASEII ---
Dr Rhoades notified by this RN of patient's increased abdominal pain. PO Oxycodone given at 1430 with no relief yet. Dr Rhoades stated he would be down to see patient again in OP recovery.
[2025-06-14] MEDS: KETOROLAC 30 MG/ML VIAL (*BKC) IM (15:06)
--- NOTE | 2025-06-14 15:28 | SUR.PHASEII ---
Patient went to bathroom and passed small clot and stated his pain is now much better. Dr Rhoades in room assessing patient. Per okay to d/c patient home now.
--- NOTE | 2025-06-14 15:35 | SUR.PHASEII ---
Patient stated pain is tolerable and ready to go home. Patient and , Ana, educated on new prescription medications and when they can be taken next. Patient and spouse voiced understanding with no further questions.
== END 2025-06-14 15:42 | disposition home or self-care (01) ==
PROVIDERS: Anesthesiology; PCP Internal Medicine; Visit Provider Urology
PROC: (CPT 52352; principal; 2025-06-14 12:15)
DX: C66.2 Malignant neoplasm of left ureter (principal); E78.5 Hyperlipidemia, unspecified; I10 Essential (primary) hypertension; K21.9 Gastro-esophageal reflux disease without esophagitis; G62.9 Polyneuropathy, unspecified; G47.33 Obstructive sleep apnea (adult) (pediatric); E72.12 Methylenetetrahydrofolate reductase deficiency; I25.2 Old myocardial infarction; F12.90 Cannabis use, unspecified, uncomplicated; E66.9 Obesity, unspecified; Z68.29 Body mass index [BMI] 29.0-29.9, adult; Z79.01 Long term (current) use of anticoagulants; Z79.82 Long term (current) use of aspirin; Z99.89 Dependence on other enabling machines and devices; Z95.1 Presence of aortocoronary bypass graft; Z87.891 Personal history of nicotine dependence; Z80.42 Family history of malignant neoplasm of prostate; Z80.3 Family history of malignant neoplasm of breast; Z80.0 Family history of malignant neoplasm of digestive organs
CPT/HCPCS: 52354; 36415; 74420; 82948; 85610; 85730; 88108; 88305; J0690; A9270; C1758; C1769; J1885; J2003; J2405; J2704; J3010; J7120; Q9966

== ENCOUNTER 2025-09-04 21:20 | Emergency (ER) | payer MEDICARE, SELFPAY ==
--- OUTSIDE RECORDS SUMMARY | 2025-09-04 21:24 | XMS_ITS | Encounter Summary ---
Author Organization [facility] Address [address] [place] [address] Care Team Providers Care Torpedo Worker Name Role Phone Godfrey Abrams MD Primary Care Provider [phone] Jodi Ortiz RN Unavailable Unavailable Encounter Details Date Type Department Care Team (Late st Contact Info) Description 09/22/2023 Categorical Message Enc [facility] Family & Internal Medicine [address] [phone] [place], [facility] Provider Dilated Diabetic Eye Exam Social History [...] or ex-partner? No 07/11/2023 Social Connection and Isolation Panel Answer Date Recorded In a typical week, how many times do you talk on the phone with family, friends, or neighbors? More than three times a week 02/04/2023 How often do you get togethe r with friends or relatives? More than three times a week 02/04/2023 How often do you attend chur ch or church services? Never 02/04/2023 Do you belong to any clubs o r organizations such as religious groups, unions, fraternal or athletic groups, or [...] Recorded Patient Health Questionnaire-2 Score 0 11/19/2022 [facility] of Occupat ional Health - Occupational Stress [...] place to sleep or slept in a mcfp (including now)? No 07/11/2023 Sex and Gender [...] Care Team (Late st Contact Info) Description 10/01/2025 10:20 AM PETS AND PET SUPPLIES SALESPERSON Office Visit [facility] Family & Internal Medicine - [address] [address] Godfrey Abrams MD [address] [place] [address] 11/02/2025 9:00 AM PETS AND PET SUPPLIES SALESPERSON Office Visit [facility] [phone] Jessee Anderson MD [address] [place] [address] [place] [phone] documented as of this encounter Goals Goal [...] documented as of this encounter Care Teams Torpedo Worker Relationship Specialty Start Date End Date Godfrey Abrams MD [address] [place] [address] PCP - General 09/18/14 Jodi Ortiz, oil recovery unit operator (Ambulatory) REGISTERED NURSE 07/20/2506/28 documented as of this encounter
--- OUTSIDE RECORDS SUMMARY | 2025-09-04 21:24 | XMS_ITS | Encounter Summary ---
Author Organization [facility] Address [address] [facility] [address] [place] [address] Care Team Providers Care Tape Stringer Name Role Phone Godfrey Abrams MD Primary Care Provider [phone] Kyle Davey MD Unavailable [phone] Encounter Details Date Type Department Care Team (Late st Contact Info) Description 01/23/2015 Orders Only [facility] Health Information Management [address] [place] [address] Scanning, Provider Social History Tobacco Use Types Packs/Day Years Used Date Smoking Tobacco: Never Assessed Sex and Gender Information Value Date Recorded Sex Assigned at Not on file Legal Sex Male 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
--- OUTSIDE RECORDS SUMMARY | 2025-09-04 21:24 | XMS_ITS | Encounter Summary ---
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
--- OUTSIDE RECORDS SUMMARY | 2025-09-04 21:24 | XMS_ITS | Encounter Summary ---
Author Organization [facility] Care Team Providers Care Environmental Engineering Intern Name Role Phone Godfrey Abrams MD Primary Care Provider [phone] Kyle Davey MD Unavailable [phone] Encounter Details Date Type Department Care Team (Latest Contact Info) Description 03/20/2016 Orders Only [facility] ProviderMaria De Jesus MD [address] [place] [address] Social History Tobacco Use Types Packs/Day Years Used Date Smoking Tobacco: Never Assessed Sex and Gender Information Value Date Recorded Sex Assigned at Not on file Legal Sex Male 10:16 AM MEDICAL/SURGERY REGISTERED NURSE Gender Identity Not on file Sexual [...] on filedocumented in this encounter Care Teams Environmental Engineering Intern Relationship Specialty Start Date End Date Godfrey Abrams MD PCP - General Internal Medicine 06/15/18 Kyle Davey MD [facility] [facility] [address] [place] [address] Consulting Physician Vascular Surgery 01/31/25 documented as of this encounter
--- OUTSIDE RECORDS SUMMARY | 2025-09-04 21:24 | XMS_ITS | Encounter Summary ---
Author Organization [facility] Address [facility] [place] [address] Care Team Providers Care Lead Fabricator Name Role Phone Godfrey Abrams MD Primary Care Provider [phone] Jodi Ortiz RN Unavailable Unavailable Encounter Details Date Type Department Care Team (Late st Contact Info) Description 05/15/2024 Simple IT Message Enc [facility] [address] Mychart, [facility] Provider warfarin/lovenox instructions Social History Tobacco [...] How often do you attend chur or sabianist services? Never 02/04/2023 Do you belong to any clubs o r organizations such as jehovah's witness groups, unions, fraternal or athletic groups, or [...] Recorded Patient Health Questionnaire-2 Score 0 11/23/2023 [facility] [place] of Occupat ional Health - Occupational Stress [...] place to sleep or slept in a correction (including now)? No 07/11/2023 Sex and Gender [...] 11:14 PM LESLEET Colten Sepulveda RN Active * Because of [...] st Contact Info) Description 10/01/2025 10:20 AM SENIOR QA ANALYST Office Visit [facility] Family & Internal Medicine - [address] [phone] Godfrey Abrams MD [address] [place] [address] 11/02/2025 9:00 AM SENIOR QA ANALYST Office Visit [facility] [phone] Jessee Anderson MD [address] [facility] [address] [place] [phone] documented as of this encounter Goals [...] documented as of this encounter Care Teams Lead Fabricator Relationship Specialty Start Date End Date Godfrey Abrams MD [address] [place] [address] PCP - General 09/18/14 Jodi Ortiz, electroplating sales representative (Ambulatory) REGISTERED NURSE 07/20/2506/28 documented as of this encounter
--- OUTSIDE RECORDS SUMMARY | 2025-09-04 21:24 | XMS_ITS | Encounter Summary ---
Author Organization [facility] Address [address] [place] [address] Care Team Providers Care Canary Breeder Name Role Phone Godfrey Abrams MD Primary Care Provider [phone] Reason for Visit * Reason Onset Date Comments Anticoagulation 09/03/2025 protime Encounter Details Date Type Department Care Team (Latest Contact Info) Description 09/03/2025 [facility] [address] [address] Hali Stephens, RN Anticoagulation (protime) Social History Tobacco Use Types Packs/Day Years [...] How often do you attend chur or mandaeism services? Never 02/04/2023 Do you belong to any clubs o r organizations such as episcopal groups, unions, fraternal or athletic groups, or [...] Recorded Patient Health Questionnaire-2 Score 0 01/09/2025 [facility] [place] of Occupat ional Health - Occupational Stress [...] money to buy more. Never true 07/11/20 Within the past 12 months, t he [...] place to sleep or slept in a mcc (including now)? No 07/11/2023 Humiliation, Afraid, Rape, and Kick questionnair e Answer Date Recorded Within the last year, have y ou been afraid of your partner or ex-partner? No 07/19/2025 Within the last year, have y ou been humiliated or emotionally abused in other ways by your partner or ex-partner? No Within the last year, have y ou been kicked, hit, slapped, or otherwise physically hurt by your partner or ex-partner? No 07/19/2025 Within the last year, have y ou been raped or forced to have any kind of sexual activity by your partner or ex-partner? No 07/19/2025 Overall Financial Resource Strain (CARDIA) Answe r Date Recorded How hard is it for you to pa y for the very basics like food, housing, medical care, and heating? Not hard at all 07/19/2025 [facility] [place] of Occupat ional Health - Occupational Stress Questionnaire Answer Date Recorded Do you feel stress - tense, restless, nervous, or anxious, or unable to sleep at night because your mind is troubled all the time - these days? Not at all 07/19/2025 Exercise Vital Sign Answer Date Recorde d On average, how many days pe r week do you engage in moderate to strenuous exercise (like a brisk walk)? 0 days 07/19/2025 On average, how many minutes do you engage in exercise at this level? 0 min 07/19/2025 Hunger Vital Sign Answer Date Recorded Within the past 12 months, y ou worried that your food would run out before you got the money to buy more. Never true 07/19/20 25 Within the past 12 months, t he food you bought just didn't last and you didn't have money to get more. Never true 07/19/2025 PRAPARE - Transportation Answer Date Re corded In the past 12 months, has l ack of transportation kept you from medical appointments or from getting medications? No 06/28 In the past 12 months, has l ack of transportation kept you from meetings, work, or from getting things needed for daily living? No 07/19/2025 Housing Stability Vital Sign Answer Eros e Recorded In the last 12 months, was t here a time when you were not able to pay the mortgage or rent on time? No 07/19/2025 In the past 12 months, how m any times have you moved where you were living? 0 07/19/2025 At any time in the past 12 m [facility], were you homeless or living in a mcc (including now)? No 07/19/2025 B1300 Health Literacy Answer Date Recor ded How often do you need to hav e someone help you when you read instructions, pamphlets, or other written material from your doctor or pharmacy? Rarely 07/19/2025 [facility] Utilities Answer Date Recorded In the past 12 months has th e electric, gas, oil, or water company threatened to shut off services in your home? No 07/19/2025 Sex and Gender Information Value Date Recorded Sex Assigned at Male 12/13/2018 8:47 AM CDT Legal Sex Male 7:24 PM CDT Gender Identity Male 12/13/2018 8:47 AM CDT Sexual Orientation Straight 12/13/2018 8: 47 AM CDT documented as of this encounter Functional Status * Are you deaf or do you have serious difficulty hearing Answer Date of Assessment Author Status No 07/19/2025 1:21 PM CDT Edith Bowser RN Active * Are you blind or do you have serious difficulty seeing, even when wearing glasses? Answer Date of Assessment Author Status No 07/19/2025 1:21 PM CDT Edith Bowser RN Active * Do you have serious difficulty walking or climbing stairs? Answer Date of Assessment Author Status No 07/19/2025 1:21 PM LESLEET Edith Bowser RN Active * Do you have difficulty dressing or bathing? Answer Date of Assessment Author Status No 07/19/2025 1:21 PM LESLEET Edith Bowser RN Active * Because of a physical, mental, or emotional condition, do you have difficulty doing errands alone such as visiting a doctor's office or shopping? Answer Date of Assessment Author Status No 07/19/2025 1:21 PM LESLEET Edith Bowser RN Active documented as of this encounter Mental Status * Because of a physical, mental, or emotional condition, do you have serious difficulty concentrating, remembering, or making decisions? Answer Entry Date Author Status No 07/19/2025 1:21 PM LESLEET Edith Bowser RN Active documented in this encounter Progress Notes * Hali Stephens RN - 09/03/2025 1:38 PM CST INR 2.3 patient reports that he started with hematuria with clots yesterday after lifting a heavy bag of birdseed.Patient states he had hematuria 2 wks ago but it cleared after a few days.Patient states he is seeing urology tomorrow for the bleeding.Patient suggested he maybe hold warfarin for 2 days to help decrease the bleeding.Patient has already taken his am dose of warfarin.Inderjit msg sent to . 09/03/25 patient notified ok to hold the warfarin 2 days then resume 5mg Sat 7.5mg the other days.Repeat the INR in 1wk. CTOR ECONOMIC CTOR ECONOMIC documented in this encounter Plan of Treatment Upcoming Encounters Date Type Department Care Team (Late st Contact Info) Description 10/01/2025 10:20 AM DIRECTOR ECONOMIC Office Visit [facility] Family & Internal Medicine - [address] [phone] Godfrey Abrams MD [address] [place] [address] 11/02/2025 9:00 AM DIRECTOR ECONOMIC Office Visit [facility] [phone] Jessee Anderson MD [address] [facility] [address] [phone] documented as of this encounter Goals [...] documented as of this encounter Care Teams Canary Breeder Relationship Specialty Start Date End Date Godfrey Abrams MD [address] [place] [address] PCP - General 09/18/14 documented as of this encounter
--- OUTSIDE RECORDS SUMMARY | 2025-09-04 21:24 | XMS_ITS | Clinical Summary ---
Author Organization [facility] Address [address] [place] [address] Phone Care Team Providers Care Technician Support Engineer Name Role Phone Godfrey Abrams MD Primary Care Provider [phone] Kyle Davey MD Unavailable Allergies No known active allergies Medications allopurinol [...] catheter as needed (catheter maintenance) 5 Active Additional Information Patient not taking.Reported on 08/10/2025 Active Problems Problem Noted Date Diagnosed Date [...] effective and caused headache. Current use of longterm anticoagulation 010 Chronic systolic CHF (congestive heart failure) DM (diabetes mellitus), type 2 with peripheral vascular complications Gout Neuropathy PVD (peripheral vascular disease) Encounters Date Type Department Care Team Description 08/10/2025 9:15 AM CONSTRUCTION OPERATIONS MANAGER Office Visit [facility] [address] [place] [address] [address] [place] [address] Zheng Patiño, MTHFR mutation (methylenetetrahydrof olate reductase) 07/31/2025 11:00 AM CONSTRUCTION OPERATIONS MANAGER Orders Only [facility] 2 Wound Care [address] [place] [address] [place] [id number] 07/10/2025 11:30 AM CDT Orders Only [facility] 2 Wound Care [address] [place] [address] [place] [id number] 06/26/2025 11:15 AM CDT Orders Only [facility] 2 Wound Care [address] [place] [address] [address] [place] [address] 06/12/2025 11:15 AM CDT Orders Only [facility] 2 Wound Care [address] [place] [phone] from Last 3 Months Immunizations Immunization Administration [...] possible intervention; Surgeon: Aleksander Power MD; Location: [facility]; Service: Vascular; Laterality: Right; Medical devices from this surgery are in the Medical Devices section. CARDIAC CATHETERIZATION 01/23/2025 N/A Procedure: AORTOGRAM ABDOMINAL S&I [id number]; Surgeon: Aleksander Power MD; Location: [facility]; Service: Vascular; Laterality: N/A; Medical devices from this surgery are in the Medical Devices section. AMPUTATION OF REPLICATED TOES 12/26/2024 - 01/24/2025 Right KIDNEY SURGERY 07/19/2025 kidney removal Medical History Medical History Date Comments PVD (peripheral vascular disease) Arthritis Ruptured lumbar disc HTN (hypertension) Hyperlipidemia Neuropathy Gout Obstructive sleep apnea on CPAP Pulmonary nodule Polyp, intestinal 12/2024 Chronic systolic CHF (congestive heart failure) ([facility]) Paroxysmal atrial fibrillation (HCC) 07/13/2023 NSTEMI (non-ST elevated myocardial infarction) ( [facility]) 07/09/2023 Coronary artery disease DM (diabetes mellitus), type 2 with peripheral vascular complications (HCC) 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 Never 01/19/2025 Do you belong to any clubs o r organizations such as religion groups, unions, fraternal or athletic groups, or school groups? No 01/19/2025 How often do you attend meet ings of the clubs or organizations you belong to? Never 01/19/2025 Are you , , di vorced, , never , or living with a partner? 01/19/2025 Overall Financial Resource Strain (CARDIA) Answe r [...] money to buy more. Never true 01/20/20 Within the past 12 months, t he [...] any time in the past 12 m [facility], were you homeless or living in a retirement (including now)? No 01/19/2025 AUDIT-C Answer Date Recorded Frequency of Alcohol Consumption Not on file 08/10/2025 Q2: How many drinks containi ng alcohol do you have on a typical day when you are drinking? 1 or 2 08/10/2025 Q3: How often do you have si x or more drinks on one occasion? Monthly 08/10/2025 Personal Safety Answer Date Recorded Have you ever been in or are you currently in a harmful physical or emotional relationship or is someone making you feel afraid or unsafe? 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 CONSTRUCTION OPERATIONS MANAGER Gender Identity Not on file Sexual Orientation Not on file Last Filed Vital Signs Vital Sign Reading Time Taken Comments Blood Pressure 130/62 08/10/2025 9:16 AM CONSTRUCTION OPERATIONS MANAGER Pulse 68 08/10/2025 9:16 AM CONSTRUCTION OPERATIONS MANAGER Temperature 36.8 C (98.3 F) 08/10/2025 9:16 AM CONSTRUCTION OPERATIONS MANAGER Respiratory Rate 16 08/10/2025 9:16 AM CONSTRUCTION OPERATIONS MANAGER Oxygen Saturation 97% 08/10/2025 9:16 AM CONSTRUCTION OPERATIONS MANAGER Inhaled Oxygen Concentration - - Weight 103.7 kg (228 lb 9.9 oz) 08/10/2025 9:16 AM CONSTRUCTION OPERATIONS MANAGER Height 187 cm (6' 1.62) 08/10/2025 9:16 AM CONSTRUCTION OPERATIONS MANAGER Body Mass Index 29.65 08/10/2025 9:16 AM CONSTRUCTION OPERATIONS MANAGER Plan of Treatment Health Maintenance Due Date Last Done Comments Albumin Creatinine Ratio, Urine 1958 Colon Cancer Screening-Colonoscopy 1958 Depression Screening 1958 Hepatitis C Screening 1958 Prostate Cancer Screening-PSA 1958 Dilated Eye Exam 1958 Foot Exam 1958 Hepatitis B Screening 1976 Pneumococcal vaccine 65+ (1 of 2 - PCV) 1977 Well Visit 65+ 2023 Covid-19 Vaccine (3 - 2024-2 6 season) 2025 03/08/2021, 02/08/2021 Influenza Vaccine (#1) 2025 , 07/26/2023, 09/27/2017 Hemoglobin A1C 07/24/2025 01/22/2025, 11/23/2014 Lung Cancer Screening 12/23/2025 12/22/2024, 024 Fall Risk Assessment 01/31/2026 01/31/2025 eGFR 02/03/2026 02/03/2025, 03/2025, 01/30/2025, Additional history exists Lipid Panel 06/11/2026 06/11/2025, 06/27, 07/10/2023, Additional history exists DTaP/Tdap/Td Vaccine (2 - Td or Tdap) 02/04/2033 02/04/2023 Zoster Vaccine Completed 11/23/2023, 09/14/2023 Abdominal Aortic Aneurysm (A AA) Screen Completed 05/11/2025, 01/18/2025 Medical Devices Implanted Type Area Golf Ball Inspector Device Identifier Shelf Expiration Date Model / Serial / Lot [employer] Vascular System Closure Repair Femoral Artery Suture Mediated Perclose Prostyle 50672-82 - Sn/A - [id number] Implanted:Qty: 1 on 01/23/2025 by Aleksander Power MD at [facility] Other - see comments Left: Femoral [employer] Vascular 10/27/2026 11830-36 / N/A / [id number] [employer] Vascular System Closure Repair Femoral Artery Suture Mediated Perclose Prostyle 63714-11 - Sn/A - [id number] Implanted:Qty: 1 on 01/23/2025 by Aleksander Power MD at [facility] Other - see comments Left: Femoral [employer] Vascular 10/27/2026 27337-06 / N/A / [id number] Procedures Procedure Name Priority Date/Time Associated Diagnosis [...] ORDERABLES Final R esult Performing Organization Address City/[facility] Co de Phone Number [facility] [address] Department [place] [address] * (ABNORMAL) Hemoglobin A1c (01/22/2025 11:02 AM CDT) Hgb A1C 9.9(H) 4.0 - 5.6 % Estimated Average Glucose 237 mg/dL [facility] Comment: The ADA recommends reporting an estimated Average Glucose (eAG) with all Hemoglobin A1c results using the equation derived from a study of 507 normal and diabetic adults. Minority populations were underrepresented and children were not included. (Diabetes Care 31:1963-0713, 2008). The eAG is not equivalent to a fasting glucose. Blood 01/22/2025 11:0 2 AM CDT 01/22/2025 11:08 AM CDT Hitesh Schroeder MD LAB BLOOD ORDERABLES Final R esult Performing Organization Address City/[facility] Co de Phone Number [facility]NA [address] [facility] Department [place] [address] * CTA Abdominal Aorta And Bilateral Iliofemoral Runoff (01/18/2025 3:58 PM CDT) Anatomical Region Laterality Modality Body Bilateral Computed Tomogra phy 01/18/2025 4:56 PM CDT Narrative 01/18/2025 5:30 PM CDT EXAM DESCRIPTION: CTA ABDOMINAL AORTA AND BILATERAL ILIOFEMORAL RUNOFF REASON FOR STUDY: R foot necrosis and infection, concern for PAD, eval for arterial occlusion Pt sent to ED by Dr. Darling, pt has known infection to right great toe, since last Wednesday, now worsening. Drainage from toe. Pt has fevers chills. TECHNIQUE: CTA of the abdominal aorta with bilateral lower extremity runoff was performed without and with intravenous contrast using helical scanning technique. Precontrast and arterial images were obtained of the lower extremities. Images reviewed with soft tissue and bone windows. Reconstructed coronal and sagittal MPR images reviewed. All images stored on PACS. 3D MIP images rendered on scanning unit and reviewed at time of interpretation. Automated exposure control was used as a dose optimization technique for this examination. CONTRAST TYPE/DOSE: 100mL of IOVERSOL 350 MG IODINE/ML INTRAVENOUS SYRINGE injected via intravenous COMPARISON: None FINDINGS: VASCULATURE: NON-CONTRASTED IMAGING: Extensive vascular calcifications are seen all the way from the upper abdominal aorta down to the calf arteries. ABDOMINAL AORTA: No dissection, aneurysm, intramural hematoma, rupture, or penetrating atherosclerotic ulcer. MESENTERIC/RENAL: The celiac axis and superior mesenteric artery are widely patent. There is at least an approximately 50% stenosis of the right renal artery near the origin. I suspect a possibly greater than 70% stenosis of the left renal artery proximally. The inferior mesenteric artery is not clearly seen on this exam and is probably occluded. PELVIC VASCULATURE: Common/external iliac arteries: There are severe calcific stenoses of both common iliac arteries, probably greater than 70%. Internal iliac arteries: Severe calcific stenoses are seen in both internal iliac arteries.. RIGHT LOWER EXTREMITY VASCULATURE: There is an approximately 50% calcific stenosis in the proximal right superficial femoral artery. Multiple calcific stenoses are seen along the entire extent of the superficial femoral artery. There is a severe calcific stenosis of the popliteal artery. The anterior tibial artery is patent to the ankle. There are multiple segments of occlusion of the posterior tibial and peroneal arteries. LEFT LOWER EXTREMITY VASCULATURE: Multiple severe calcific stenoses are seen in the superficial femoral artery. The popliteal artery is patent. The anterior tibial artery is patent to the ankle. Several high-grade stenoses are seen in the posterior tibial artery. The peroneal artery is patent to the ankle. ABDOMEN/PELVIS: LOWER CHEST: A few thin walled cysts at the right lung base may be due to emphysema. LIVER: Normal size. No identified cystic or solid masses. No cysts. GALLBLADDER: No stones identified. No wall thickening or inflammatory changes. BILE DUCTS: No intrahepatic or extrahepatic ductal dilatation. SPLEEN: Normal size. No focal lesions. PANCREAS: No identified cystic or solid masses. No significant calcifications. No adjacent inflammation or peripancreatic fluid collections. Pancreatic duct not dilated. ADRENALS: Normal. KIDNEYS/URINARY TRACT: Both kidneys function. A 1.7 x 4 cm elongated area of low attenuation in the left kidney posteriorly may represent a cyst. Ultrasound is recommended. The left upper ureter appears to be enlarged. I am uncertain as to whether this represents slight dilatation or a ureteral mass. No hydronephrosis was seen. Normal bladder. GI: No bowel obstruction or inflammatory bowel disease was seen. PERITONEUM: No ascites or free air. RETROPERITONEUM: No mass or adenopathy. REPRODUCTIVE: No significant abnormality. MUSCULOSKELETAL: There is destructive change in the distal phalanx of the right great toe. Recent fracture of that phalanx may be pathologic. Soft tissue fullness is seen adjacent to the distal phalanx of the right great toe. This might represent cellulitis or even soft tissue abscess. There is destructive arthritis in the tarsometatarsal joint of the 5th toe of the right foot. This is not completely evaluated on this exam. OTHER: No other abnormality. IMPRESSION: 1. Arthritis, possibly destructive involving the 5th tarsometatarsal joint of the right foot. X-rays of the right foot are recommended. 2. Suspect osteomyelitis of the distal phalanx of the right great toe with a pathologic fracture. 3. Possible thickening of the upper left ureter. A CT IVP is recommended to make certain there is no urothelial neoplasm. 4. Suspect a greater than 70% stenosis of the right common iliac artery. There are multiple stenoses along the entire right superficial femoral artery. There is also probably a severe stenosis of the right popliteal artery. Vascular surgical consultation is recommended. 5. Suspect a greater than 70% stenosis of the left common iliac artery. Multiple severe calcific stenoses are seen in the left superficial femoral artery. THIS IS AN ELECTRONICALLY VERIFIED FINAL REPORT 01/18/2025 5:30 PM - Electronically signed by Camilo Armendariz M.D. BUBBA T: Report ID: [id number] Reading Location: [id number] Procedure Note Jaquan Armendariz MD - 01/18/2025 EXAM DESCRIPTION: CTA ABDOMINAL AORTA AND BILATERAL ILIOFEMORAL RUNOFF REASON FOR STUDY: R foot necrosis and infection, concern for PAD, evalfor arterial occlusion Pt sent to ED by Dr. Darling, pt has known infection to right great toe, since last Prate[place], now worsening. Drainage from toe. Pt has feverschills. TECHNIQUE: CTA of the abdominal aorta with bilateral lower extremityrunoff was performed without and with intravenous contrast using helicalscanning technique. Precontrast and arterial images were obtained of the lower extremities. Images reviewed with soft tissue and bone windows. Reconstructed coronal and sagittal MPR images reviewed. All images storedon PACS. 3D MIP images rendered on scanning unit and reviewed at time of interpretation. Automated exposure control was used as a doseoptimization technique for this examination. CONTRAST TYPE/DOSE: 100mL of IOVERSOL 350 MG IODINE/ML INTRAVENOUSSYRINGE injected via intravenous COMPARISON: None FINDINGS: VASCULATURE: NON-CONTRASTED IMAGING: Extensive vascular calcifications are seen allthe way from the upper abdominal aorta down to the calf arteries. ABDOMINAL AORTA: No dissection, aneurysm, intramural hematoma, rupture,or penetrating atherosclerotic ulcer. MESENTERIC/RENAL: The celiac axis and superior mesenteric artery arewidely patent. There is at least an approximately 50% stenosis of the rightrenal artery near the origin. I suspect a possibly greater than 70% stenosis ofthe left renal artery proximally. The inferior mesenteric artery is notclearly seen on this exam and is probably occluded. PELVIC VASCULATURE: Common/external iliac arteries: There are severe calcific stenoses ofboth common iliac arteries, probably greater than 70%. Internal iliac arteries: Severe calcific stenoses are seen in bothinternal iliac arteries.. RIGHT LOWER EXTREMITY VASCULATURE: There is an approximately 50%calcific stenosis in the proximal right superficial femoral artery. Multiplecalcific stenoses are seen along the entire extent of the superficial femoralartery. There is a severe calcific stenosis of the popliteal artery. The anterior tibial artery is patent to the ankle. There are multiple segments of occlusion of the posterior tibial and peroneal arteries. LEFT LOWER EXTREMITY VASCULATURE: Multiple severe calcific stenoses areseen in the superficial femoral artery. The popliteal artery is patent. The anterior tibial artery is patent to the ankle. Several high-gradestenoses are seen in the posterior tibial artery. The peroneal artery is patent tothe ankle. ABDOMEN/PELVIS: LOWER CHEST: A few thin walled cysts at the right lung base may be dueto emphysema. LIVER: Normal size. No identified cystic or solid masses. No cysts. GALLBLADDER: No stones identified. No wall thickening or inflammatory changes. BILE DUCTS: No intrahepatic or extrahepatic ductal dilatation. SPLEEN: Normal size. No focal lesions. PANCREAS: No identified cystic or solid masses. No significant calcifications. No adjacent inflammation or peripancreatic fluidcollections. Pancreatic duct not dilated. ADRENALS: Normal. KIDNEYS/URINARY TRACT: Both kidneys function. A 1.7 x 4 cm elongatedarea of low attenuation in the left kidney posteriorly may represent a cyst. Ultrasound is recommended. The left upper ureter appears to be enlarged.I am uncertain as to whether this represents slight dilatation or a ureteral mass. No hydronephrosis was seen. Normal bladder. GI: No bowel obstruction or inflammatory bowel disease was seen. PERITONEUM: No ascites or free air. RETROPERITONEUM: No mass or adenopathy. REPRODUCTIVE: No significant abnormality. MUSCULOSKELETAL: There is destructive change in the distal phalanx ofthe right great toe. Recent fracture of that phalanx may be pathologic. Soft tissue fullness is seen adjacent to the distal phalanx of the right greattoe. This might represent cellulitis or even soft tissue abscess. There is destructive arthritis in the tarsometatarsal joint of the 5th toe of theright foot. This is not completely evaluated on this exam. OTHER: No other abnormality. IMPRESSION: 1. Arthritis, possibly destructive involving the 5th tarsometatarsal joint of the right foot. X-rays of the right foot are recommended. 2. Suspect osteomyelitis of the distal phalanx of the right great toewith a pathologic fracture. 3. Possible thickening of the upper left ureter. A CT IVP is recommendedto make certain there is no urothelial neoplasm. 4. Suspect a greater than 70% stenosis of the right common iliac artery. There are multiple stenoses along the entire right superficial femoralartery. There is also probably a severe stenosis of the right popliteal artery. Vascular surgical consultation is recommended. 5. Suspect a greater than 70% stenosis of the left common iliac artery. Multiple severe calcific stenoses are seen in the left superficial femoral artery. THIS IS AN ELECTRONICALLY VERIFIED FINAL REPORT 01/18/2025 5:30 PM - Electronically signed by Camilo Armendariz M.D. BUBBA T: Report ID: [id number] Reading Location: [id number] us Jules Zapata MD IMG CT PROCEDURES Final Re sult * CT Chest WO Contrast F/U Lung [...] lung have resolved. CORONARY ARTERY CALCIFICATION: Dense [place]ata[place]ba coronary artery calcification. OTHER: Curvilinear scarring in [...] by Zane Novoa M.D. T: Report ID: [id number] Reading Location: [id number] Procedure Note Zane Novoa Jr., MD - [...] lung have resolved. CORONARY ARTERY CALCIFICATION: Dense [place] coronary arterycalcification. OTHER: Curvilinear scarring in the [...] by Zane Novoa M.D. T: Report ID: [id number] Reading Location: [place] [id number] us Abdulsalam Jamous MD IMG CT PROCEDURES Final Res ult * (ABNORMAL) [...] 03/13/2020 8:09 AM CDT Performed at: - Lab[address] [id number] Ticketing Clerk: Ammon Bustos PhD, Phone: [phone] us Eric Dong MD LAB BLOOD ORDERABLES Final R esult Performing Organization Address City/State/[facility] Co de Phone Number [facility] 01 from Last 3 Months or Most Recently Relevant to Health Maintenance Insurance [facility] MEDIC[facility] Address: [facility] [address] [place] [address] [facility] MEDICARE [facility] Address: [address] [place] [address] [facility] MEDICARE [facility] Address: [address] [address] [place] [address] Advance Directives For more information, please contact: [phone] Documents on File Type Date Recorded Patient Geological Sample Tester Expl anation ADVANCE DIRECTIVE 11/27/2014 12:00 AM POWER OF PATIENT FINANCIAL COUNSELOR FINANCIAL/MEDICAL * Full Code (Latest Code Status on File) Date Activated Date Inactivated Comments 01/18/2025 10:24 PM 01/31/2025 9:02 PM Care Teams Technician Support Engineer Relationship Specialty Start Date End Date Godfrey Abrams MD PCP - General Internal Medicine 06/15/18 Kyle Davey MD [address] [facility] [address] [address] Consulting Physician Vascular Surgery 01/31/25
--- OUTSIDE RECORDS SUMMARY | 2025-09-04 21:24 | XMS_ITS | Encounter Summary ---
Author Organization [facility] Facility Care Team Providers Care Engine Hostler Name Role Phone Godfrey Abrams MD Primary Care Provider [phone] Kyle Davey MD Unavailable [phone] Encounter Details Date Type Department Care Team (Latest Contact Info) Description 01/06/2017 Orders Only [facility] ProviderMaria De Jesus MD [address] [place] [address] Social History Tobacco Use Types Packs/Day Years Used Date Smoking Tobacco: Never Assessed Sex and Gender Information Value Date Recorded Sex Assigned at Not on file Legal Sex Male 10:16 AM CDC ASSOCIATE Gender Identity Not on file Sexual Orientation [...] on filedocumented in this encounter Care Teams Engine Hostler Relationship Specialty Start Date End Date Godfrey Abrams MD PCP - General Internal Medicine 06/15/18 Kyle Davey MD [address] [facility] [address] [place] [facility] [place] [address] Consulting Physician Vascular Surgery 01/31/25 documented as of this encounter
--- OUTSIDE RECORDS SUMMARY | 2025-09-04 21:24 | XMS_ITS | Clinical Summary ---
Author Organization [facility] Address [address] [place] [address] Care Team Providers Care Turnstile Collector Name Role Phone Godfrey Carvajal MD Primary Care Provider [phone] Allergies No known active allergies Medications cholecalciferol 125 MCG (5000 UT) TabIndications: Vitamin D Deficiency Take 1 tablet (125 mcg total) by mouth daily. Indications: Vitamin D Deficiency 06/15/20 17 Active B Mipsbwq-A-Laghh Acid (SM B SUPER VITAMIN COMPLEX OR)Indications: Nutritional Support Take 1 tablet by mouth daily. Indications: Nutritional Support Active polycarbophil (FIBER) 625 MG tablet 1 tablet (625 mg total) 3 (three) times daily. Active warfarin (COUMADIN) 5 MG tabletIndicatio ns:Acute embolism and thrombosis of deep vein of lower extremity, unspecified laterality (CMS/HCC HHS/HCC) TAKE 1 TABLET (5 MG TOTAL) BY MOUTH DAILY. 90 tablet 10/06/19 25 Active spironolactone (ALDACTONE) 25 MG tabletIndicatio ns:Benign essential hypertension TAKE ONE TABLET BY MOUTH DAILY 30 tablet 11/29/19 25 Active allopurinol (ZYLOPRIM) 300 MG tabletIndicatio [...] DAILY 90 tablet 3 03/06/20 25 Active Continuous Glucose Sensor (FREESTYLE ALYSSA 3 SENSOR) MiscIndications :Type 2 diabetes mellitus with diabetic peripheral angiopathy without gangrene, without long-term current use of insulin ([facility]) PLACE ONTO SKIN ONCE EVERY 14 DAYS DIRECTED 6 each 05/07/20 25 Active metoprolol succinate ER (TOPROL-XL) 50 MG 24 hr tabletIndicatio ns:Atrial flutter, unspecified type ([facility]),NSTEMI (non-ST elevated myocardial infarction) ([facility]) Take 1 tablet (50 mg total) by mouth daily. 90 tablet 3 06/29/20 25 Active atorvastatin (LIPITOR) 80 MG tabletIndicatio ns:Hyperlipidem ia Take 1 tablet (80 mg total) by mouth daily. Don't start new dose until after surgery 90 tablet 3 06/29/20 25 Active gabapentin (NEURONTIN) 600 MG tabletIndicatio ns:Polyneuropat hy associated with underlying disease ([facility]) TAKE ONE TABLET BY MOUTH DAILY WITH LUNCH DIRECTED 90 tablet 3 07/04/20 25 Active ASPIRIN 81 OR Take 1 tablet by mouth daily. 12/13/19 25 Active oxyCODONE immediate release (ROXICODONE) 5 MG immediate release tabletIndicatio ns:Acute Pain < 3 Day Supply Take 1 tablet (5 mg total) by mouth every 6 (six) hours as needed. Indications: Acute Pain < 3 Day Supply 12 tablet 07/20/20 25 Active ENTRESTO 24-26 MG tablet TAKE ONE TABLET BY MOUTH TWICE A DAY 180 tablet 08/07/20 25 Active sacubitril-vals patricia (ENTRESTO) 24-26 MG tablet TAKE ONE TABLET BY MOUTH TWICE A DAY 180 tablet 05/03/20 25 025 Discontinued Active Problems Problem Noted Date Diagnosed Date Cancer of left ureter 07/19/2025 Amputation of right great toe 02/14/2025 Multiple pulmonary nodules 08/09/2024 Interstitial pulmonary disease, unspecified 01/26 Polyneuropathy associated with underlying diseas e 08/23/2023 Hx of CABG 07/27/2023 Acute on chronic combined sy stolic and diastolic congestive heart failure 07/27/2023 History of arterial embolism 03/12/2023 Psychophysiological insomnia 07/08/2022 Periodic limb movement 07/08/2022 Nocturnal hypoxemia 07/08/2022 Nonrheumatic aortic valve stenosis 02/27/2022 Coronary stent patent 12/26/2021 Syncope 12/25/2021 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 Coronary artery disease of n ative artery of [place] heart with stable angina pectoris 03/23/2016 Overview (03/27/2020): Overview: Status post left circumflex artery stent in 1998 and obtuse marginal promus Premier stent on 02/22/2015 with 50% left anterior descending coronary artery stenosis, stable. Nicotine dependence 03/23/2016 Overview (11/19/2022): 5 cigarettes per day. Failed Chantix (bad dreams). Nicotine patches were not effective and caused headache. Vitamin D deficiency 05/08/2015 Atrial flutter 11/22/2014 Overview (03/27/2020): Overview: Persistent with rapid ventricular response with successful conversion to sinus rhythm on 11/18/2014 on warfarin anticoagulation. Remains in sinus rhythm, INRs Managed by Dr. Carvajal Peripheral neuropathy 07/24/2014 Obstructive sleep apnea 08/18/2013 Diabetes mellitus 11/22/2012 Acute embolism and thrombosi s of unspecified deep veins of unspecified lower extremity 05/23/2012 Benign essential hypertension 05/23/2012 Esophageal reflux 05/23/2012 Gout 05/23/2012 Hyperlipidemia 05/23/2012 Peripheral vascular disease 05/23/2012 Resolved Problems Problem Noted Date Diagnosed Date Resolved Date NSTEMI (non-ST elevated myoc ardial infarction) 07/09/2023 02/22/2024 CAD (coronary artery disease) 07/09/2023 02/22/2024 Cellulitis 02/04/2023 05/11/2023 Encounters Date Type Department Care Team Description 09/03/2025 Anti-Coag Telephone Call [facility], [address] [address] Hali Stephens RN Anticoagulation (protime) 08/27/2025 Anti-Coag Telephone Call [facility], [address] [address] Hali Stephens RN Anticoagulation (protime) 08/20/2025 Anti-Coag Telephone Call [facility], [address] [address] Hali Stephens, RN Anticoagulation (protime) 08/13/2025 Anti-Coag Telephone Call [facility], [address] [address] Hali Stephens RN Anticoagulation (protime) 08/07/2025 Results Follow-Up [facility] Family & Internal Medicine [address] [address] Godfrey Carvajal MD HOMOCYSTEINE, RETICULOCYTE CT, AUTO, IRON SAT PANEL (IRON,IBC,%SAT), Additional followed-up results: 2 08/06/2025 Anti-Coag Telephone Call [facility], [address] [address] Hali Stephens, RN Anticoagulation (protime) 08/06/2025 Orders Only [facility] MAIN BUSINESS OFFICE [address] [place] [phone] Neno Chavez MD 08/03/2025 10:20 AM RELATIONS SPECIALIST Laboratory Only [facility] Family & Internal [address] [phone] Godfrey Carvajal MD 08/03/2025 - 08/03/2025 11:59 PM RELATIONS SPECIALIST Hospital Encounter [facility] [address] Godfrey Carvajal MD Discharge Disposition: Home or Self Care (Routine Discharge) 08/03/2025 Travel 08/01/2025 Telephone [facility] Family Internal [address] [address] Godfrey Carvajal MD Lab Results 07/30/2025 Anti-Coag Telephone Call [facility] [address] Hali Stephens, RN Anticoagulation (protime) 07/26/2025 Anti-Coag Telephone Call [facility] [place] [phone] Hali Stephens RN Anticoagulation (protime) 07/24/2025 Scan [place] [facility] Scanned, [facility] 07/24/2025 Hospital Follow-up Call [facility] [place] [address] Juhi Islas LPN Follow Up Call (AISHA 07/19-07/23/25) 07/24/2025 Patient Outreach [facility] Internal [address] [phone] Jodi Ortiz RN TCM (AISHA d/c 07/23/25) 07/23/2025 Anti-Coag Telephone Call [facility] [address] [address] Miriam Grey, RN Anticoagulation (INR) 07/20/2025 Patient Outreach [facility] Internal [address] [address] Jodi Ortiz RN Hospital Follow Up (AISHA admission 07/19/25) 07/19/2025 7:30 AM CDT - 07/19/2025 12:00 PM CDT Surgery [facility] [address] Howie Leon MD ROBOTIC XI ASSISTED LEFT NEPHROURETERECTOMY;IN TRAVESICAL INSTILLATION OF GEMCITABINE 07/19/2025 7:30 AM CDT Anesthesia Event [facility] [address] Martinez Neves DO Jarvis, Brittany L, AUTOMATIC RIVETING MACHINE OPERATOR 07/19/2025 5:24 AM CDT - 07/23/2025 12:27 PM CDT Hospital Encounter [facility] Med/Surg 3rd [place] [address] Howie Leon MD Discharge Disposition: Home or Self Care (Routine Discharge) 07/19/2025 Travel 07/19/2025 Prep for Procedure [facility] [place] [address] Howie Leon MD 07/10/2025 Scan [facility] SR[facility]CS Scanned, [facility] 07/09/2025 Anti-Coag Telephone Call [facility] [address] [address] Miriam Grey, RN Anticoagulation (INR) 07/06/2025 Anti-Coag Telephone Call [facility] [address] [address] Miriam Grey, RN Anticoagulation (INR) 07/05/2025 9:58 AM CDT - 07/05/2025 11:10 AM CDT Hospital Encounter [facility] [place] [address] Howie Leno MD Discharge Disposition: Home or Self Care (Routine Discharge) 07/05/2025 Travel 07/04/2025 Anti-Coag Telephone Call [facility] [address] [address] Miriam Grey RN Anticoagulation (INR) 07/04/2025 Orders Only [facility] MAIN BUSINESS OFF[facility] [address] [place] [address] Neno Chavez MD 07/02/2025 MyChart Message Enc [facility] on [address] [address] Sarkis, [facility] Provider warfarin/lovenox instructions 07/02/2025 Anti-Coag Telephone Call [facility] [address] [address] Miriam Grey RN Anticoagulation (Warfarin/Lovenox instructions.) 06/29/2025 8:45 AM CDT Office Visit [facility] [address] Sahil Montes MD CHF (4mo) 06/29/2025 Travel 06/29/2025 Telephone [facility] [address] [address] Sahil Montes MD Surgical Clearance 06/20/2025 Scan [employer] INFO SRVCS Scanned, [facility] 06/20/2025 Anti-Coag Telephone Call [facility] [address] [address] Miriam Grey RN Anticoagulation (INR) 06/18/2025 Anti-Coag Telephone Call [facility] on [address] [place] [address] Miriam Grey RN Anticoagulation (INR) 06/14/2025 Scan [employer] [facility] Scanned, [facility] Image (SCAN); Procedure (SCAN); Lab (SCAN); Pathology (SCAN) 06/12/2025 Results Follow-Up [facility] & Internal [address] [phone] Alma Pham APNP HEMOGLOBIN, GLYCOSYLATED 06/12/2025 Results Follow-Up [facility] [phone] Consuelo Miles RN COMPREHENSIVE METABOLIC PANEL, LIPID PANEL 06/11/2025 1:40 PM CDT Office Visit [facility] & Internal [address] [phone] Godfrey Carvajal MD Follow Up; Hypertension; Diabetes; Hyperlipidemia; Obstructive Sleep Apnea ; Vitamin D Deficiency; Coronary Artery Disease; CHF; COPD; Finger (Pt c/o discoloration in fingers. ); Surgery (Pt is scheduled for kidney biopsy next week with Dr. Rhoades @ [facility]. ) 06/11/2025 1:00 PM CDT Laboratory Only [facility] Internal [address] [address] Godfrey Carvajal MD 06/11/2025 Travel 06/05/2025 Scan [employer] SR[facility] Scanned, [facility] Lab (SCAN) 06/05/2025 Telephone [facility], [address] [address] Sahil Montes MD Information ([facility] Pre-Admit Anesthisia) from Last 3 Months Immunizations Immunization Administration [...] often do you attend chur ch or anglican services? Never 02/04/2023 Do you belong to [...] Recorded Patient Health Questionnaire-2 Score 0 01/09/2025 [facility] Occupat ional Health - [...] place to sleep or slept in a residential (including now)? No 07/11/2023 Humiliation, Afraid, Rape, [...] and heating? Not hard at all 07/19/2025 [facility] [place] of Occupat ional Health - Occupational Stress [...] money to buy more. Never true 07/19/20 Within the past 12 months, t he [...] any time in the past 12 m [facility], were you homeless or living in a residential (including now)? No 07/19/2025 B1300 Health Literacy Answer Date Recor ded How often do you need to hav e someone help you when you read instructions, pamphlets, or other written material from your doctor or pharmacy? Rarely 07/19/2025 [facility] Utilities Answer Date Recorded In the [...] Sign Reading Time Taken Comments Blood Pressure 160/75 07/23/2025 11:20 AM CDT Pulse 58 07/23/2025 11:20 AM CDT Temperature 36.7 C (98.1 F) 07/23/2025 11:20 AM CDT Respiratory Rate 18 07/23/2025 11:2 0 AM CDT Oxygen Saturation 98% 07/23/2025 11: 20 AM CDT Inhaled Oxygen Concentration - - Weight 107.5 kg (236 lb 15.9 oz) 07/22/2025 5:51 AM CDT Height 185.4 cm (6' 1) 07/19/2025 6:15 AM CDT Body Mass Index 31.27 07/19/2025 6:15 AM CDT Plan of Treatment Upcoming Encounters Date Type Department Care Team (Late st Contact Info) Description 10/01/2025 10:20 AM RELATIONS SPECIALIST Office Visit [facility] Family & Internal Medicine - [address] [phone] Gdofrey Carvajal MD [address] [place] [address] 11/02/2025 9:00 AM RELATIONS SPECIALIST Office Visit [facility] [phone] Sahil Montes MD 3 [facility] [address] [place] [phone] Health Maintenance Due Date Last Done Comments Kidney Health Evaluation 1960 Hepatitis C 1976 RSV Immunization or 60+ Years (1 - Risk 60-74 years 1-dose series) 2018 Annual Medicare Wellness Visit 2023 COVID-19 Vaccine ( season) 2025 08/15/2024, 03/08/2021, 02/08/2021 Influenza Adult (#1) 2025 08/15/2024, 07/26/2023, 09/30/2021, Additional history exists Diabetes: Retinopathy Eye Exam 10/19/2025 10/19/2023, 10/09/2019 Hemoglobin A1C 12/09/2025 06/11/2025, 02/25, 01/22/2025, Additional history exists Lipid Panel 06/11/2026 06/11/2025, 06/27, 07/10/2023, Additional history exists DTaP, Tdap and Td Vaccines (2 - Td or Tdap) 02/04/2033 02/04/2023 Colorectal Cancer Screening Colonoscopy (10 Years) 12/19/2034 12/19/2024, 09/05/2015 Zoster Vaccines Completed 11/23/2023, 09/14/2023 PHQ-2 (Physician [place]) Completed 01/09/2025 Pneumococcal Vaccine: 50+ Years Completed 01/09/2025 AAA SCREENING Completed 05/11/2025, 12/27, 01/18/2025, Additional history exists Hepatitis A Vaccines Aged Out No long er eligible based on patient's age to complete this topic Meningococcal B Vaccine Aged Out No l [...] discharge planning Lifestyle No Tea Sepulveda RN Medical Devices Implanted Type Area Junior Bookkeeper Device Identifier Shelf Expiration Date Model / Serial / Lot Wire Sterum Suture Kit [employer] #7 09/28 Ccs-1 - [id number] Implanted:Qty: 1 on 07/12/2023 by Sarthak Zhao RNFA at [facility] Wire N/A: Sternum [employer] 04/27/2027 [id number] / / [id number] Description:2 Wires implante d Wire Sternotomy Suture Kit - [id number] Implanted:Qty: 1 on 07/12/2023 by Sarthak Zhao RNFA at [facility] N/A: Sternum [employer] 10/28/2027 [id number] / / [id number] Description:5 wires implante d Procedures Procedure Name Priority Date/Time Associated Diagnosis Comments MD REVIEW,HOME INR TEST Routine 09/03/2025 3:11 PM RELATIONS SPECIALIST MD REVIEW,HOME INR TEST Routine 08/27/2025 3:21 PM RELATIONS SPECIALIST MD REVIEW,HOME INR TEST Routine 08/20/2025 2:29 PM RELATIONS SPECIALIST MD REVIEW,HOME INR TEST Routine 08/13/2025 1:10 PM RELATIONS SPECIALIST MD REVIEW,HOME INR TEST Routine 08/06/2025 2:39 PM RELATIONS SPECIALIST CBC W/DIFF AUTOMATED Routine 08/03/2025 11:41 AM RELATIONS SPECIALIST Anemia MTHFR mutation FERRITIN Routine 08/03/2025 11:41 AM RELATIONS SPECIALIST Anemia MTHFR mutation IRON SAT PANEL (IRON,IBC,%SAT) Routine 08/03/2025 11:41 AM RELATIONS SPECIALIST Anemia MTHFR mutation RETICULOCYTE CT, AUTO Routine 08/03/2025 11:41 AM RELATIONS SPECIALIST Anemia MTHFR mutation HOMOCYSTEINE Routine 08/03/2025 11:41 AM RELATIONS SPECIALIST Anemia MTHFR mutation COLLECTION VENOUS BLOOD VENIPUNCTURE Routine 08/03/2025 10:48 AM RELATIONS SPECIALIST Anemia MTHFR mutation MD REVIEW,HOME INR TEST Routine 07/30/2025 2:38 PM RELATIONS SPECIALIST MD REVIEW,HOME INR TEST Routine 07/26/2025 1:16 PM CDT HC CBC AUTO W/AUTO DIFF Routine 07/23/2025 6:58 AM CDT HC BASIC METABOLIC PANEL Routine 07/23/2025 6:58 AM CDT HC PROTHROMBIN TIME (PT) Routine 07/23/2025 6:58 AM CDT HC CBC AUTO W/AUTO DIFF Routine 07/22/2025 5:45 AM CDT HC BASIC METABOLIC PANEL Routine 07/22/2025 5:45 AM CDT HC PROTHROMBIN TIME (PT) Routine 07/22/2025 5:45 AM CDT HC PROTHROMBIN TIME (PT) Routine 07/21/2025 4:40 AM CDT HC CBC AUTO W/AUTO DIFF Routine 07/21/2025 4:40 AM CDT HC BASIC METABOLIC PANEL Routine 07/21/2025 4:40 AM CDT HC PROTHROMBIN TIME (PT) Routine 07/20/2025 4:50 AM CDT HC CBC AUTO W/AUTO DIFF Routine 07/20/2025 4:50 AM CDT HC BASIC METABOLIC PANEL Routine 07/20/2025 4:50 AM CDT HEMOGLOBIN AND HEMATOCRIT Routine 07/19/2025 11:52 AM CDT BASIC METABOLIC PANEL Routine 07/19/2025 11:52 AM CDT POCT GLUCOSE - DOCKED DEVICE Routine 07/19/2025 11:47 AM CDT ART LINE PLACEMENT Routine 07/19/2025 8:09 AM CDT INSTILL ANTICANCER AGENT IN BLADDER 07/19/2025 7:30 AM CDT MALIGNANT NEOPLASM OF LEFT URETER C66.2 Case Notes SCHED BY FAX ON 06/27/25 JDK PRETEST ON 07/05 AT 1000CASE MUST BE IN OR9 ON THE PAIRING ROBOTREQUESTED 4 HOURS NEPHRECTOMY, W/PART. URETECTOMY 07/19/2025 7:30 AM CDT MALIGNANT NEOPLASM OF LEFT URETER C66.2 Case Notes SCHED BY FAX ON 06/27/25 JDK PRETEST ON 07/05 AT 1000CASE MUST BE IN OR9 ON THE PAIRING ROBOTREQUESTED 4 HOURS POCT GLUCOSE - DOCKED DEVICE Routine 07/19/2025 6:54 AM CDT PROTHROMBIN TIME STAT 07/19/2025 6:50 AM CDT Malignant neoplasm of left ureter (CMS/HCC HHS/HCC) Acquired hypercoagulable state (HHS/HCC) Hematuria, unspecified type Atrial flutter, unspecified type (CMS/HCC HHS/HCC) Acute embolism and thrombosis of deep vein of lower extremity, unspecified laterality (CMS/HCC HHS/HCC) Other iron deficiency anemia PATHOLOGY Routine 07/19/2025 12:00 AM CDT MD REVIEW,HOME INR TEST Routine 07/09/2025 1:22 PM CDT MD REVIEW,HOME INR TEST Routine 07/06/2025 1:45 PM CDT TYPE & SCREEN Routine 07/05/2025 10:50 AM CDT Preop examination HC CBC AUTO W/AUTO DIFF STAT 07/05/2025 10:50 AM CDT Preop examination MRSA SCREENING Routine 07/05/2025 10:08 AM CDT Malignant neoplasm of left ureter (CMS/HCC HHS/HCC) HC CULTURE URINE W/COLONY CT Routine 07/05/2025 10:08 AM CDT Malignant neoplasm of left ureter (CMS/HCC HHS/HCC) MD REVIEW,HOME INR TEST Routine 07/04/2025 1:35 PM CDT ELECTROCARDIOGRAM (NON MIDMARK ACQUIRED) Routine 06/29/2025 8:54 AM CDT Peripheral vascular disease MD REVIEW,HOME INR TEST Routine 06/20/2025 1:44 PM CDT MD REVIEW,HOME INR TEST Routine 06/18/2025 12:52 PM CDT PATHOLOGY GENERIC (SCAN ORDER) 06/14/2025 OUTSIDE LAB (SCAN ORDER) 06/14/2025 OUTSIDE PT/INR (SCAN ORDER) 06/14/2025 IMAGE GENERIC 06/14/2025 PROCEDURE GENERIC (SCAN ORDER) 06/14/2025 COLLECT.CAPILLARY (FNGR,HEEL,EAR) Routine 06/11/2025 1:52 PM CDT Type 2 diabetes mellitus with diabetic peripheral angiopathy without gangrene, without long-term current use of insulin ([facility] HHS/HCC) COLLECTION VENOUS BLOOD VENIPUNCTURE Routine 06/11/2025 1:25 PM CDT Coronary artery disease of [place] artery [place] heart with stable angina pectoris Benign essential hypertension Atrial flutter, unspecified type ([facility] HHS/HCC) LIPID PANEL Routine 06/11/2025 1:25 PM CDT Coronary artery disease of [place] artery [place] heart with stable angina pectoris Benign essential hypertension Atrial flutter, unspecified type ([facility] HHS/HCC) COMPREHENSIVE METABOLIC PANEL Routine 06/11/2025 1:25 PM CDT Coronary artery disease of [place] artery [place] heart with stable angina pectoris Benign essential hypertension Atrial flutter, unspecified type ([facility] HHS/HCC) HEMOGLOBIN, GLYCOSYLATED Routine 06/11/2025 Type 2 diabetes mellitus with diabetic peripheral angiopathy without gangrene, without long-term current use of insulin ([facility] HHS/HCC) OUTSIDE PT/INR (SCAN ORDER) 06/05/2025 CT ABD+PEL WO CON JAXSON 05/11/2025 8:48 AM CDT Gross hematuria COLONOSCOPY GENERIC (SCAN ORDER) 12/19/2024 DIABETIC RETINOPATHY EXAM (NEGATIVE)(SCAN ORDER) Routine 10/19/2023 from Last 3 Months or Most Recently Relevant to Health Maintenance Results * MD REVIEW,HOME INR TEST (09/03/2025 3:11 PM RELATIONS SPECIALIST) Only the most recent of12 resultswithin the time period is included. INR WHOLE BLOOD 2.3 2.000 - 3.000 ALERE HOME MONITORING DEVICE 09/03/2025 3:11 PM RELATIONS SPECIALIST us Neno Chavez MD LABORATORY Final Resul t ALERE HOME MONITORING DEVICE * IRON SAT PANEL (IRON,IBC,%SAT) (08/03/2025 11:41 AM RELATIONS SPECIALIST) IRON 81 65 - 175 MCG/DL 08/03/2025 4:13 PM RELATIONS SPECIALIST [facility] IRON BINDING CAPACITY 312 250 - 450 MCG/DL 08/03/2025 4:13 PM RELATIONS SPECIALIST [facility] IRON SATURATION 26 % 4:13 PM RELATIONS SPECIALIST [facility] Comment:REFERENCE RANGE NOT ESTABLISHED 08/03/2025 11:4 1 AM RELATIONS SPECIALIST us Godfrey Carvajal MD LABORATORY Final Result [facility] [address] [place] [address], [place] [phone] * (ABNORMAL) RETICULOCYTE CT, AUTO (08/03/2025 11:41 AM RELATIONS SPECIALIST) Pathologist [facility] RETICULOCYTE COUNT 2.4(H) 0.7 - 2.3 % 08/03/2025 6:55 PM RELATIONS SPECIALIST [facility] ABSOLUTE RETICULOCYTE 0.08 0.03 - 0.11 x10'6/uL 08/03/2025 6:55 PM RELATIONS SPECIALIST [facility] IMMATURE RETIC FRACTION 11.7 2.3 - 13.4 % 08/03/2025 6:55 PM RELATIONS SPECIALIST [facility] RETIC HGB 37.9(H) 28.0 - 35.0 PG 08/03/2025 6:55 PM RELATIONS SPECIALIST [facility] 08/03/2025 11:4 1 AM RELATIONS SPECIALIST us Godfrey Carvajal MD LABORATORY Final Result [facility] [address] [place] [address], [place] [phone] [id number] * (ABNORMAL) CBC W/DIFF AUTOMATED (08/03/2025 11:41 AM RELATIONS SPECIALIST) Only the most recent of6 resultswithin the time period is included. WBC 10.70 4.00 - 10.80 x10'3/uL 08/03/2025 3:40 PM [facility] RBC 3.44(L) 4.50 - 6.10 x10'6/uL 08/03/2025 3:40 PM [facility] HGB 11.1(L) 13.0 - 18.0 G/DL 08/03/2025 3:40 PM [facility] HCT 33.9(L) 37.0 - 52.0 % 08/03/2025 3:40 PM [facility] MCV 98.5 78.0 - 100.0 FL 08/03/2025 3:40 PM [facility] MCH 32.3(H) 27.0 - 31.0 PG 08/03/2025 3:40 PM [facility] MCHC 32.7(L) 33.0 - 36.0 G/DL 08/03/2025 3:40 PM [facility] RDW 15.7(H) 11.5 - 14.5 % 08/03/2025 3:40 PM [facility] PLT 319 150 - 350 x10'3/uL 08/03/2025 3:40 PM [facility] MPV 10.9(H) 7.4 - 10.4 FL 08/03/2025 3:40 PM [facility] DIFFERENTIAL TYPE AUTOMATED DIFFERENTIAL 08/03/2025 3:40 PM [facility] NEUTROPHILS % 70.0 % 08/03/2025 3:40 PM [facility] LYMPHOCYTES % 19.4 % 08/03/2025 3:40 PM [facility] MONOCYTES % 6.4 % 08/03/2025 3:40 PM [facility] EOSINOPHILS % 3.3 % 08/03/2025 3:40 PM RELATIONS SPECIALIST [facility] BASOPHILS % 0.5 % 08/03/2025 3:40 PM RELATIONS SPECIALIST [facility] IMMATURE GRANS % 0.4 % 08/03/2025 3:40 PM RELATIONS SPECIALIST [facility] ABS. NEUTROPHILS 7.50 1.60 - 8.30 x10'3/uL 08/03/2025 3:40 PM RELATIONS SPECIALIST [facility] ABS. LYMPHOCYTES 2.08 0.80 - 4.70 x10'3/uL 08/03/2025 3:40 PM RELATIONS SPECIALIST [facility] ABS. MONOCYTES 0.68 0.00 - 1.50 x10'3/uL 08/03/2025 3:40 PM RELATIONS SPECIALIST [facility] ABS. EOSINOPHILS 0.35 0.00 - 0.40 x10'3/uL 08/03/2025 3:40 PM RELATIONS SPECIALIST [facility] ABS. BASOPHILS 0.05 0.00 - 0.20 x10'3/uL 08/03/2025 3:40 PM RELATIONS SPECIALIST [facility] ABS. IMMATURE GRANULOCYTES 0.04(H) 0.00 - 0.03 x10'3/uL 08/03/2025 3:40 PM RELATIONS SPECIALIST [facility] 08/03/2025 11:4 1 AM RELATIONS SPECIALIST Godfrey Carvajal MD LABORATORY Final Result [facility] [address] [place] [address], * (ABNORMAL) HOMOCYSTEINE (08/03/2025 11:41 AM RELATIONS SPECIALIST) Pathologist [facility] [place] HOMOCYSTEINE S/P/B 16(H) 3 - 11 MCMOL/L 08/03/2025 10:20 PM RELATIONS SPECIALIST [facility] HOMOCYSTINE NORMALS NORMAL LEVEL IS LESS THAN OR EQUAL TO 9 08/03/2025 11:41 AM RELATIONS SPECIALIST [facility] Comment: MILD IS 10 TO 15 UMOL/L MODERATE IS 16 TO 30 UMOL/L MODERATE TO SEVERE IS 31 TO 100 UMOL/L SEVERE IS GREATER THAN 100 UMOL/L 08/03/2025 11:4 1 AM RELATIONS SPECIALIST us Godfrey Carvajal MD LABORATORY Final Result Performing Organization Address City/[facility] Co de Phone Number [facility] [address] [place] [address], [phone] * FERRITIN (08/03/2025 11:41 AM RELATIONS SPECIALIST) FERRITIN 78.9 26.0 - 388.0 NG/ML 08/03/2025 9:33 PM RELATIONS SPECIALIST [facility] 08/03/2025 11:4 1 AM RELATIONS SPECIALIST us Godfrey Carvajal MD LABORATORY Final Result Performing Organization Address [facility] de Phone Number [facility] [address] [place] [address], [phone] * PROTIME/INR, VENOUS (07/23/2025 6:58 AM CDT) Only the most recent of5 resultswithin the time period is included. PROTIME 12.5 10.2 - 12.9 SEC 07/23/2025 7:58 AM CDT [facility] INR 1.1 07/23/2025 7:58 AM CDT [facility] Comment: Recommended INR Therapeutic Goals: 2.0-3.0 Routine Therapy 2.5-3.5 Mechanical Prosthetic Valves (High Risk) 07/23/2025 6:58 AM CDT us Darlyn S Petty TSA SCREENER LABORATORY Final Result [facility] [address] [place] [address], * (ABNORMAL) BASIC METABOLIC PANEL (07/23/2025 6:58 AM CDT) Only the most recent of5 resultswithin the time period is included. GLUCOSE 135(H) 70 - 99 MG/DL 07/23/2025 7:53 AM CDT [facility] BUN 29(H) 7 - 18 MG/DL 07/23/2025 7:53 AM CDT [facility] CREATININE S/P/B 2.34(H) 0.7 - 1.3 MG/DL 07/23/2025 7:53 AM CDT [facility] SODIUM S/P/B 142 136 - 145 MMOL/L 07/23/2025 7:53 AM CDT [facility] POTASSIUM S/P/B 4.6 3.5 - 5.1 MMOL/L 07/23/2025 7:53 AM CDT [facility] CHLORIDE S/P/B 112 97 - 115 MMOL/L 07/23/2025 7:53 AM CDT [facility] CO2 26.9 21 - 32 MMOL/L 07/23/2025 7:53 AM CDT [facility] CALCIUM S/P/B 9.2 8.5 - 10.1 MG/DL 07/23/2025 7:53 AM CDT [facility] ANION GAP 3.1 2 - 10 MMOL/L 07/23/2025 7:53 AM CDT [facility] BUN CREATININE RATIO 12.4 6 - 26 07/23/2025 7:53 AM CDT [facility] GFR ESTIMATE 30(L) >90 ML/MIN/1.7 3 M2 07/23/2025 7:53 AM CDT [facility] Comment: NOTE: eGFR is not calculated for patients <18 years of age or gender unknown. This is an estimated GFR calculation using the new CKD EPI creatinine equation without race and so does not require a correction factor for race. This estimated GFR should not be used for calculating drug doses. 07/23/2025 6:58 AM CDT Keny Meza MD LABORATORY Final Result Performing Organization Address City/[facility] Co de Phone Number [facility] [address] [place] [address], * (ABNORMAL) HEMOGLOBIN AND HEMATOCRIT (07/19/2025 11:52 AM CDT) HGB 11.4(L) 14.0 - 18.0 G/DL 07/19/2025 12:08 PM CDT [facility] HCT 33.7(L) 43.0 - 54.0 % 07/19/2025 12:08 PM CDT [facility] 07/19/2025 11:5 2 AM CDT Howie Leon MD LABORATORY Final Result Performing Organization Address City/[facility] Co de Phone Number [facility] [address] [place] [address], [place] [phone] * (ABNORMAL) POCT glucose (07/19/2025 11:47 AM CDT) Only the most recent of2 resultswithin the time period is included. GLUCOSE POC 176(H) 70 - 99 mg/dL 07/19/2025 11:50 AM CDT [facility] 07/19/2025 11:4 7 AM CDT Howie Leon MD POCT ORDERABLES - DEVICE Final Result [facility] [address] [place] [address], [place] [phone] * Art Line (07/19/2025 8:09 AM CDT) Narrative Martinez Neves DO - 07/19/2025 8:09 AM CDT Martinez Neves DO 07/19/2025 8:10 AM Art Line Date/Time: 07/19/2025 8:09 AM Performed by: Martinez Neves DO Authorized by: Martinez Neves DO Patient Location: OR Size: 20 Orientation: Right Location: Radial Site Prep: Chlorhexadine Local Anesthetic: None Insertion Attempts: 3 Ultrasound-guided Placement: Yes Ultrasound was used to identify the vessel. It was assessed and patent. Ultrasound was used to visualized vascular needle entry into the vessel and The selected vessel appeared anatomically normal and there were no apparent abnormal findings Secure Method: Taped Patient Tolerance: Tolerated well Martinez Neves DO MD ANESTHESIA Final Result * Pathology (07/19/2025 12:00 AM CDT) PATHOLOGY [facility] Department of Laboratory Medicine [address] [place] [phone] , extension [phone] Pathology Report Surgical Pathology Report Name: NATAN JARA Specimen #: [id number] Age: 2 1960 (Age: 64) Location: [facility] Sex: M Procedure Date: 07/19/2025 Hospital #: [id number] Date Received: 07/19/2025 Date Reported: 07/23/2025 Provider: HOWIE LEON MD Source: A: Soft tissue, renal hilar B: Left kidney, left ureter Clinical History: Outside biopsy of left ureter showed noninvasive high-grade papillary urothelial carcinoma. FINAL DIAGNOSIS: A. Lymph nodes, hilar, dissection: - Multiple, 4, lymph nodes are negative for malignancy. B. Kidney and ureter, left, nephroureterectomy: - Noninvasive high-grade papillary urothelial carcinoma involving proximal ureter and ureteropelvic junction. 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 SYNOPTIC REPORT Standard(s): AJCC-UICC 8 SPECIMEN Specimen, Laterality, Procedure: Left nephroureterectomy TUMOR Tumor Site: Ureter and ureteropelvic junction Tumor Size: 3.0 cm papillary (ureter) and 1.4 cm papillary (ureteropelvic junction) Histologic Type: Noninvasive papillary urothelial carcinoma and urothelial carcinoma in situ Histologic Grade: High grade Tumor Extent: Noninvasive papillary carcinoma and carcinoma in situ Lymphatic and/or Vascular Invasion: Not identified MARGINS Margin Status for Invasive Carcinoma: Not applicable Margin Status for Carcinoma in Situ / Noninvasive Papillary Urothelial Carcinoma: All margins negative for carcinoma in situ/noninvasive papillary urothelial carcinoma REGIONAL LYMPH NODES Regional Lymph Node Status: All regional lymph nodes negative for tumor Number of Lymph Nodes Examined: 4 DISTANT METASTASIS Not applicable ADDITIONAL FINDINGS Renal cyst, 1.5 cm COMMENTS No additional comments PATHOLOGIC STAGE CLASSIFICATION (pTNM, AJCC 8th Edition) 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 Received in formalin, labeled with a patient label and as hilar tissue are multiple pieces of soft tissue, 3 x 2.5 x 1 cm in aggregate. The specimen is dissected for lymph nodes. 2 disrupted probable nodes, 0.8 and 1.0 cm, are identified. The remaining tissue is somewhat firm, but no other discrete nodes are identified. The specimen is entirely submitted as follows: A1 2 lymph nodes, one inked black and the other not inked and each bisected A2 and A3 remainder of specimen. B. Received in formalin, labeled with a patient label and as left kidney and left ureter is a 20 x 12 x 6 cm specimen consisting of a kidney with attached adipose tissue. An adrenal gland is not identified. The renal artery and renal vein are identified at the hilum. Both appear free of tumor. A 24 cm long segment of ureter is identified at the hilum. It has a diameter of 0.30.4 cm. A small amount of bladder cuff tissue is identified at the distal end. The outer surfaces of the ureter and the hilar soft tissue are inked black. The ureter is opened, and the specimen is bisected to reveal that the kidney is 11 x 6 x 5 cm. TUMOR There are 2 lesions in the ureter. Lesion #1 is a papillary white-meade lesion in the proximal ureter. The lesion is 3.0 by 1.1 x 1.0 cm. On section, the cut surface is papillary and white-meade. The lesion does not appear to involve the entire thickness of the ureter wall or to extend into the adjacent tissue. Lesion #2 is a papillary white-meade lesion located 2 cm proximal to lesion #1, in the region of the ureteropelvic junction. This lesion is 1.4 x 0.8 x 0.5 cm. On section, the cut surface is papillary and white-meade. The lesion does not appear to involve the entire thickness of the ureter wall or to extend into the adjacent adipose tissue. MARGINS Lesion #1 is 18 cm from the distal ureter margin. It is 7 cm from the vascular margins. On section, it does not involve the black inked surface. Lesion #2 is 20 cm from the distal ureter margin. It is 5 cm from the vascular margins. On section, it does not involve the black inked surface. REGIONAL LYMPH NODES No hilar lymph nodes are identified. OTHER The uninvolved mucosa is white meade and smooth. No additional lesions are identified. The uninvolved renal parenchyma is red-meade. The cortex has an average thickness of 0.9 cm and the medulla has an average thickness of 1 cm. A 1.5 cm cyst is identified in the posterior kidney. No parenchymal mass lesions are identified. BLOCK SUMMARY Territory Sales Manager tissue is submitted as follows: B1 distal ureter/bladder cuff margin B2 distal ureter B3 mid ureter B4 through B6 lesion #1 B7 lesion #2 B8 inferior renal pelvis B9 superior renal pelvis B10 cyst from posterior kidney B11 renal parenchyma B12 vascular margins. Gross examination (when applicable), interpretation, and sign out were performed at [facility], [address] [place] [address]. Electronically Signed Out SANDEE FLORES MD [facility] TISSUE (OTHER (TYPE IN COMMENTS)) 07/19/2025 9:27 AM CDT us Howie Leon MD PATHOLOGY/CYTOLOGY ORDERABLES F inal Result [facility] [address] [place] [address], [phone] * TYPE & SCREEN (07/05/2025 10:50 AM CDT) UNITS ORDERED 1 07/19/2025 8:21 AM CDT [facility] ABO/RH O NEGATIVE 07/05/2025 11:53 AM CDT [facility] ANTIBODY SCREEN NEGATIVE 12:03 PM CDT [facility] SAMPLE EXPIRATION 07/22/2025,23 59 07/19/2025 7:13 AM CDT [facility] BB COMMENT NO HISTORY OF TRANSFUSIONS, OR ANTIBODIES, NEW SPECIMEN NOT NEEDED 07/19/2025 7:13 AM CDT [facility] BLOOD UNIT NUMBER [id number] 07/19/2025 8:21 AM CDT [facility] PRODUCT: PC LEUKOPOOR 07/19/2025 8:21 AM CDT [facility] UNIT DIVISION 00 07/19/2025 8:21 AM CDT [facility] BLOOD UNIT STATUS UNIT RELEASED 07/22/2025 6:36 AM CDT [facility] TRANSFUSION STATUS OK TO TRANSFUSE 07/19/2025 8:21 AM CDT [facility] CROSSMATCH COMPATIBLE-EX M 07/19/2025 8:21 AM CDT [facility] 07/05/2025 10:5 0 AM CDT Evelyn Leos CNP BLOOD BANK TEST ORDERABLES Final Result [facility] [address] [place] [address], [place] [phone] * MRSA SCREENING (07/05/2025 10:08 AM CDT) SPEC DESCRIPTION NASAL 07/05/2025 10:02 AM CDT [facility] SPECIAL REQUESTS NO SPECIAL REQUEST 07/05/2025 10:02 AM CDT [facility] CULTURE RESULT NO METHICILLIN RESISTANT STAPHYLOCOCCUS AUREUS ISOLATED 07/06/2025 6:42 AM CDT [facility] SPECIMEN FROM INTERNAL NOSE / Unknown 07/05/2025 10:08 AM CDT 07/05/2025 10:09 AM CDT Howie Leon MD MICROBIOLOGY - GENERAL ORDERABL ES Final Result Performing Organization Address [facility] Co de Phone Number [facility] [address] [place] [id number], * URINE BACTERIA CULTURE (07/05/2025 10:08 AM CDT) SPEC DESCRIPTION URINE CLEAN CATCH 07/05/2025 10:01 AM CDT [facility] SPECIAL REQUESTS NO SPECIAL REQUEST 07/05/2025 10:01 AM CDT [facility] CULTURE RESULT NO GROWTH 2 DAYS 07/07/2025 8:14 AM CDT [facility] URINE SPECIMEN OBTAINED BY CLEAN CATCH PROCEDURE / Unknown 07/05/2025 10:08 AM CDT 07/05/2025 10:09 AM CDT Howie Loen MD MICROBIOLOGY - GENERAL ORDERABL ES Final Result Performing Organization Address City/[facility]/ZIP Co de Phone Number [facility] [address] [place] [address], [place] [phone] * ELECTROCARDIOGRAM (06/29/2025 8:54 AM CDT) 06/29/2025 8:54 AM CDT Narrative [facility] - 07/01/2025 7:17 [place] [address] Test Date: 2025-06-29 Pat Name: NATAN JARA Department: 177 Room: Gender: Male Manual Arts Therapist: : [id number] Requested By: SAHIL MONTES Order Number: [id number] Reading : Sahil Montes Measurements Intervals Gallant Rate: 48 P: 91 MD: 186 QRS: 16 QRSD: 110 T: 159 QT: 429 QTc: 384 Interpretive Statements [address] BR[address] DEVIATION AND MODERATE T-WAVE ABNORMALITY, CONSIDER LATERAL ISCHEMIA Procedure Note Sahil Montes MD - 07/01/2025 [place] [address] Test Date: 2025-06-29 Pat [facility] Department: 177 Room: Gender: Male Manual Arts Therapist: : 1960 Requested By: SAHIL MONTES Order Number: [id number] Reading GILES Montes Measurements Intervals Gallant Rate: 48 P: 91 MD: 186 QRS: 16 QRSD: 110 T: 159 QT: 429 QTc: 384 Interpretive Statements SINUS BRADYCARDIA ST DEVIATION AND MODERATE T-WAVE ABNORMALITY, CONSIDER LATERAL ISCHEMIA us Sahil Montes MD PROCEDURES-ORDERABLE NO CHARG E Final Result [facility] * PATHOLOGY GENERIC (SCAN ORDER) (06/14/2025) 06/14/2025 [facility] Scanned SCANNING Final Resu lt * OUTSIDE PT/INR (SCAN ORDER) (06/14/2025) Only the most recent of2 resultswithin the time period is included. 06/14/2025 [facility] Scanned SCANNING Final Resu lt * OUTSIDE LAB (SCAN ORDER) (06/14/2025) 06/14/2025 [facility] Scanned SCANNING Final Resu lt * IMAGE GENERIC (06/14/2025) Anatomical Region Laterality Modality Other 06/14/2025 [facility] Scanned SCANNING Final Resu lt * PROCEDURE GENERIC (SCAN ORDER) (06/14/2025) 06/14/2025 [facility] Scanned SCANNING Final Resu lt * (ABNORMAL) COMPREHENSIVE METABOLIC PANEL (06/11/2025 1:25 PM CDT) SODIUM S/P/B 141 136 - 145 MMOL/L 06/12/2025 11:17 AM CDT [facility] POTASSIUM S/P/B 4.5 3.5 - 5.1 MMOL/L 06/12/2025 11:17 AM CDT [facility] CHLORIDE S/P/B 104 98 - 107 MMOL/L 06/12/2025 11:17 AM CDT [facility] CO2 26.4 21 - 32 MMOL/L 06/12/2025 11:17 AM CDT [facility] GLUCOSE 100(H) 70 - 99 MG/DL 06/12/2025 11:17 AM CDT [facility] BUN 20(H) 7 - 18 MG/DL 06/12/2025 11:17 AM CDT [facility] CREATININE S/P/B 1.38(H) 0.70 - 1.30 MG/DL 06/12/2025 11:17 AM T [facility] CALCIUM S/P/B 9.3 8.4 - 10.5 MG/DL 06/12/2025 11:17 AM [facility] BILIRUBIN TOTAL S/P/B 0.8 0.2 - 1.0 MG/DL 06/12/2025 11:17 AM [facility] ALKALINE PHOSPHATASE S/P/B 49 45 - 115 U/L 06/12/2025 11:17 AM CDT [facility] AST 20 15 - 37 U/L 06/12/2025 11:17 AM T [facility] ALT 26 16 - 63 U/L 06/12/2025 11:17 AM [facility] TOTAL PROTEIN S/P/B 7.5 6.4 - 8.2 G/DL 06/12/2025 11:17 AM [facility] ALBUMIN S/P/B 4.0 3.4 - 5.0 G/DL 06/12/2025 11:17 AM [facility] ANION GAP 10.6 5 - 15 MMOL/L 06/12/2025 11:17 AM [facility] Comment:REFERENCE RANGE NOT ESTABLISHED OSMOLALITY (CALC) 295 MOSM/KG 025 11:17 AM T [facility] Comment:REFERENCE RANGE NOT ESTABLISHED GFR ESTIMATE 56(L) >90 ML/MIN/1. 73 M2 06/12/2025 11:17 AM [facility] GFR NOTES GFR REFERENCE S: 06/12/2025 11:17 AM [facility] Comment: THE ESTIMATED GFR IS CALCULATED USING [...] <15 ml/min/1.73 m2 06/11/2025 1:25 PM CDT Sahil Montes MD LABORATORY Final Result [facility] [address] [place] [address], * LIPID PANEL (06/11/2025 1:25 PM CDT) CHOLESTEROL 140 <200 MG/DL 06/12/2025 11:17 AM CDT [facility] TRIGLYCERIDES 110 <150 MG/DL 06/12/2025 11:17 AM CDT [facility] HDL 42 >40 MG/DL 06/12/2025 11:17 AM CDT [facility] LDL-C 76 <100 MG/DL 06/12/2025 11:17 AM CDT [facility] VLDL CALCULATION 22 5 - 28 MG/DL 06/12/2025 11:17 AM CDT [facility] CHOL/HDL RATIO 3.3 0.0 - 4.0 06/12/2025 11:17 AM CDT [facility] LDL/HDL 1.8 0.41 - 2.13 06/12/2025 11:17 AM CDT [facility] NON HDL CHOLESTEROL 98 <140 MG/DL 06/12/2025 11:17 AM CDT [facility] 06/11/2025 1:2 5 PM CDT Sahil Montes MD LABORATORY Final Result [facility] AR[facility] PAOLI [address] [facility] [place] [address], * HEMOGLOBIN, GLYCOSYLATED (06/11/2025) HGB A1C 5.9 % [facility] 06/11/2025 Godfrey Carvajal MD LABORATORY Final Result [facility] [address] [place] [address], [place] * CT ABD+PEL WO CON (05/11/2025 8:48 [...] 1:45 PM Narrative 05/11/2025 2:00 PM CDT [address] [place] [address] EXAMINATION: CT Abdomen and Pelvis without contrast [...] Procedure Note Toni Alex MD - 05/11/[address] [address] EXAMINATION: CT Abdomen and Pelvis without contrast [...] Interpreted By: Toni Alex, 05/11/2025 1:45 PM us Godfrey Carvajal MD CT Final Result * COLONOSCOPY GENERIC (SCAN ORDER) (12/19/2024) 12/19/2024 [facility] Scanned SCANNING Final Resu lt * DIABETIC RETINOPATHY EXAM (NEGATIVE) (10/19/2023) [facility] Scanned SCANNING Final Resu lt [facility] ONBASE from Last 3 Months or Most Recently Relevant to Health Maintenance Insurance [facility] MEDICARE Advance Directives Documents on File Type Date Recorded Patient Territory Sales Manager Expl anation Legal Documents 12/13/2018 Legal Documents 11/24/2018 * Full Code (Latest Code Status on File) Date Activated Date Inactivated Comments 07/19/2025 12:44 PM 07/23/2025 2:37 PM * Full Code Date Activated Date Inactivated Comments 07/21/2023 11:03 AM 07/05/2025 9:58 AM * Full Code Date Activated Date Inactivated Comments 07/12/2023 2:59 PM 07/18/2023 1:44 PM * Full Code Date Activated Date Inactivated Comments 07/10/2023 11:08 PM 07/12/2023 2:59 PM * DNR Date Activated Date Inactivated Comments 07/09/2023 7:47 PM 07/10/2023 11:08 PM Care Teams Turnstile Collector Relationship Specialty Start Date End Date Godfrey Carvajal MD [address] [place] [address] PCP - General 12/23/14
--- OUTSIDE RECORDS SUMMARY | 2025-09-04 21:24 | XMS_ITS | Encounter Summary ---
Author Organization [facility] Facility Care Team Providers Care Sales Representative Printing Paper Name Role Phone Godfrey Abrams MD Primary Care Provider [phone] Kyle Davey MD Unavailable [phone] Encounter Details Date Type Department Care Team (Latest Contact Info) Description 03/25/2016 Orders Only [facility] CLINCONV ProviderMaria De Jesus MD [address] [place] [id number] Social History Tobacco Use Types Packs/Day Years Used Date Smoking Tobacco: Never Assessed Sex and Gender Information Value Date Recorded Sex Assigned at Not on file Legal Sex Male 10:16 AM DIRECTOR OF BUSINESS APPLICATIONS Gender Identity Not on file Sexual Orientation [...] on filedocumented in this encounter Care Teams Sales Representative Printing Paper Relationship Specialty Start Date End Date Godfrey Abrams MD PCP - General Internal Medicine 06/15/18 Kyle Davey MD [address] [facility] [address] [address] Consulting Physician Vascular Surgery 01/31/25 documented as of this encounter
--- OUTSIDE RECORDS SUMMARY | 2025-09-04 21:24 | XMS_ITS | Encounter Summary ---
Author Organization [facility] Address [address] [place] [address] Care Team Providers Care Supplemental Manager Name Role Phone Godfrey Abrams MD Primary Care Provider [phone] Jodi Ortiz RN Unavailable Unavailable Encounter Details Date Type Department Care Team (Late st Contact Info) Description 07/19/2025 Prep for Procedure [facility] [place] [address] Howie Leon MD [address] [facility] [address] [place] [address] Social History Tobacco Use Types Packs/Day [...] week 02/04/2023 How often do you attend [facility] or roman catholic services? Never 02/04/2023 Do you belong to any clubs o r organizations such as presybeterian groups, unions, fraternal or athletic groups, or [...] Recorded Patient Health Questionnaire-2 Score 0 01/09/2025 [facility] of Occupat ional Health - Occupational [...] a long term (including now)? No 07/11/2023 Humiliation, Afraid, Rape, [...] and heating? Not hard at all 07/19/2025 [facility] of Occupat ional Health - Occupational Stress [...] any time in the past 12 m onths, were you homeless or living in a long term (including now)? No 07/19/2025 B1300 Health Literacy Answer Date Recor ded How often do you need to hav e someone help you when you read instructions, pamphlets, or other written material from your doctor or pharmacy? Rarely 07/19/2025 [facility] Utilities Answer Date Recorded In the [...] as of this encounter Functional Status * Question Answer Date of Assessment Author Status Do you have serious difficulty walking or climbing stairs? No 07/19/2025 1:21 PM LESLEET Edith Bowser RN A ctive * Question Answer Date of Assessment Author Status Do you have difficulty dressing or bathing? No 07/19/2025 1:21 PM Edith Jones RN Active Because of a physical, mental, or emotional condition, do you have difficulty doing errands alone such as visiting a doctor's office or shopping? No 07/19/2025 1:21 PM Edith Jones RN Ac tive * Are you deaf or do you have serious difficulty hearing Answer Date of Assessment Author Status No 07/19/2025 1:21 PM Edith Jones RN Active * Are you blind or do you have serious difficulty seeing, even when wearing glasses? Answer Date of Assessment Author Status No 07/19/2025 1:21 PM Edith Jones RN Active * Do you have serious difficulty walking or climbing stairs? Answer Date of Assessment Author Status No 07/19/2025 1:21 PM Edith Jones RN Active * Do you have difficulty dressing or bathing? Answer Date of Assessment Author Status No 07/19/2025 1:21 PM Edith Jnoes RN Active * Because of a physical, mental, or emotional condition, do you have difficulty doing errands alone such as visiting a doctor's office or shopping? Answer Date of Assessment Author Status No 07/19/2025 1:21 PM Eidth Jones RN Active * Question Answer Date of Assessment Author Status Are you deaf or do you have serious difficulty hearing No 07/19/2025 1:21 PM Edith Jones RN Ac tive Are you blind or do you have serious difficulty seeing, even when wearing glasses? No 07/19/2025 1:21 PM Edith Jones RN Ac tive * Calculated C-SSRS Risk Score (Lifetime/Recent) Answer Date of Assessment Author Status No Risk Indicated 07/19/2025 7:00 AM Benny East RN Active * [place] Suicide Severity Rating Scale (Screener/Recent Self-Report) Question Answer Date of Assessment Author Status 1. Wish to be (Past 1 Month) No 07/19/2025 7:00 AM Carina East RN Act jacob 2. Non-Specific Active Suicidal Thoughts (Past 1 Month) No 07/19/2025 7:00 AM Carina East RN Act jacob 6. Suicidal Behavior (Lifetime) No 07/19/2025 7:00 AM Carina East RN Act jacob documented as of this encounter Mental Status * Question Answer Entry Date Author Status Because of a physical, mental, or emotional condition, do you have serious difficulty concentrating, remembering, or making decisions? No 07/19/2025 1:21 PM Edith Jones RN Active * Because of a physical, mental, or emotional condition, do you have serious difficulty concentrating, remembering, or making decisions? Answer Entry Date Author Status No 07/19/2025 1:21 PM Edith Jones RN Active documented in this encounter Plan of Treatment Upcoming Encounters Date Type Department Care Team (Late st Contact Info) Description 10/01/2025 10:20 AM TECHNOLOGY SERVICES MANAGER Office Visit [facility] Family & Internal Medicine - [address] [phone] Godfrey Abrams MD [address] [place] [address] 11/02/2025 9:00 AM TECHNOLOGY SERVICES MANAGER Office Visit [facility] [phone] Jessee Anderson MD [address] [place] [phone] documented as of this encounter Goals Goal Patient Goal Type Associated Problems Recent Progress Patient-Stated? Author Family - family caregiver with be involved in care transitions and discharge planning Lifestyle No Tea Sepulveda, RN documented as of this encounter Visit Diagnoses Diagnosis Atrial flutter, unspecified type ([facility])- Primary Acute embolism and thrombosis of deep vein of lower extremity, unspecified laterality ([facility]) Other iron deficiency anemia documented in this encounter Additional Health Concerns Assessment Noted Time PHQ-9 Depression Total Score: 0 03/03/20 21 2:55 PM CDT documented as of this encounter Care Teams Supplemental Manager Relationship Specialty Start Date End Date Godfrey Abrams MD [address] [place] [address] PCP - General 09/18/14 Jodi Ortiz oyster grader (Ambulatory) REGISTERED NURSE 07/20/2506/28 documented as of this encounter
--- OUTSIDE RECORDS SUMMARY | 2025-09-04 21:24 | XMS_ITS | Encounter Summary ---
Author Organization [facility] Address formerly [facility] [place] [address] Care Team Providers Care Entry Rep Name Role Phone Godfrey Abrams MD Primary Care Provider [phone] Jodi Ortiz RN Unavailable Unavailable Encounter Details Date Type Department Care Team (Late st Contact Info) Description 12/06/2024 [employer] Message Enc [facility] [address] [address] Mychart, [facility] Provider warfarin/lovenox instructions Social History Tobacco Use [...] any clubs o r organizations such as lutheran groups, unions, fraternal or athletic groups, or [...] Recorded Patient Health Questionnaire-2 Score 0 11/23/2023 [facility] of Occupat ional Health - Occupational Stress [...] place to sleep or slept in a halfway (including now)? No 07/11/2023 Sex and Gender [...] st Contact Info) Description 10/01/2025 10:20 AM RESIDENTIAL LEASING AGENT Office Visit [facility] Medical Group Family & Internal Medicine - [address] [phone] Godfrey Abrams MD [address] [place] [address] 11/02/2025 9:00 AM RESIDENTIAL LEASING AGENT Office Visit [facility] [phone] Jessee Anderson MD 3 [facility] [address] [place] [phone] documented as of this encounter Goals [...] documented as of this encounter Care Teams Entry Rep Relationship Specialty Start Date End Date Godfrey Abrams MD [address] [place] [address] PCP - General 09/18/14 Jodi Ortiz, window cutter (Ambulatory) REGISTERED NURSE 07/20/2506/28 documented as of this encounter
--- OUTSIDE RECORDS SUMMARY | 2025-09-04 21:24 | XMS_ITS | Encounter Summary ---
Author Organization [facility] Address [address] [place] [address] Care Team Providers Care Chip Drier Name Role Phone Godfrey Abrams MD Primary Care Provider Jodi Ortiz RN Unavailable Unavailable Encounter Details Date Type Department Care Team (Late st Contact Info) Description 07/21/2023 Zipnosis Message [email or web address] [facility] Family & Internal Medicine [address] [phone] Sarkis, [facility] Provider Diabetic eye exam Social History Tobacco [...] often do you attend chur ch or presybeterian services? Never 02/04/2023 Do you belong to any clubs o r organizations such as bahai groups, unions, fraternal or athletic groups, or [...] Recorded Patient Health Questionnaire-2 Score 0 11/19/2022 [facility] of Occupat ional Health - Occupational Stress [...] in a residential (including now)? No 07/11/2023 Sex and Gender [...] st Contact Info) Description 10/01/2025 10:20 AM SCHEDULER MAINTENANCE Office Visit [facility] Family & Internal Medicine - [address] [phone] Godfrey Abrams MD [address] [place] [address] 11/02/2025 9:00 AM SCHEDULER MAINTENANCE Office Visit [facility] [phone] Jessee Anderson MD 3 [facility] [address] [place] [phone] documented as of this encounter Goals [...] documented as of this encounter Care Teams Chip Drier Relationship Specialty Start Date End Date Godfrey Abrams MD [address] [place] [address] PCP - General 09/18/14 Jodi Ortiz RN Care Manager (Ambulatory) REGISTERED NURSE 07/20/2506/28 documented as of this encounter
--- OUTSIDE RECORDS SUMMARY | 2025-09-04 21:24 | XMS_ITS | Encounter Summary ---
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
--- OUTSIDE RECORDS SUMMARY | 2025-09-04 21:24 | XMS_ITS | Encounter Summary ---
Author Organization [facility] Address [address] [place] [address] Care Team Providers Care Research And Development Specialist Name Role Phone Godfrey Abrams MD Primary Care Provider [phone] Encounter Details Date Type Department Care Team (Latest Contact Info) Description 08/07/2025 Results Follow-Up [facility] Family & Internal Medicine [place] [address] [place] [address] Godfrey Abrams MD [address] [place] [phone] HOMOCYSTEINE, RETICULOCYTE CT, AUTO, IRON SAT PANEL (IRON,IBC,%SAT), Additional followed-up results: 2 Social History Tobacco Use Types Packs/Day Years [...] week 02/04/2023 How often do you attend [facility] or catholic services? Never 02/04/2023 Do you belong to any clubs o r organizations such as sikh groups, unions, fraternal or athletic groups, or [...] Recorded Patient Health Questionnaire-2 Score 0 01/09/[address] [facility] - Occupational Stress Questionnaire Answer Date Recorded [...] and heating? Not hard at all 07/19/2025 [facility] of Occupat ional Health - Occupational Stress [...] any time in the past [address] [facility], were you homeless or living in a long term (including now)? No 07/19/2025 B1300 Health Literacy Answer Date Recor ded How often do you need to hav e someone help you when you read instructions, pamphlets, or other written material from your doctor or pharmacy? Rarely 07/19/2025 [facility] Utilities Answer Date Recorded In the [...] documented in this encounter Progress Notes * Godfrey Abrams MD - 08/07/2025 11:12 AM CST Hemoglobin and iron levels are improved. Continue with iron supplementation. T PLANT RESEARCH TECHNICIAN documented in this encounter Plan of Treatment Upcoming Encounters Date Type Department Care Team (Late st Contact Info) Description 10/01/2025 10:20 AM PILOT PLANT RESEARCH TECHNICIAN Office Visit [facility] Family & Internal Medicine [address] [phone] Godfrey Abrams MD [facility] [place] [address] 11/02/2025 9:00 AM PILOT PLANT RESEARCH TECHNICIAN Office Visit [facility] [address] [place] [address] Jessee Anderson MD 3 [facility] Suite [facility] [place] [phone] documented as of this encounter Goals Goal [...] documented as of this encounter Care Teams Research And Development Specialist Relationship Specialty Start Date End Date Godfrey Abrams MD [address] [place] [address] PCP - General 09/18/14 documented as of this encounter
--- OUTSIDE RECORDS SUMMARY | 2025-09-04 21:24 | XMS_ITS | Encounter Summary ---
Author Organization [facility] Address [facility] [place] [address] Care Team Providers Care Cell Pourer Name Role Phone Godfrey Abrams MD Primary Care Provider [phone] Jodi Ortiz RN Unavailable Unavailable Encounter Details Date Type Department Care Team (Late st Contact Info) Description 07/02/2025 [facility] Message Enc [facility] [address] [address] Mycrobertt, [facility] Provider warfarin/lovenox instructions Social History Tobacco Use [...] How often do you attend chur or faith services? Never 02/04/2023 Do you belong to any clubs o r organizations such as yarsani groups, unions, fraternal or athletic groups, or [...] Recorded Patient Health Questionnaire-2 Score 0 01/09/2025 [facility] [place] of Occupat ional Health - Occupational Stress [...] 8:47 AM CDT Sexual Orientation Straight 12/13/2018 8 :47 AM CDT documented as of this encounter [...] Assessment Author Status No 07/11/2023 11:14 PM Colten Turcios RN Active * Because of a physical, mental, or emotional condition, do you have difficulty doing errands alone such as visiting a doctor's office or shopping? Answer Date of Assessment Author Status No 07/11/2023 11:14 PM Colten Turcios RN Active * Calculated C-SSRS Risk Score (Lifetime/Recent) Answer Date of Assessment Author Status No Risk Indicated 07/05/2025 10:16 AM Jessica Doan RN Active * [place] Suicide Severity Rating Scale (Screener/Recent Self-Report) Question Answer Date of Assessment Author Status 1. Wish to be (Past 1 Month) No 07/05/2025 10:16 AM Deisi Doan RN Ac tive 2. Non-Specific Active Suicidal Thoughts (Past 1 Month) No 07/05/2025 10:16 AM Deisi Doan RN Ac tive 6. Suicidal Behavior (Lifetime) No 07/05/2025 10:16 AM Deisi Doan RN Ac tive documented as of this encounter Mental Status * Because of a physical, mental, or emotional condition, do you have serious difficulty concentrating, remembering, or making decisions? Answer Entry Date Author Status No 07/11/2023 11:14 PM Colten Turcios RN Active documented in this encounter Plan of Treatment Upcoming Encounters Date Type Department Care Team (Late st Contact Info) Description 10/01/2025 10:20 AM COAL OR ORE CONTROLLER Office Visit [facility] Medical Group Family & Internal Medicine - [address] [phone] Godfrey Abrams MD [address] [place] [address] 11/02/2025 9:00 AM COAL OR ORE CONTROLLER Office Visit [facility] [phone] Jessee Anderson MD [address] [place] [phone] documented as of this encounter Goals Goal [...] documented as of this encounter Care Teams Cell Pourer Relationship Specialty Start Date End Date Godfrey Abrams MD [address] [place] [address] PCP - General 09/18/14 Jodi Ortiz, show worker (Ambulatory) REGISTERED NURSE 07/20/2506/28 documented as of this encounter
[2025-09-04 21:26] VITALS: BP 176/93; PULSE 79; RESP 20; TEMP 36.3; O2SAT 99
--- OUTSIDE RECORDS SUMMARY | 2025-09-04 23:15 | XMS_ITS | Encounter Summary ---
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
--- OUTSIDE RECORDS SUMMARY | 2025-09-04 23:15 | XMS_ITS | Encounter Summary ---
Author Organization [facility] Address [facility] [place] [address] Care Team Providers Care Skidder Lever Operator Name Role Phone Godfrey Abrams MD Primary Care Provider [phone] Jodi Ortiz RN Unavailable Unavailable Encounter Details Date Type Department Care Team (Late st Contact Info) Description 12/06/2024 [employer] Message Enc [facility] [address] [address] Mychart, [facility] Provider warfarin/lovenox instructions Social History Tobacco [...] any clubs o r organizations such as rastafari groups, unions, fraternal or athletic groups, or [...] Recorded Patient Health Questionnaire-2 Score 0 11/23/2023 [facility] [place] of Occupat ional Health - Occupational Stress [...] place to sleep or slept in a skilled nursing (including now)? No 07/11/2023 Sex and Gender [...] st Contact Info) Description 10/01/2025 10:20 AM HISTORIC CLOTHING AND COSTUME MAKER Office Visit [facility] Family & Internal Medicine - [address] [phone] Godfrey Abrams MD [address] [place] [address] 11/02/2025 9:00 AM HISTORIC CLOTHING AND COSTUME MAKER Office Visit [facility]-[address] [phone] Jessee Anderson MD 3 [facility] [address] [place] [phone] documented as of this encounter Goals [...] documented as of this encounter Care Teams Skidder Lever Operator Relationship Specialty Start Date End Date Godfrey Abrams MD [address] [place] [address] PCP - General 09/18/14 Jodi Ortiz, transport assistant (Ambulatory) REGISTERED NURSE 07/20/2506/28 documented as of this encounter
--- OUTSIDE RECORDS SUMMARY | 2025-09-04 23:15 | XMS_ITS | Encounter Summary ---
Author Organization [facility] Address [address] [place] [address] Care Team Providers Care Animation Producer Name Role Phone Godfrey Abrams MD Primary Care Provider [phone] Jodi Ortiz RN Unavailable Unavailable Encounter Details Date Type Department Care Team (Late st Contact Info) Description 07/21/2023 [employer] Message [employer] [facility] Family & Internal Medicine [address] [phone] Sarkis, [facility] Provider Diabetic eye exam Social [...] often do you attend chur ch or yazidi services? Never 02/04/2023 Do you belong to any clubs o r organizations such as yazidi groups, unions, fraternal or athletic groups, or [...] Recorded Patient Health Questionnaire-2 Score 0 11/19/2022 [facility] of Occupat ional Health - Occupational Stress [...] place to sleep or slept in a [place] health care facility (including now)? No 07/11/2023 Sex and Gender [...] st Contact Info) Description 10/01/2025 10:20 AM VALIDATION CONSULTANT Office Visit [facility] Family & Internal Medicine - [address] [phone] Godfrey Abrams MD [address] [place] [address] 11/02/2025 9:00 AM VALIDATION CONSULTANT Office Visit [facility] [phone] Jessee Anderson MD 3 [facility] [address] [place] [phone] documented as of this encounter Goals [...] documented as of this encounter Care Teams Animation Producer Relationship Specialty Start Date End Date Godfrey Abrams MD [address] [place] [address] PCP - General 09/18/14 Jodi Ortiz RN Care Manager (Ambulatory) REGISTERED NURSE 07/20/2506/28 documented as of this encounter
--- OUTSIDE RECORDS SUMMARY | 2025-09-04 23:15 | XMS_ITS | Clinical Summary ---
Author Organization [facility] Address [address] [place] [address] Care Team Providers Care Supply Chain Coordinator Name Role Phone Godfrey Carvajal MD Primary Care Provider [phone] Allergies No known active allergies Medications cholecalciferol 125 MCG (5000 UT) TabIndications: Vitamin D Deficiency Take 1 tablet (125 mcg total) by mouth daily. Indications: Vitamin D Deficiency 06/15/20 17 Active B Wcqyqoa-N-Wfnyh Acid (SM B SUPER VITAMIN COMPLEX OR)Indications: [...] gangrene, without long-term current use of insulin ([facility]) PLACE ONTO SKIN ONCE EVERY 14 DAYS DIRECTED 6 each 05/07/20 25 Active metoprolol succinate ER (TOPROL-XL) 50 MG 24 hr tabletIndicatio ns:Atrial flutter, unspecified type ([facility]),NSTEMI (non-ST elevated myocardial infarction) ([facility]) Take 1 tablet (50 mg total) by mouth daily. 90 tablet 3 06/29/20 25 Active atorvastatin (LIPITOR) 80 MG tabletIndicatio ns:Hyperlipidem ia Take 1 tablet (80 mg total) by mouth daily. 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 03/23/2016 Overview [...] Care Team Description 09/03/2025 Anti-Coag Telephone Call [facility], [address] [address] Hali Stephens RN Anticoagulation (protime) 08/27/2025 Anti-Coag Telephone Call [facility], [address] [address] Hali Stephens RN Anticoagulation (protime) 08/20/2025 Anti-Coag Telephone Call [facility], [address] [address] Hali Stephens, RN Anticoagulation (protime) 08/13/2025 Anti-Coag Telephone Call [facility], [address] [address] Hali Stephens RN Anticoagulation (protime) 08/07/2025 Results Follow-Up [facility] Family & Internal Medicine [address] [address] Godfrey Carvajal MD HOMOCYSTEINE, RETICULOCYTE CT, AUTO, IRON SAT PANEL (IRON,IBC,%SAT), Additional followed-up results: 2 08/06/2025 Anti-Coag Telephone Call [facility], [address] [address] Hali Stephens, RN Anticoagulation (protime) 08/06/2025 Orders Only [facility] MAIN BUSINESS OFFICE [address] [place] [address] Neno Chavez MD 08/03/2025 10:20 AM AUTOMATIC SERGING MACHINE OPERATOR Laboratory Only [facility] Family & Internal [address] [address] Godfrey Carvajal MD 08/03/2025 - 08/03/2025 11:59 PM AUTOMATIC SERGING MACHINE OPERATOR Hospital Encounter [facility] [place] [address] Godfrey Carvajal MD Discharge Disposition: Home or Self Care (Routine Discharge) 08/03/2025 Travel 08/01/2025 Telephone [facility] Family Internal [address] [address] Godfrey Carvajal MD Lab Results 07/30/2025 Anti-Coag Telephone Call [facility] [address] Hali Stephens, RN Anticoagulation (protime) 07/26/2025 Anti-Coag Telephone Call [facility] [place] [address]209 Hali Stephens RN Anticoagulation (protime) 07/24/2025 Scan [employer] SRVCS Scanned, [facility] 07/24/2025 Hospital Follow-up [place] [address] Juhi Islas LPN Follow Up Call (AISHA 07/19-07/23/25) 07/24/2025 Patient Outreach [facility] Internal [address] [address] Jodi Ortiz RN TCM (AISHA d/c 07/23/25) 07/23/2025 Anti-Coag Telephone Call [facility] [address] [address] Miriam Grey, RN Anticoagulation (INR) 07/20/2025 Patient Outreach [facility] Internal [address] [address] Jodi Ortiz RN Hospital Follow Up (AISHA admission 07/19/25) 07/19/2025 7:30 AM CDT - 07/19/2025 12:00 PM CDT [place] [address] Howie Leon MD ROBOTIC XI ASSISTED LEFT NEPHROURETERECTOMY;IN TRAVESICAL INSTILLATION OF GEMCITABINE 07/19/2025 7:30 AM CDT Anesthesia [place] [address] Martinez Neves DO Jarvis, Brittany L, PNEUMATIC JACKETER 07/19/2025 5:24 AM CDT - 07/23/2025 12:27 PM CDT Hospital Encounter [facility] 3[address] [place] [address] Howie Leon MD Discharge Disposition: Home or Self Care (Routine Discharge) 07/19/2025 Travel 07/19/2025 Prep for [place] [address] Howie Leon MD 07/10/2025 Scan [facility] SRVCS Scanned, [facility] 07/09/2025 Anti-Coag Telephone Call [facility] [address] [address] Miriam Grey, RN Anticoagulation (INR) 07/06/2025 Anti-Coag Telephone Call [facility] [address] [address] Miriam Grey, RN Anticoagulation (INR) 07/05/2025 9:58 AM CDT - 07/05/2025 11:10 AM CDT Hospital Encounter [facility] [place] [address] Howie Leon MD Discharge Disposition: Home or Self Care (Routine Discharge) 07/05/2025 Travel 07/04/2025 Anti-Coag Telephone Call [facility] [address] [address] Miriam Grey RN Anticoagulation (INR) 07/04/2025 Orders Only [facility] MAIN BUSINESS OFFICE [address] [place] [address] Neno Chavez MD 07/02/2025 MyChart Message Enc [facility] [address] [address] Sarkis, [facility] Provider warfarin/lovenox instructions 07/02/2025 Anti-Coag Telephone Call [facility] [address] [address] Miriam Grey RN Anticoagulation (Warfarin/Lovenox instructions.) 06/29/2025 8:45 AM CDT Office Visit [facility] [address] Sahil Montes MD CHF (4mo) 06/29/2025 Travel 06/29/2025 Telephone [facility] [address] [address] Sahil Montes MD Surgical Clearance 06/20/2025 Scan [facility] INFO SRVCS Scanned, [facility] 06/20/2025 Anti-Coag Telephone Call [facility] [address] [address] Miriam Grey RN Anticoagulation (INR) 06/18/2025 Anti-Coag Telephone Call [facility] [address] [place] [address] Miriam Grey RN Anticoagulation (INR) 06/14/2025 Scan [place] [employer] SRVCS Scanned, [facility] Image (SCAN); Procedure (SCAN); Lab (SCAN); Pathology (SCAN) 06/12/2025 Results Follow-Up [facility] & Internal [address] [address] Alma Pham APNP HEMOGLOBIN, GLYCOSYLATED 06/12/2025 Results Follow-Up [facility] [address] Consuelo Miles RN COMPREHENSIVE METABOLIC PANEL, LIPID PANEL 06/11/2025 1:40 PM CDT Office Visit [facility] & Internal [address] [address] Godfrey Carvajal MD Follow Up; Hypertension; Diabetes; Hyperlipidemia; Obstructive Sleep Apnea ; Vitamin D Deficiency; Coronary Artery Disease; CHF; COPD; Finger (Pt c/o discoloration in fingers. ); Surgery (Pt is scheduled for kidney biopsy next week with Dr. Rhoades @ [facility]. ) 06/11/2025 1:00 PM CDT Laboratory Only [facility] Internal [address] [address] Godfrey Carvajal MD 06/11/2025 Travel 06/05/2025 Scan [place] [employer] SRVCS Scanned, [facility] Lab (SCAN) 06/05/2025 Telephone [facility], [address] [address] Sahil Montes MD Information ([facility] Pre-Admit Anesthisia) from Last 3 Months Immunizations [...] often do you attend chur ch or mu-ism services? Never 02/04/2023 Do you belong to any clubs o r organizations such as roman catholic groups, unions, fraternal or athletic groups, or [...] Recorded Patient Health Questionnaire-2 Score 0 01/09/2025 [facility] of Occupat ional Health [...] place to sleep or slept in a retirement (including now)? No 07/11/2023 Humiliation, Afraid, Rape, [...] and heating? Not hard at all 07/19/2025 [facility] of Occupat ional Health - Occupational Stress [...] any time in the past 12 m [facility], were you homeless or living in a retirement (including now)? No 07/19/2025 B1300 Health Literacy Answer Date Recor ded How often do you need to hav e someone help you when you read instructions, pamphlets, or other written material from your doctor or pharmacy? Rarely 07/19/2025 [facility] Utilities Answer Date Recorded In the past [...] st Contact Info) Description 10/01/2025 10:20 AM AUTOMATIC SERGING MACHINE OPERATOR Office Visit [facility] Family & Internal Medicine - [address] [address] Godfrey Carvajal MD [address] [place] [address] 11/02/2025 9:00 AM AUTOMATIC SERGING MACHINE OPERATOR Office Visit [facility] [phone] Sahil Montes MD 3 [facility] [address] [place] [phone] Health Maintenance Due Date Last Done [...] Zoster Vaccines Completed 11/23/2023, 09/14/2023 PHQ-2 (Physician [facility]) Completed 01/09/2025 Pneumococcal Vaccine: 50+ Years Completed [...] Sepulveda RN Medical Devices Implanted Type Area Museum Tour Guide Device Identifier Shelf Expiration Date Model / Serial / Lot Wire Sterum Suture Kit [employer] #7 09/28 Ccs-1 - [id number] Implanted:Qty: 1 on 07/12/2023 by Sarthak Zhao RNFA at [facility] Wire N/A: Sternum [employer] 04/27/2027 [id number] / / [id number] Description:2 Wires implante d Wire Sternotomy Suture Kit - [id number] Implanted:Qty: 1 on 07/12/2023 by Sarthak Zhao RNFA at [facility] N/A: Sternum [employer] 10/28/2027 [id number] / / [id number] Description:5 wires implante d Procedures Procedure Name Priority Date/Time Associated Diagnosis Comments MD REVIEW,HOME INR TEST Routine 09/03/2025 3:11 PM AUTOMATIC SERGING MACHINE OPERATOR MD REVIEW,HOME INR TEST Routine 08/27/2025 3:21 PM AUTOMATIC SERGING MACHINE OPERATOR MD REVIEW,HOME INR TEST Routine 08/20/2025 2:29 PM AUTOMATIC SERGING MACHINE OPERATOR MD REVIEW,HOME INR TEST Routine 08/13/2025 1:10 PM AUTOMATIC SERGING MACHINE OPERATOR MD REVIEW,HOME INR TEST Routine 08/06/2025 2:39 PM AUTOMATIC SERGING MACHINE OPERATOR CBC W/DIFF AUTOMATED Routine 08/03/2025 11:41 AM AUTOMATIC SERGING MACHINE OPERATOR Anemia MTHFR mutation FERRITIN Routine 08/03/2025 11:41 AM AUTOMATIC SERGING MACHINE OPERATOR Anemia MTHFR mutation IRON SAT PANEL (IRON,IBC,%SAT) Routine 08/03/2025 11:41 AM AUTOMATIC SERGING MACHINE OPERATOR Anemia MTHFR mutation RETICULOCYTE CT, AUTO Routine 08/03/2025 11:41 AM AUTOMATIC SERGING MACHINE OPERATOR Anemia MTHFR mutation HOMOCYSTEINE Routine 08/03/2025 11:41 AM AUTOMATIC SERGING MACHINE OPERATOR Anemia MTHFR mutation COLLECTION VENOUS BLOOD VENIPUNCTURE Routine 08/03/2025 10:48 AM AUTOMATIC SERGING MACHINE OPERATOR Anemia MTHFR mutation MD REVIEW,HOME INR TEST Routine 07/30/2025 2:38 PM AUTOMATIC SERGING MACHINE OPERATOR MD REVIEW,HOME INR TEST Routine 07/26/2025 1:16 [...] gangrene, without long-term current use of insulin ([facility] HHS/HCC) COLLECTION VENOUS BLOOD VENIPUNCTURE Routine 06/11/2025 1:25 PM CDT Coronary artery disease of [place] artery of [place] heart with stable angina pectoris Benign essential hypertension Atrial flutter, unspecified type ([facility] HHS/HCC) LIPID PANEL Routine 06/11/2025 1:25 PM CDT Coronary artery disease of [place] artery of [place] heart with stable angina pectoris Benign essential hypertension Atrial flutter, unspecified type ([facility] HHS/HCC) COMPREHENSIVE METABOLIC PANEL Routine 06/11/2025 1:25 PM CDT Coronary artery disease of [place] artery of [place] heart with stable angina pectoris Benign essential hypertension Atrial flutter, unspecified type ([facility] HHS/HCC) HEMOGLOBIN, GLYCOSYLATED Routine 06/11/2025 Type 2 diabetes mellitus with diabetic peripheral angiopathy without gangrene, without long-term current use of insulin ([facility] HHS/HCC) OUTSIDE PT/INR (SCAN ORDER) 06/05/2025 CT ABD+PEL WO CON JAXSON 05/11/2025 8:48 AM CDT Gross hematuria COLONOSCOPY GENERIC (SCAN ORDER) 12/19/2024 DIABETIC RETINOPATHY EXAM (NEGATIVE)(SCAN ORDER) Routine 10/19/2023 from Last 3 Months or Most Recently Relevant to Health Maintenance Results * MD REVIEW,HOME INR TEST (09/03/2025 3:11 PM AUTOMATIC SERGING MACHINE OPERATOR) Only the most recent of12 resultswithin the time period is included. INR WHOLE BLOOD 2.3 2.000 - 3.000 ALERE HOME MONITORING DEVICE 09/03/2025 3:11 PM AUTOMATIC SERGING MACHINE OPERATOR us Neno Chavez MD LABORATORY Final Resul t ALERE HOME MONITORING DEVICE * IRON SAT PANEL (IRON,IBC,%SAT) (08/03/2025 11:41 AM AUTOMATIC SERGING MACHINE OPERATOR) IRON 81 65 - 175 MCG/DL 08/03/2025 4:13 PM AUTOMATIC SERGING MACHINE OPERATOR [facility] IRON BINDING CAPACITY 312 250 - 450 MCG/DL 08/03/2025 4:13 PM AUTOMATIC SERGING MACHINE OPERATOR [facility] IRON SATURATION 26 % 4:13 PM AUTOMATIC SERGING MACHINE OPERATOR [facility] Comment:REFERENCE RANGE NOT ESTABLISHED 08/03/2025 11:4 1 AM AUTOMATIC SERGING MACHINE OPERATOR us Godfrey Carvajal MD LABORATORY Final Result [facility] [address] [place] [address], [place] [phone] * (ABNORMAL) RETICULOCYTE CT, AUTO (08/03/2025 11:41 AM AUTOMATIC SERGING MACHINE OPERATOR) Pathologist [facility] RETICULOCYTE COUNT 2.4(H) 0.7 - 2.3 % 08/03/2025 6:55 PM AUTOMATIC SERGING MACHINE OPERATOR [facility] ABSOLUTE RETICULOCYTE 0.08 0.03 - 0.11 x10'6/uL 08/03/2025 6:55 PM AUTOMATIC SERGING MACHINE OPERATOR [facility] IMMATURE RETIC FRACTION 11.7 2.3 - 13.4 % 08/03/2025 6:55 PM AUTOMATIC SERGING MACHINE OPERATOR [facility] RETIC HGB 37.9(H) 28.0 - 35.0 PG 08/03/2025 6:55 PM AUTOMATIC SERGING MACHINE OPERATOR [facility] 08/03/2025 11:4 1 AM AUTOMATIC SERGING MACHINE OPERATOR us Godfrey Carvajal MD LABORATORY Final Result [facility] [address] [place] [address], [place] [phone] * (ABNORMAL) CBC W/DIFF AUTOMATED (08/03/2025 11:41 AM AUTOMATIC SERGING MACHINE OPERATOR) Only the most recent of6 resultswithin the time period is included. WBC 10.70 4.00 - 10.80 x10'3/uL 08/03/2025 3:40 PM [facility] RBC 3.44(L) 4.50 - 6.10 x10'6/uL 08/03/2025 3:40 PM [facility] HGB 11.1(L) 13.0 - 18.0 G/DL 08/03/2025 3:40 PM [facility] HCT 33.9(L) 37.0 - 52.0 % 08/03/2025 3:40 PM [facility] MCV 98.5 78.0 - 100.0 FL 08/03/2025 3:40 PM [facility] MCH 32.3(H) 27.0 - 31.0 PG 08/03/2025 3:40 PM [facility] MCHC 32.7(L) 33.0 - 36.0 G/DL 08/03/2025 3:40 PM [facility] RDW 15.7(H) 11.5 - 14.5 % 08/03/2025 3:40 PM [facility] PLT 319 150 - 350 x10'3/uL 08/03/2025 3:40 PM [facility] MPV 10.9(H) 7.4 - 10.4 FL 08/03/2025 3:40 PM [facility] DIFFERENTIAL TYPE AUTOMATED DIFFERENTIAL 08/03/2025 3:40 PM [facility] NEUTROPHILS % 70.0 % 08/03/2025 3:40 PM [facility] LYMPHOCYTES % 19.4 % 08/03/2025 3:40 PM [facility] MONOCYTES % 6.4 % 08/03/2025 3:40 PM [facility] EOSINOPHILS % 3.3 % 08/03/2025 3:40 PM AUTOMATIC SERGING MACHINE OPERATOR [facility] BASOPHILS % 0.5 % 08/03/2025 3:40 PM AUTOMATIC SERGING MACHINE OPERATOR [facility] IMMATURE GRANS % 0.4 % 08/03/2025 3:40 PM AUTOMATIC SERGING MACHINE OPERATOR [facility] ABS. NEUTROPHILS 7.50 1.60 - 8.30 x10'3/uL 08/03/2025 3:40 PM AUTOMATIC SERGING MACHINE OPERATOR [facility] ABS. LYMPHOCYTES 2.08 0.80 - 4.70 x10'3/uL 08/03/2025 3:40 PM AUTOMATIC SERGING MACHINE OPERATOR [facility] ABS. MONOCYTES 0.68 0.00 - 1.50 x10'3/uL 08/03/2025 3:40 PM AUTOMATIC SERGING MACHINE OPERATOR [facility] ABS. EOSINOPHILS 0.35 0.00 - 0.40 x10'3/uL 08/03/2025 3:40 PM AUTOMATIC SERGING MACHINE OPERATOR [facility] ABS. BASOPHILS 0.05 0.00 - 0.20 x10'3/uL 08/03/2025 3:40 PM AUTOMATIC SERGING MACHINE OPERATOR [facility] ABS. IMMATURE GRANULOCYTES 0.04(H) 0.00 - 0.03 x10'3/uL 08/03/2025 3:40 PM AUTOMATIC SERGING MACHINE OPERATOR [facility] 08/03/2025 11:4 1 AM AUTOMATIC SERGING MACHINE OPERATOR Godfrey Carvajal MD LABORATORY Final Result [facility] [address] [place] [address], * (ABNORMAL) HOMOCYSTEINE (08/03/2025 11:41 AM AUTOMATIC SERGING MACHINE OPERATOR) Pathologist [facility] HOMOCYSTEINE S/P/B 16(H) 3 - 11 MCMOL/L 08/03/2025 10:20 PM AUTOMATIC SERGING MACHINE OPERATOR [facility] HOMOCYSTINE NORMALS NORMAL LEVEL IS LESS THAN OR EQUAL TO 9 08/03/2025 11:41 AM AUTOMATIC SERGING MACHINE OPERATOR [facility] Comment: MILD IS 10 TO 15 UMOL/L MODERATE IS 16 TO 30 UMOL/L MODERATE TO SEVERE IS 31 TO 100 UMOL/L SEVERE IS GREATER THAN 100 UMOL/L 08/03/2025 11:4 1 AM AUTOMATIC SERGING MACHINE OPERATOR us Godfrey Carvajal MD LABORATORY Final Result Performing Organization Address City/[facility] Co de Phone Number [facility] [address] [place] [address], [phone] * FERRITIN (08/03/2025 11:41 AM AUTOMATIC SERGING MACHINE OPERATOR) FERRITIN 78.9 26.0 - 388.0 NG/ML 08/03/2025 9:33 PM AUTOMATIC SERGING MACHINE OPERATOR [facility] 08/03/2025 11:4 1 AM AUTOMATIC SERGING MACHINE OPERATOR us Godfrey Carvajal MD LABORATORY Final Result Performing Organization Address [facility] de Phone Number [facility] [address] [place] [address], [phone] * PROTIME/INR, VENOUS (07/23/2025 6:58 AM CDT) Only the most recent of5 resultswithin the time period is included. PROTIME 12.5 10.2 - 12.9 SEC 07/23/2025 7:58 AM CDT [facility] INR 1.1 07/23/2025 7:58 AM CDT [facility] Comment: Recommended INR Therapeutic Goals: 2.0-3.0 Routine Therapy 2.5-3.5 Mechanical Prosthetic Valves (High Risk) 07/23/2025 6:58 AM CDT us Darlyn S Petty [employer] ARCHITECT LABORATORY Final Result [facility] [address] [place] [address], * (ABNORMAL) BASIC METABOLIC PANEL (07/23/2025 6:58 AM CDT) Only the most recent of5 resultswithin the time period is included. GLUCOSE 135(H) 70 - 99 MG/DL 07/23/2025 7:53 AM CDT [facility] BUN 29(H) 7 - 18 MG/DL 07/23/2025 7:53 AM CDT [facility] CREATININE S/P/B 2.34(H) 0.7 - 1.3 MG/DL 07/23/2025 7:53 AM CDT [facility] SODIUM S/P/B 142 136 - 145 MMOL/L 07/23/2025 7:53 AM CDT [facility] POTASSIUM S/P/B 4.6 3.5 - 5.1 MMOL/L 07/23/2025 7:53 AM CDT [facility] CHLORIDE S/P/B 112 97 - 115 MMOL/L 07/23/2025 7:53 AM CDT [facility] CO2 26.9 21 - 32 MMOL/L 07/23/2025 7:53 AM CDT [facility] CALCIUM S/P/B 9.2 8.5 - 10.1 MG/DL 07/23/2025 7:53 AM CDT [facility] ANION GAP 3.1 2 - 10 MMOL/L 07/23/2025 7:53 AM CDT [facility] BUN CREATININE RATIO 12.4 6 - 26 07/23/2025 7:53 AM CDT [facility] GFR ESTIMATE 30(L) >90 ML/MIN/1.7 3 M2 07/23/2025 7:53 AM CDT [facility] Comment: NOTE: eGFR is not calculated [...] MD LABORATORY Final Result Performing Organization Address City/[facility] Co de Phone Number [facility] [address] [place] [address], * (ABNORMAL) HEMOGLOBIN AND HEMATOCRIT (07/19/2025 11:52 AM CDT) HGB 11.4(L) 14.0 - 18.0 G/DL 07/19/2025 12:08 PM CDT [facility] HCT 33.7(L) 43.0 - 54.0 % 07/19/2025 12:08 PM CDT [facility] 07/19/2025 11:5 2 AM CDT Howie Leon MD LABORATORY Final Result Performing Organization Address City/[facility] Co de Phone Number [facility] [address] [place] [address], [place] [phone] * (ABNORMAL) POCT glucose (07/19/2025 11:47 AM CDT) Only the most recent of2 resultswithin the time period is included. GLUCOSE POC 176(H) 70 - 99 mg/dL 07/19/2025 11:50 AM CDT [facility] 07/19/2025 11:4 7 AM CDT Howie Leon MD POCT ORDERABLES - DEVICE Final Result [facility] [address] [place] [address], [place] [phone] * Art Line (07/19/2025 8:09 AM CDT) [...] Patient Tolerance: Tolerated well Martinez Neves DO [place] ANESTHESIA Final Result * Pathology (07/19/2025 12:00 AM CDT) PATHOLOGY [facility] Department of Laboratory Medicine [address] [place] [phone] , extension [phone] Pathology Report Surgical Pathology Report Name: NATAN JARA Specimen #: [id number] Age: 2 1960 (Age: 64) Location: [id number] Sex: M Procedure Date: 07/19/2025 Hospital #: [id number] Date Received: 07/19/2025 Date Reported: 07/23/2025 Provider: [...] PATHOLOGIC STAGE CLASSIFICATION (pTNM, AJCC 8th Edition) lease picker(m)(is) pN0 Gross Description: A. Received in formalin, [...] parenchymal mass lesions are identified. BLOCK SUMMARY Emergency Medicine tissue is submitted as follows: B1 distal ureter/bladder cuff margin B2 distal ureter B3 mid ureter B4 through B6 lesion #1 B7 lesion #2 B8 inferior renal pelvis B9 superior renal pelvis B10 cyst from posterior kidney B11 renal parenchyma B12 vascular margins. Gross examination (when applicable), interpretation, and sign out were performed at [facility], [address] [place] [address]. Electronically Signed Out SANDEE FLORES MD [facility] TISSUE (OTHER (TYPE IN COMMENTS)) 07/19/2025 9:27 AM CDT us Howie Leon MD PATHOLOGY/CYTOLOGY ORDERABLES F inal Result [facility] [address] [place] [address], [id number] * TYPE & SCREEN (07/05/2025 10:50 AM CDT) UNITS ORDERED 1 07/19/2025 8:21 AM CDT [facility] ABO/RH O NEGATIVE 07/05/2025 11:53 AM CDT [facility] ANTIBODY SCREEN NEGATIVE 12:03 PM CDT [facility] SAMPLE EXPIRATION 07/22/2025,23 59 07/19/2025 7:13 AM CDT [facility] BB COMMENT NO HISTORY OF TRANSFUSIONS, OR ANTIBODIES, NEW SPECIMEN NOT NEEDED 07/19/2025 7:13 AM CDT [facility] BLOOD UNIT NUMBER [id number] 07/19/2025 8:21 AM CDT [facility] PRODUCT: PC LEUKOPOOR 07/19/2025 8:21 AM CDT [facility] UNIT DIVISION 00 07/19/2025 8:21 AM CDT [facility] BLOOD UNIT STATUS UNIT RELEASED 07/22/2025 6:36 AM CDT [facility] TRANSFUSION STATUS OK TO TRANSFUSE 07/19/2025 8:21 AM CDT [facility] CROSSMATCH COMPATIBLE-EX M 07/19/2025 8:21 AM CDT [facility] 07/05/2025 10:5 0 AM CDT Evelyn Leos CNP BLOOD BANK TEST ORDERABLES Final Result [facility] [address] [place] [address], [place] [phone] * MRSA SCREENING (07/05/2025 10:08 AM CDT) SPEC DESCRIPTION NASAL 07/05/2025 10:02 AM CDT [facility] SPECIAL REQUESTS NO SPECIAL REQUEST 07/05/2025 10:02 AM CDT [facility] CULTURE RESULT NO METHICILLIN RESISTANT STAPHYLOCOCCUS AUREUS ISOLATED 07/06/2025 6:42 AM CDT [facility] SPECIMEN FROM INTERNAL NOSE / Unknown 07/05/2025 10:08 AM CDT 07/05/2025 10:09 AM CDT Howie Leon MD MICROBIOLOGY - GENERAL ORDERABL ES Final Result Performing Organization Address [facility] Co de Phone Number [facility] [address] [place] [address], * URINE BACTERIA CULTURE (07/05/2025 10:08 AM CDT) SPEC DESCRIPTION URINE CLEAN CATCH 07/05/2025 10:01 AM CDT [facility] SPECIAL REQUESTS NO SPECIAL REQUEST 07/05/2025 10:01 AM CDT [facility] CULTURE RESULT NO GROWTH 2 DAYS 07/07/2025 8:14 AM CDT [facility] URINE SPECIMEN OBTAINED BY CLEAN CATCH PROCEDURE / Unknown 07/05/2025 10:08 AM CDT 07/05/2025 10:09 AM CDT Howie Leon MD MICROBIOLOGY - GENERAL ORDERABL ES Final Result Performing Organization Address City/[facility]/ZIP Co de Phone Number [facility] [address] [place] [address], [place] [phone] * ELECTROCARDIOGRAM (06/29/2025 8:54 AM CDT) 06/29/2025 8:54 AM CDT Narrative [facility] - 07/01/2025 7:17 [place] [address] Test Date: 2025-06-29 Pat Name: NATAN JARA Department: 177 Room: Gender: Male Panelbeater: : 1960 Requested By: SAHIL MONTES Order Number: [id number] Reading : Sahil Montes Measurements Intervals [place] Rate: 48 P: 91 WA: 186 QRS: 16 QRSD: 110 T: 159 QT: 429 QTc: 384 Interpretive Statements SINUS BRADY[address]ARDIA ST DEVIATION AND MODERATE T-WAVE ABNORMALITY, CONSIDER LATERAL ISCHEMIA Procedure Note Sahil Montes MD - 07/01/2025 [place] [address] Test Date: 2025-06-29 Pat [facility]: [facility] Department: 177 Room: Gender: Male Panelbeater: : 1960 Requested By: SAHIL MONTES Order Number: [id number] Reading GILES Montes Measurements Intervals [place] Rate: 48 P: 91 WA: 186 QRS: 16 QRSD: 110 T: 159 [...] resultswithin the time period is included. 06/14/2025 [facility] Scanned SCANNING Final Resu lt * OUTSIDE LAB (SCAN ORDER) (06/14/2025) 06/14/2025 [facility] Scanned SCANNING Final Resu lt * IMAGE GENERIC (06/14/2025) Anatomical Region Laterality Modality Other 06/14/2025 [facility] Scanned SCANNING Final Resu lt * PROCEDURE GENERIC (SCAN ORDER) (06/14/2025) 06/14/2025 [facility] Scanned SCANNING Final Resu lt * (ABNORMAL) COMPREHENSIVE METABOLIC PANEL (06/11/2025 1:25 PM CDT) SODIUM S/P/B 141 136 - 145 MMOL/L 06/12/2025 11:17 AM CDT [facility] POTASSIUM S/P/B 4.5 3.5 - 5.1 MMOL/L 06/12/2025 11:17 AM CDT -[facility] CHLORIDE S/P/B 104 98 - 107 MMOL/L 06/12/2025 11:17 AM CDT -[facility] CO2 26.4 21 - 32 MMOL/L 06/12/2025 11:17 AM CDT [facility] GLUCOSE 100(H) 70 - 99 MG/DL 06/12/2025 11:17 AM CDT [facility] BUN 20(H) 7 - 18 MG/DL 06/12/2025 11:17 AM CDT [facility] CREATININE S/P/B 1.38(H) 0.70 - 1.30 MG/DL 06/12/2025 11:17 AM T [facility] CALCIUM S/P/B 9.3 8.4 - 10.5 MG/DL 06/12/2025 11:17 AM [facility] BILIRUBIN TOTAL S/P/B 0.8 0.2 - 1.0 MG/DL 06/12/2025 11:17 AM [facility] ALKALINE PHOSPHATASE S/P/B 49 45 - 115 U/L 06/12/2025 11:17 AM CDT [facility] AST 20 15 - 37 U/L 06/12/2025 11:17 AM T [facility] ALT 26 16 - 63 U/L 06/12/2025 11:17 AM [facility] TOTAL PROTEIN S/P/B 7.5 6.4 - 8.2 G/DL 06/12/2025 11:17 AM [facility] ALBUMIN S/P/B 4.0 3.4 - 5.0 G/DL 06/12/2025 11:17 AM [facility] ANION GAP 10.6 5 - 15 MMOL/L 06/12/2025 11:17 AM [facility] Comment:REFERENCE RANGE NOT ESTABLISHED OSMOLALITY (CALC) 295 MOSM/KG 025 11:17 AM T [facility] Comment:REFERENCE RANGE NOT ESTABLISHED GFR ESTIMATE 56(L) >90 ML/MIN/1. 73 M2 06/12/2025 11:17 AM [facility] GFR NOTES GFR REFERENCE S: 06/12/2025 11:17 AM [facility] Comment: THE ESTIMATED GFR IS CALCULATED [...] CDT Sahil Montes MD LABORATORY Final Result [facility] [address] [place] [address], * LIPID PANEL (06/11/2025 1:25 PM CDT) CHOLESTEROL 140 <200 MG/DL 06/12/2025 11:17 AM CDT [facility] TRIGLYCERIDES 110 <150 MG/DL 06/12/2025 11:17 AM CDT [facility] HDL 42 >40 MG/DL 06/12/2025 11:17 AM CDT [facility] LDL-C 76 <100 MG/DL 06/12/2025 11:17 AM CDT [facility] VLDL CALCULATION 22 5 - 28 MG/DL 06/12/2025 11:17 AM CDT [facility] CHOL/HDL RATIO 3.3 0.0 - 4.0 06/12/2025 11:17 AM CDT [facility] LDL/HDL 1.8 0.41 - 2.13 06/12/2025 11:17 AM CDT [facility] NON HDL CHOLESTEROL 98 <140 MG/DL 06/12/2025 11:17 AM CDT [facility] 06/11/2025 1:2 5 PM CDT Sahil Montes MD LABORATORY Final Result [facility] [place] [address] [facility] [address] [place] [place] [address], * HEMOGLOBIN, GLYCOSYLATED (06/11/2025) HGB A1C 5.9 % [facility] 06/11/2025 Godfrey Carvajal MD LABORATORY Final Result [facility] [address] [place] [address], [place] * CT ABD+PEL WO CON (05/11/2025 [...] 1:45 PM Narrative 05/11/2025 2:[address] PM [address]T [address] [place] [address] EXAMINATION: CT Abdomen and Pelvis without contrast [...] Procedure Note Toni Alex MD - 05/11/[address] [address] EXAMINATION: CT Abdomen and Pelvis without contrast [...] Med Group Scanned SCANNING Final Resu lt [facility] ON[facility] from Last 3 Months or Most Recently Relevant to Health Maintenance Insurance [facility] MEDICARE Advance Directives Documents on File Type Date Recorded Patient Emergency Medicine Expl anation Legal Documents 12/13/2018 Legal Documents [...] 7:47 PM 07/10/2023 11:08 PM Care Teams Supply Chain Coordinator Relationship Specialty Start Date End Date Godfrey Carvajal MD [address] [place] [address] PCP - General 12/23/14
--- OUTSIDE RECORDS SUMMARY | 2025-09-04 23:15 | XMS_ITS | Encounter Summary ---
Author Organization [facility] Facility Care Team Providers Care Barrel Inspector Tight Name Role Phone Godfrey Abrams MD Primary Care Provider Kyle Davey MD Unavailable [phone] Encounter Details Date Type Department Care Team (Latest Contact Info) Description 03/25/2016 Orders Only [facility] CLINCONV ProviderMaria De Jesus MD [address] [place] [address] Social History Tobacco Use Types Packs/Day Years Used Date Smoking Tobacco: Never Assessed Sex and Gender Information Value Date Recorded Sex Assigned at Not on file Legal Sex Male 10:16 AM FORM SETTER HELPER Gender Identity Not on file Sexual Orientation [...] on filedocumented in this encounter Care Teams Barrel Inspector Tight Relationship Specialty Start Date End Date Godfrey Abrams MD PCP - General Internal Medicine 06/15/18 Kyle Davey MD [address] [facility] [address] [address] Consulting Physician Vascular Surgery 01/31/25 documented as of this encounter
--- OUTSIDE RECORDS SUMMARY | 2025-09-04 23:15 | XMS_ITS | Encounter Summary ---
Author Organization [facility] Facility Care Team Providers Care General Assistant Name Role Phone Godfrey Abrams MD Primary Care Provider [phone] Kyle Davey MD Unavailable [phone] Encounter Details Date Type Department Care Team (Latest Contact Info) Description 01/06/2017 Orders Only [facility] CLINCONV ProviderMaria De Jesus MD [address] [place] [address] Social History Tobacco Use Types Packs/Day Years Used Date Smoking Tobacco: Never Assessed Sex and Gender Information Value Date Recorded Sex Assigned at Not on file Legal Sex Male 10:16 AM LIBRARY SALES CONSULTANT Gender Identity Not on file Sexual Orientation [...] on filedocumented in this encounter Care Teams General Assistant Relationship Specialty Start Date End Date Godfrey Abrams MD PCP - General Internal Medicine 06/15/18 Kyle Davey MD [address] [facility] [place] [address] Consulting Physician Vascular Surgery 01/31/25 documented as of this encounter
--- OUTSIDE RECORDS SUMMARY | 2025-09-04 23:15 | XMS_ITS | Clinical Summary ---
Author Organization [facility] Address [address] [place] [address] Phone Care Team Providers Care Highway Engineer Name Role Phone Godfrey Abrams MD Primary Care Provider [phone] Kyle Davey MD Unavailable [phone] Allergies No known active allergies Medications allopurinol [...] effective and caused headache. Current use of penitentiary anticoagulation 010 Chronic systolic CHF (congestive heart failure) DM (diabetes mellitus), type 2 with peripheral vascular complications Gout Neuropathy PVD (peripheral vascular disease) Encounters Date Type Department Care Team Description 08/10/2025 9:15 AM CARTOON DESIGNER Office Visit [facility] [address] [place] [address] [address] [place] [address] Zheng Patiño, MTHFR mutation (methylenetetrahydrof olate reductase) 07/31/2025 11:00 AM CARTOON DESIGNER Orders Only [facility] [address] [facility] [place] [address] [place] [address] 07/10/2025 11:30 AM CDT Orders Only [facility] [address] [facility] [address] [place] [address] [place] [address] 06/26/2025 11:15 AM CDT Orders Only [facility] [address] [place] [address] [address] [place] [address] 06/12/2025 11:15 AM CDT Orders Only [facility] Wound Care [address] [place] [address] from Last 3 Months Immunizations Immunization Administration [...] possible intervention; Surgeon: Aleksander Power MD; Location: [facility] CARDIAC LANDFILL ATTENDANT; Service: Vascular; Laterality: Right; Medical devices from this surgery are in the Medical Devices section. CARDIAC CATHETERIZATION 01/23/2025 N/A Procedure: AORTOGRAM ABDOMINAL S&I [id number]; Surgeon: Aleksander Power MD; Location: [facility] CARDIAC LANDFILL ATTENDANT; Service: Vascular; Laterality: N/A; Medical devices from this surgery are in the Medical Devices section. AMPUTATION OF REPLICATED TOES 12/26/2024 - 01/24/2025 Right KIDNEY SURGERY 07/19/2025 kidney removal Medical History Medical History Date Comments PVD (peripheral vascular disease) Arthritis Ruptured lumbar disc HTN (hypertension) Hyperlipidemia Neuropathy Gout Obstructive sleep apnea on CPAP Pulmonary nodule Polyp, intestinal 12/2024 Chronic systolic CHF (congestive heart failure) ([facility]) Paroxysmal atrial fibrillation (HCC) 07/13/2023 NSTEMI (non-ST elevated myocardial infarction) ( [facility]) 07/09/2023 Coronary artery disease DM (diabetes mellitus), [...] experiencing loneliness or isolatio n Never 02/03/2025 [facility] [employer] Answer Date Recorded In the past 12 months has [employer], oil, or water [employer] threatened to shut off services in your [...] often do you attend chur ch or cheondoism services? Never 01/19/2025 Do you belong to [...] any time in the past 12 m [facility], were you homeless or living in a residential (including now)? No 01/19/2025 AUDIT-C Answer Date [...] on file Legal Sex Male 10:16 AM CARTOON DESIGNER Gender Identity Not on file Sexual Orientation Not on file Last Filed Vital Signs Vital Sign Reading Time Taken Comments Blood Pressure 130/62 08/10/2025 9:16 AM CARTOON DESIGNER Pulse 68 08/10/2025 9:16 AM CARTOON DESIGNER Temperature 36.8 C (98.3 F) 08/10/2025 9:16 AM CARTOON DESIGNER Respiratory Rate 16 08/10/2025 9:16 AM CARTOON DESIGNER Oxygen Saturation 97% 08/10/2025 9:16 AM CARTOON DESIGNER Inhaled Oxygen Concentration - - Weight 103.7 kg (228 lb 9.9 oz) 08/10/2025 9:16 AM CARTOON DESIGNER Height 187 cm (6' 1.62) 08/10/2025 9:16 AM CARTOON DESIGNER Body Mass Index 29.65 08/10/2025 9:16 AM CARTOON DESIGNER Plan of Treatment Health Maintenance Due Date [...] 05/11/2025, 01/18/2025 Medical Devices Implanted Type Area Helper Animal Laboratory Device Identifier Shelf Expiration Date Model / Serial / Lot Recinos Vascular System Closure Repair Femoral Artery Suture Mediated Perclose Prostyle 51629-50 - Sn/A - [id number] Implanted:Qty: 1 on 01/23/2025 by Aleksander Power MD at [facility] Other - see comments Left: Femoral [employer] Vascular 10/27/2026 74768-32 / N/A / [id number] Recinos Vascular System Closure Repair Femoral Artery Suture Mediated Perclose Prostyle 37302-86 - Sn/A - [id number] Implanted:Qty: 1 on 01/23/2025 by Aleksander Power MD at [facility] Other - see comments Left: Femoral [employer] Vascular 10/27/2026 47659-97 / N/A / [id number] Procedures Procedure Name Priority Date/Time Associated Diagnosis [...] ORDERABLES Final R esult Performing Organization Address City/[facility] Co de Phone Number [facility] [address] [place] [address] * (ABNORMAL) Hemoglobin A1c (01/22/2025 11:02 AM CDT) Hgb A1C 9.9(H) 4.0 - 5.6 % Estimated Average Glucose 237 mg/dL [facility] Comment: The ADA recommends reporting an estimated Average Glucose (eAG) with all Hemoglobin A1c results using the equation derived from a study of 507 normal and diabetic adults. Minority populations were underrepresented and children were not included. (Diabetes Care 31:9495-0716, 2008). The eAG is not equivalent to a fasting glucose. Blood 01/22/2025 11:0 2 AM CDT 01/22/2025 11:08 AM CDT Hitesh Schroeder MD LAB BLOOD ORDERABLES Final R esult Performing Organization Address City/[facility] Co de Phone Number [facility] [address] [facility] Department [place] [address] * CTA Abdominal Aorta And Bilateral Iliofemoral [...] Camilo Armendariz M.D. BUBBA T: Report ID: [id number] Reading Location: [id number] Procedure Note Jaquan Armendariz MD - 01/18/2025 [...] Camilo Armendariz M.D. BUBBA T: Report ID: [id number] Reading Location: [id number] us Jules Zapata MD IMG CT PROCEDURES [...] lung have resolved. CORONARY ARTERY CALCIFICATION: Dense tunica-biloxi coronary artery calcification. OTHER: Curvilinear scarring in [...] by Zane Novoa M.D. T: Report ID: [id number] Reading Location: [id number] Procedure Note Zane Novoa Jr., MD - [...] lung have resolved. CORONARY ARTERY CALCIFICATION: Dense tunica-biloxi coronary arterycalcification. OTHER: Curvilinear scarring in the [...] by Zane Novoa M.D. T: Report ID: [id number] Reading Location: [place] [address] us Abdulsalam Jamous MD IMG CT PROCEDURES [...] 03/13/2020 8:09 AM CDT Performed at: - Lab[address] [id number] Teacher: Ammon Bustos PhD, Phone: [phone] us Eric Dong MD LAB BLOOD ORDERABLES Final R esult Performing Organization Address City/State/[facility] Co de Phone Number [facility] - 01 from Last 3 Months or Most Recently Relevant to Health Maintenance Insurance [facility] MEDICARE [facility] MEDICARE Address[facility] [address] [place] [address] [facility] MEDICARE ADVANTAGE [facility] MEDICARE Address: [address] [place] [address] [facility] MEDICARE [facility]AGE [facility] MEDICARE Address: [address] [address] [place] [address] Advance Directives For more information, please contact: [phone] Documents on File Type Date Recorded Patient Watch Hairspring Assembler Expl anation ADVANCE DIRECTIVE 11/27/2014 12:00 AM POWER OF TRIAL MANAGER FINANCIAL/MEDICAL * Full Code (Latest Code Status on File) Date Activated Date Inactivated Comments 01/18/2025 10:24 PM 01/31/2025 9:[address] Engineer Relationship Specialty Start Date End Date Godfrey Abrams MD PCP - General Internal Medicine 06/15/18 Kyle Davey MD [address] [facility] [address] [address] Consulting Physician Vascular Surgery 01/31/25
--- OUTSIDE RECORDS SUMMARY | 2025-09-04 23:15 | XMS_ITS | Encounter Summary ---
Author Organization [facility] Facility Care Team Providers Care Tooth Inspector Name Role Phone Godfrey Abrams MD Primary Care Provider [phone] Kyle Davey MD Unavailable [phone] Encounter Details Date Type Department Care Team (Latest Contact Info) Description 01/18/2018 Orders Only [facility] CLINCONV ProviderMaria De Jesus MD [address] [place] [address] Social History Tobacco Use Types Packs/Day Years Used Date Smoking Tobacco: Never Assessed Sex and Gender Information Value Date Recorded Sex Assigned at Not on file Legal Sex Male 10:16 AM STUDENT LIAISON OFFICER Gender Identity Not on file Sexual Orientation [...] on filedocumented in this encounter Care Teams Tooth Inspector Relationship Specialty Start Date End Date Godfrey Abrams MD PCP - General Internal Medicine 06/15/18 Kyle Davey MD [address] [facility] [facility] [place] [address] Consulting Physician Vascular Surgery 01/31/25 documented as of this encounter
--- OUTSIDE RECORDS SUMMARY | 2025-09-04 23:15 | XMS_ITS | Encounter Summary ---
Author Organization [facility] Address [address] [facility] [address] [place] [address] Care Team Providers Care Cap Blocker Name Role Phone Godfrey Abrams MD Primary Care Provider [phone] Kyle Davey MD Unavailable [phone] Encounter Details Date Type Department Care Team (Late st Contact Info) Description 01/23/2015 Orders Only [facility] Information Management [address] [place] [address] Scanning, Provider Social History Tobacco Use Types Packs/Day Years Used Date Smoking Tobacco: Never Assessed Sex and Gender Information Value Date Recorded Sex Assigned at Not on file Legal Sex Male 10:16 AM LABOR RELATIONS ANALYST Gender Identity Not on file Sexual Orientation [...] on filedocumented in this encounter Care Teams Cap Blocker Relationship Specialty Start Date End Date Godfrey Abrams MD PCP - General Internal Medicine 06/15/18 Kyle Davey MD [address] [address] Consulting Physician Vascular Surgery 01/31/25 documented as of this encounter
--- OUTSIDE RECORDS SUMMARY | 2025-09-04 23:15 | XMS_ITS | Encounter Summary ---
Author Organization [facility] Address [facility] [place] [address] Care Team Providers Care Head Stock Operator Name Role Phone Godfrey Abrams MD Primary Care Provider [phone] Jodi Ortiz RN Unavailable Unavailable Encounter Details Date Type Department Care Team (Late st Contact Info) Description 05/15/2024 [employer] Message Enc [facility] [address] [address] Mychart, [facility] Provider warfarin/lovenox instructions Social History [...] How often do you attend chur or jew services? Never 02/04/2023 Do you belong to any clubs o r organizations such as scientologist groups, unions, fraternal or athletic groups, or [...] Recorded Patient Health Questionnaire-2 Score 0 11/23/2023 [facility] [place] of Occupat ional Health - Occupational Stress [...] st Contact Info) Description 10/01/2025 10:20 AM PULL OVER MACHINE OPERATOR Office Visit [facility] Family & Internal Medicine - [address] [address] Godfrey Abrams MD [address] [place] [address] 11/02/2025 9:00 AM PULL OVER MACHINE OPERATOR Office Visit [facility] [address] Jessee Anderson MD [address] [facility] [address] [place] [address] documented as of this encounter Goals [...] documented as of this encounter Care Teams Head Stock Operator Relationship Specialty Start Date End Date Godfrey Abrams MD [address] [place] [address] PCP - General 09/18/14 Jodi Ortiz, director loan (Ambulatory) REGISTERED NURSE 07/20/2506/28 documented as of this encounter
--- OUTSIDE RECORDS SUMMARY | 2025-09-04 23:15 | XMS_ITS | Encounter Summary ---
Author Organization [facility] Facility Care Team Providers Care Activities Officer Name Role Phone Godfrey Abrams MD Primary Care Provider [phone] Kyle Davey MD Unavailable [phone] Encounter Details Date Type Department Care Team (Latest Contact Info) Description 04/28/2017 Orders Only [facility] CLINCONV ProviderMaria De Jesus MD [address] [place] [address] Social History Tobacco Use Types Packs/Day Years Used Date Smoking Tobacco: Never Assessed Sex and Gender Information Value Date Recorded Sex Assigned at Not on file Legal Sex Male 10:16 AM PRODUCT/INDUSTRY CONSULTANT Gender Identity Not on file Sexual [...] on filedocumented in this encounter Care Teams Activities Officer Relationship Specialty Start Date End Date Godfrey Abrams MD PCP - General Internal Medicine 06/15/18 Kyle Davey MD [address] [facility] [address] [facility] [place] [address] Consulting Physician Vascular Surgery 01/31/25 documented as of this encounter
--- OUTSIDE RECORDS SUMMARY | 2025-09-04 23:15 | XMS_ITS | Encounter Summary ---
Author Organization [facility] Address [address] [place] [address] Care Team Providers Care Foot Orthopedist Name Role Phone Godfrey Abrams MD Primary Care Provider [phone] Reason for Visit * Reason Onset Date Comments Anticoagulation 09/03/2025 protime Encounter Details Date Type Department Care Team (Latest Contact Info) Description 09/03/2025 [facility] [address] [address] Hali Stephens, RN Anticoagulation (protime) Social History [...] How often do you attend chur or jainism services? Never 02/04/2023 Do you belong to [...] Recorded Patient Health Questionnaire-2 Score 0 01/09/2025 [facility] of Occupat ional Health - Occupational Stress [...] place to sleep or slept in a intermediate (including now)? No 07/11/2023 Humiliation, Afraid, Rape, [...] and heating? Not hard at all 07/19/2025 [facility] of Occupat ional Health - Occupational Stress [...] any time in the past 12 m cox branson, were you homeless or living in a intermediate (including now)? No 07/19/2025 B1300 Health Literacy Answer Date Recor ded How often do you need to hav e someone help you when you read instructions, pamphlets, or other written material from your doctor or pharmacy? Rarely 07/19/2025 [facility] Utilities Answer Date Recorded In the [...] the other days.Repeat the INR in 1wk. O SOUNDING BOARD MATCHER O SOUNDING BOARD MATCHER documented in this encounter Plan of Treatment Upcoming Encounters Date Type Department Care Team (Late st Contact Info) Description 10/01/2025 10:20 AM PIANO SOUNDING BOARD MATCHER Office Visit [facility] Family & Internal Medicine - [address] [phone] Godfrey Abrams MD [address] [place] [address] 11/02/2025 9:00 AM PIANO SOUNDING BOARD MATCHER Office Visit [facility] [phone] Jessee [place] MD 3 [facility] [address] [place] [phone] documented as of this encounter Goals [...] documented as of this encounter Care Teams Foot Orthopedist Relationship Specialty Start Date End Date Godfrey Abrams MD [address] [place] [address] PCP - General 09/18/14 documented as of this encounter
--- OUTSIDE RECORDS SUMMARY | 2025-09-04 23:15 | XMS_ITS | Encounter Summary ---
Author Organization [facility] Address [address] [place] [address] Care Team Providers Care Education Consultant Name Role Phone Godfrey Abrams MD Primary Care Provider [phone] Encounter Details Date Type Department Care Team (Latest Contact Info) Description 08/07/2025 Results Follow-Up [facility] Family & Internal Medicine [place] [id number] [place] [address] Godfrey Abrams MD [address] [place] [address] [phone] HOMOCYSTEINE, RETICULOCYTE CT, AUTO, IRON SAT PANEL [...] week 02/04/2023 How often do you attend [facility] or yarsanism services? Never 02/04/2023 Do you belong to [...] Recorded Patient Health Questionnaire-2 Score 0 01/09/2025 [facility] - Occupational Stress Questionnaire Answer Date Recorded [...] and heating? Not hard at all 07/19/2025 [facility] [place] of Occupat ional Health - Occupational Stress [...] from your doctor or pharmacy? Rarely 07/19/2025 [facility] Utilities Answer Date Recorded In the past [...] levels are improved. Continue with iron supplementation. CATCHER documented in this encounter Plan of Treatment Upcoming Encounters Date Type Department Care Team (Late st Contact Info) Description 10/01/2025 10:20 AM CRAB CATCHER Office Visit [facility] Family & Internal Medicine [address] [phone] Godfrey Abrams MD [facility] [place] [place] [address] 11/02/2025 9:00 AM CRAB CATCHER Office Visit [facility] [phone] [place] [phone] Jessee [place] MD [address] [facility] Suite [facility] [place] [phone] documented as of this encounter Goals Goal [...] documented as of this encounter Care Teams Education Consultant Relationship Specialty Start Date End Date Godfrey Abrams MD [address] [place] [address] PCP - General 09/18/14 documented as of this encounter
--- OUTSIDE RECORDS SUMMARY | 2025-09-04 23:15 | XMS_ITS | Encounter Summary ---
Author Organization [facility] Address [address] [place] [address] Care Team Providers Care Philosophy Instructor Name Role Phone Godfrey Abrams MD Primary Care Provider [phone] Jodi Ortiz RN Unavailable Unavailable Encounter Details Date Type Department Care Team (Late st Contact Info) Description 07/19/2025 Prep for Procedure [facility] [place] [address] Howie Leon MD 3 [facility] [address] [place] [address] Social History Tobacco Use Types [...] week 02/04/2023 How often do you attend [facility] or faith services? Never 02/04/2023 Do you belong to any clubs o r organizations such as mosque groups, unions, fraternal or athletic groups, or [...] Recorded Patient Health Questionnaire-2 Score 0 01/09/2025 [facility] of Occupat ional Health - Occupational [...] and heating? Not hard at all 07/19/2025 [facility] [place] of Occupat ional Health - Occupational Stress [...] from your doctor or pharmacy? Rarely 07/19/2025 [facility] Utilities Answer Date Recorded In the [...] 1:21 PM Edith Jones RN Active * Question Answer Date [...] 7:00 AM Benny East RN Active * [place] Suicide Severity Rating Scale (Screener/Recent Self-Report) Question [...] st Contact Info) Description 10/01/2025 10:20 AM RAILROAD CAR CLEANING SUPERVISOR Office Visit [facility] Family & Internal Medicine - [address] [phone] Godfrey Abrams MD [address] [place] [address] 11/02/2025 9:00 AM RAILROAD CAR CLEANING SUPERVISOR Office Visit [facility] [phone] Jessee [place] MD [address] [place] [phone] documented as of this encounter Goals Goal Patient Goal Type Associated Problems Recent Progress Patient-Stated? Author Family - family caregiver with be involved in care transitions and discharge planning Lifestyle No Tea Sepulveda, RN documented as of this encounter Visit Diagnoses Diagnosis Atrial flutter, unspecified type ([facility])- Primary Acute embolism and thrombosis of deep vein of lower extremity, unspecified laterality ([facility]) Other iron deficiency anemia documented in this encounter Additional Health Concerns Assessment Noted Time PHQ-9 Depression Total Score: 0 03/03/20 21 2:55 PM CDT documented as of this encounter Care Teams Philosophy Instructor Relationship Specialty Start Date End Date Godfrey Abrams MD [address] [place] [address] PCP - General 09/18/14 Jodi Ortiz agricultural production engineer (Ambulatory) REGISTERED NURSE 07/20/2506/28 documented as of this encounter
--- OUTSIDE RECORDS SUMMARY | 2025-09-04 23:15 | XMS_ITS | Encounter Summary ---
Author Organization [facility] Address [address] [place] [address] Care Team Providers Care Vulcan Crewmember Name Role Phone Godfrey Abrams MD Primary Care Provider [phone] Jodi Ortiz RN Unavailable Unavailable Encounter Details Date Type Department Care Team (Late st Contact Info) Description 09/22/2023 [employer] Message Enc [facility] Family & Internal Medicine [address] [phone] [place], [facility] Provider Dilated Diabetic Eye Exam [...] often do you attend chur ch or scientology services? Never 02/04/2023 Do you belong to [...] Recorded Patient Health Questionnaire-2 Score 0 11/19/2022 [facility] [place] of Occupat ional Health - Occupational Stress [...] st Contact Info) Description 10/01/2025 10:20 AM DINKEY ENGINE OPERATOR Office Visit [facility] Family & Internal Medicine - [address] [phone] Godfrey Abrams MD [address] [place] [address] 11/02/2025 9:00 AM DINKEY ENGINE OPERATOR Office Visit [facility] [phone] Jessee [place] MD [address] [place] [address] [place] [phone] documented as of this encounter Goals Goal Patient Goal Type Associated Problems Recent Progress Patient-Stated? Author Family - family caregiver with be involved in care transitions and discharge planning Lifestyle No Tea Sepluveda RN documented as of this encounter Visit Diagnoses Not on filedocumented in this encounter Additional Health Concerns Assessment Noted Time PHQ-9 Depression Total Score: 0 03/03/20 21 2:55 PM CDT documented as of this encounter Care Teams Vulcan Crewmember Relationship Specialty Start Date End Date Godfrey Abrams MD [address] [place] [address] PCP - General 09/18/14 Jodi Ortiz, lead solutions architect (Ambulatory) REGISTERED NURSE 07/20/2506/28 documented as of this encounter
--- OUTSIDE RECORDS SUMMARY | 2025-09-04 23:15 | XMS_ITS | Encounter Summary ---
Author Organization [facility] Address [facility] [place] [address] Care Team Providers Care Night Stocker Name Role Phone Godfrey Abrams MD Primary Care Provider [phone] Jodi Ortiz RN Unavailable Unavailable Encounter Details Date Type Department Care Team (Late st Contact Info) Description 07/02/2025 [employer] Message Enc [facility] [address] [address] [employer], [facility] Provider warfarin/lovenox instructions Social History Tobacco Use [...] any clubs o r organizations such as jain groups, unions, fraternal or athletic groups, or [...] Recorded Patient Health Questionnaire-2 Score 0 01/09/2025 [facility] [place] of Occupat ional Health - Occupational Stress [...] place to sleep or slept in a longterm (including now)? No 07/11/2023 Sex and Gender [...] 10:16 AM Jessica Doan RN Active * [place] Suicide Severity Rating Scale (Screener/Recent Self-Report) Question [...] st Contact Info) Description 10/01/2025 10:20 AM GEOLOGICAL AIDE Office Visit [facility] Family & Internal Medicine - [address] [phone] Godfrey Abrams MD [address] [place] [address] 11/02/2025 9:00 AM GEOLOGICAL AIDE Office Visit [facility] [phone] Jessee [place] MD [address] [place] [phone] documented as of this encounter Goals Goal [...] documented as of this encounter Care Teams Night Stocker Relationship Specialty Start Date End Date Godfrey Abrams MD [address] [place] [address] PCP - General 09/18/14 Jodi Ortiz, tennis camp instructor (Ambulatory) REGISTERED NURSE 07/20/2506/28 documented as of this encounter
[2025-09-04 23:49] LABS: Hematocrit 30.9 % (42.0-52.0); Hemoglobin 10.4 g/dL (14.0-18.0); Immature Granulocyte Percent A 0.5 % (0-0.5); Lymphocytes Absolute Auto 1.01 K/mm3 (0.9-3.2); Mean Corpuscular HGB Conc 33.7 g/dl (32-36); Mean Corpuscular Hemoglobin 32.7 pg (26-34); Mean Corpuscular Volume 97.2 fl (80-100); Nucleated Red Blood Cells Absolute Auto 0.000 K/mm3 (0.0-0.012); Nucleated Red Blood Cells Perc 0.0 % (0.0-0.2); Platelet Count Result 173 k/mm3 (150-375); Red Blood Count 3.18 M/mm3 (4.6-6.20); White Blood Count 8.5 K/mm3 (4.5-10.0)
[2025-09-05 00:03] LABS: Alanine Aminotransferase 24 U/L (6-50); Albumin Level 4.1 g/dL (3.5-5.1); Alkaline Phosphatase 53 U/L (38-126); Anion Gap 8 mmol/L (4-12); Aspartate Amino Transferase 22 U/L (17-59); Bilirubin,Total 0.3 mg/dL (0.2-1.3); Blood Urea Nitrogen 49 mg/dL (9-20); Calcium 9.4 mg/dL (8.4-10.2); Carbon Dioxide 20 mmol/L (22-30); Chloride 109 mmol/L (98-107); Estimated Glomerular Filt Rate 20; Glucose 166 mg/dL (65-110); INR 1.8; Potassium 4.6 mmol/L (3.4-5.0); Prothrombin Time 20.1 Seconds (11.1-14.7); Sodium 137 mmol/L (137-145); Total Protein 7.1 g/dL (6.3-8.2)
[2025-09-05 00:04] LABS: Partial Thromboplastin Time 37.0 Seconds (22.3-36.8)
[2025-09-05 00:06] LABS: Appearance Urine Turbid (Clear)
[2025-09-05 00:07] LABS: Glucose Urine UA Negative (Negative); Specific Grav Ur 1.015 (1.001-1.035)
[2025-09-05 00:08] LABS: Nitrate Urine Negative (Negative)
[2025-09-05 00:09] LABS: Leukocyte Esterase Ur 1+ LEU/UL (Negative)
[2025-09-05 00:11] LABS: Add Urine Microscopic? YES
[2025-09-05 01:10] VITALS: BP 129/70; PULSE 85; RESP 16; O2SAT 96
--- NOTE | 2025-09-05 02:17 | ED.GENADULT ---
HPI - General Adult General Chief complaint: Urogenital-Male Stated complaint: urinary retention Time Seen by Provider: 09/04/25 22:17 History of Present Illness HPI narrative: 64-year-old male presenting with acute urinary retention. 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 Patient states he sees urologist Dr. Leon. He reports that hematuria began on Wednesday before . He endorses that the bleeding began to taper over the next week and then after doing some heavy lifting this last Wednesday it started back again. He states that it had nearly resolved Wednesday but scheduled an appointment with his urologist just to check in. He received CBI at the urologist's office and reports he has not been able to urinate since. He denies nausea/vomiting, fevers/chills, or chest pain/shortness of breath. Related Data Home Medications ?Medication ?Instructions ?Recorded ?Confirmed ?Last Taken ?Type allopurinol 300 mg tablet 300 mg PO DAILY 07/09/23 06/01/25 12/18/24 History atorvastatin 40 mg tablet 40 mg PO HS 07/09/23 06/01/25 12/18/24 History folic acid 1 mg tablet 1 mg PO DAILY 07/09/23 06/01/25 12/18/24 History gabapentin 600 mg tablet 600 mg PO DAILY 07/09/23 06/01/25 12/18/24 History metoprolol succinate 100 mg 75 mg PO DAILY 07/09/23 06/14/25 06/14/25 History tablet,extended release 24 hr pantoprazole 40 mg tablet,delayed 40 mg PO DAILY 07/09/23 06/01/25 12/18/24 History release warfarin 5 mg tablet 5 mg PO DAILY 07/09/23 06/14/25 06/06/25 History Held on 06/14/25. Instructions: Resume on 06/15/25. sacubitril 24 mg-valsartan 26 mg 1 tablet PO BID 07/04/24 06/01/25 12/18/24 History tablet (Entresto) spironolactone 25 mg tablet 25 mg PO DAILY 07/04/24 06/01/25 12/18/24 History aspirin 81 mg tablet 81 mg PO DAILY 12/12/24 06/14/2525 History Held on 06/14/25. Instructions: Resume on 06/15/25. enoxaparin 100 mg/mL subcutaneous 100 mg subcut BID Coumadin Bridging 12/19/24 06/14/25 06/13/25 History syringe Held on 06/14/25. Instructions: Resume on 06/15/25. cholecalciferol (vitamin D3) 125 125 mcg PO DAILY 06/01/25 06/01/25 Unknown History mcg (5,000 unit) tablet (Vitamin D3) psyllium husk 0.4 gram capsule 0.4 g PO DAILY 06/01/25 06/01/25 Unknown History (Daily Fiber) vitamin B complex (Balanced B-50 1 tablet PO DAILY 06/01/25 06/01/25 Unknown History tablet) Allergies Allergy/AdvReac Type Severity Reaction Status Date / Time No Known Allergies Allergy Verified 09/04/25 21:21 Review of Systems Review of Systems: All systems reviewed & are unremarkable except as noted in HPI and below PMFSH Past Medical History Medical History Abnormal CT scan GERD (gastroesophageal reflux disease) Tobacco use Peripheral neuropathy Cardiomyopathy ETHEL (obstructive sleep apnea) HLD (hyperlipidemia) Chronic anticoagulation MTHFR gene mutation Surgical History Surgical History S/P CABG x 4 Family History Family History Mother Diabetes mellitus Colon cancer Breast cancer Mother No problems noted. Sibling Malignant neoplasm of prostate Other Family history of malignant neoplasm Hypertension Social History Social History Smoking packs per day: 1 Smoking cigarettes per day: 20.0 Years smoked: 40 Smoking pack-years: 40.00 Smoking status: Former smoker Tobacco type: cigarettes Smoking end date: 07/19/23 Additional smoking assessment comments: states he had cut back smoking less than 1 pkg/day in last couple of years Alcohol intake: current Drinks per week: 3 Substance use: current Substance use type: marijuana and other Other substance usage details: edibles daily /Medical marijuana for pain relief Last use: 07/08/23 10pm medical marijuana Lack of Transportation: No Lack of Food: Never True Current Housing: I Have Housing Concerned About Future Housing: No Difficulty Paying Gas/Electric Bills: No Difficulty Paying for Meds: No Currently Unemployed: No Education: Trade/Vocational Certificate Difficulty w/ Childcare or Family Care: No Living arrangements: with family Additional living arrangements comments: Spiritual care concerns: No Exam Narrative: GENERAL: No acute distress. HEAD: Normocephalic, atraumatic. EYES: PERRLA and EOMI. ENT: Nares clear, no rhinorrhea or epistaxis. Mucous membranes moist. Oropharynx without tonsillar hypertrophy exudate or other lesions. Bilateral TMs pearly calvert non-bulging NECK: Supple. No adenopathy or masses. No carotid bruits or JVD CHEST: Clear to auscultation. No respiratory distress. No wheezes rales or rhonchi HEART: Regular rate and rhythm. No murmur heard. Normal peripheral pulses. ABDOMEN: Soft, nontender, nondistended, normal active bowel sounds. EXTREMITIES: Normal range of motion. No edema. SKIN: Warm, dry, no rash. NEURO: No focal deficits. Alert and oriented x3. PSYCH: Normal mood and affect Course Vital Signs Vital signs: Vital Signs Temperature 97.3 F L 09/04/25 21:26 Pulse Rate 79 09/04/25 21: Respiratory Rate 20 09/04/25 21: Blood Pressure 176/93 H 09/04/25 21:26 Pulse Oximetry 99 09/04/25 21:26 Oxygen Delivery Room Air 09/04/25 21:26 Temperature 97.3 F L 09/04/25 21:26 Pulse Rate 85 09/05/25 01:10 Respiratory Rate 16 09/05/25 01:10 Blood Pressure 129/70 09/05/25 01:10 Pulse Oximetry 96 09/05/25 01:10 Oxygen Delivery Room Air 09/04/25 21:26 MDM MDM Narrative Medical decision making narrative: 64-year-old male presenting with acute urinary retention. 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 Patient states he sees urologist Dr. Leon. He reports that hematuria began on Wednesday before . He endorses that the bleeding began to taper over the next week and then after doing some heavy lifting this last Wednesday it started back again. He states that it had nearly resolved Wednesday but scheduled an appointment with his urologist just to check in. He received CBI at the urologist's office and reports he has not been able to urinate since. He denies nausea/vomiting, fevers/chills, or chest pain/shortness of breath. The patient is on Warfarin for a chronic clotting disorder and was instructed by his clinic to stop the warfarin today until further notice. Upon my initial assessment, patient is unable to sit still and appears very uncomfortable. Bladder scan demonstrated 800 mL of urine retained in his bladder. CBI was initiated and the patient expelled approximately 1500 mL of urine. The urine was dark red without clots. Upon my reassessment soon after CBI the patient reports feeling much better. Discussed with Dr. Samaniego with urology patient presentation and workup. He advised speaking with the patient and his about waiting for CT and being admitted for further workup vs. going home with the Steinberg catheter and following up closely with his urologist the next day. After a thorough discussion and shared medical decision making he decided to go home with the catheter and have close follow-up with his urologist. His lab work was discussed including his increased creatinine, BUN, and GFR. He declined fluids stating he would increase his oral intake and discuss all the findings with his urologist. Other labs are unremarkable. All questions were answered to the patient's satisfaction. Given reasons to return. Differential Diagnosis Differential Diagnosis: Differential diagnostic considerations for male genitourinary issues include urinary tract infection, priapism, epididymitis, prostatitis, acute retention of urine, inguinal hernia, STI exposure, testicular torsion, Kendall's gangrene. Medical Records I have reviewed the following patient records and this information was taken into consideration when formulating the assessment and plan.: previous labs and previous ER visits Lab Data MDM Lab Attestation statement: I personally reviewed the patient's lab results. 09/04/25 23:36 09/04/25 23:36 Labs: Lab Results 09/04/25 Range/Units 23:36 WBC 8.5 (4.5-10.0) K/mm3 RBC 3.18 L (4.6-6.20) M/mm3 Hgb 10.4 L (14.0-18.0) g/dL Hct 30.9 L (42.0-52.0) % MCV 97.2 (80-100) fl MCH 32.7 (26-34) pg MCHC 33.7 (32-36) g/dl RDW 15.4 H (11.5-14.5) % Plt Count 173 (150-375) k/mm3 MPV 10.4 (7.4-10.4) fl Immature Gran % (Auto) 0.5 (0-0.5) % Neut % (Auto) 79.0 H (45.5-73.1) % Lymph % (Auto) 11.9 L (18.3-44.2) % [place] % (Auto) 6.3 (2.6-8.5) % Eos % (Auto) 1.8 (0-4.4) % Baso % (Auto) 0.5 (0.2-1.2) % Lymph # (Auto) 1.01 (0.9-3.2) K/mm3 [place]ander # (Auto) 0.5 (0.1-0.6) K/mm3 Eos # (Auto) 0.2 (0-0.3) K/mm3 Baso # (Auto) 0.0 (0.0-0.1) K/mm3 Abs Immat Gran (auto) 0.04 H (0.00-0.031) K/mm3 Absolute Neuts (auto) 6.7 (1.3-6.7) K/mm3 Absolute Nucleated RBC 0.000 (0.0-0.012) K/mm3 Nucleated RBC % 0.0 (0.0-0.2) % PT 20.1 H (11.1-14.7) Seconds INR 1.8 APTT 37.0 H (22.3-36.8) Seconds Sodium 137 (137-145) mmol/L Potassium 4.6 (3.4-5.0) mmol/L Chloride 109 H (98-107) mmol/L Carbon Dioxide 20 L (22-30) mmol/L Anion Gap 8 (4-12) mmol/L BUN 49 H D (9-20) mg/dL Creatinine 3.10 H (0.7-1.3) mg/dL Estim Creat Clear Calc Not Reportable Estimated GFR 20 L (59 - ) Glucose 166 H (65-110) mg/dL Calcium 9.4 (8.4-10.2) mg/dL Total Bilirubin 0.3 (0.2-1.3) mg/dL AST 22 (17-59) U/L ALT 24 (6-50) U/L Alkaline Phosphatase 53 (38-126) U/L Total Protein 7.1 (6.3-8.2) g/dL Albumin 4.1 (3.5-5.1) g/dL Urine Color Red H (Yellow) Urine Appearance Turbid H (Clear) Urine pH 6.5 (5.0-9.0) Ur Specific [place] 1.015 (1.001-1.035) Urine Protein 3+ H (Negative) mg/dL Urine Glucose (UA) Negative (Negative) mg/dL Urine Ketones Negative (Negative) mg/dL Ur Blood (Man) 3+ H (Negative) Urine Nitrate Negative (Negative) Urine Bilirubin Negative (Negative) Urine Urobilinogen 0.2 (<2.0) mg/dL Leukocyte Esterase Rfl 1+ H (Negative) NOAM/UL Urine RBC >100 H (0-2) /hpf Urine WBC 6-10 H (0-3) /hpf Ur Squamous Epith Cells Rare (Few) /hpf Urine Bacteria 2+ /hpf Discharge Plan Discharge Clinical Impression: Acute retention of urine, Hematuria Patient Disposition: Home Condition: Stable Instructions: Urinary Retention in Men (ED), Hematuria (ED) Additional Instructions: Return to the emergency department if you experience fever, chest pain, shortness of breath, abdominal pain with nausea and vomiting, weakness, numbness/tingling, or any other symptoms that are concerning to you. Follow-up with your urology team tomorrow. Push fluids as discussed. Follow up with primary care doctor for any other general concerns. Patient Language: Maltese Prescriptions: No Action Entresto 24-26 mg tablet 1 tablet PO BID spironolactone 25 mg tablet 25 mg PO DAILY Patient Comments: am cholecalciferol (vitamin D3) [Vitamin D3] 125 mcg (5,000 unit) tablet 125 mcg PO DAILY vitamin B complex [Balanced B-50] Tablet 1 tablet PO DAILY psyllium husk [Daily Fiber] 0.4 gram capsule 0.4 g PO DAILY hydrocodone-acetaminophen 5-325 mg tablet 1 - 2 tablet PO Q6H PRN (Reason: pain) Qty: 20 0RF ketorolac 10 mg tablet 10 mg PO Q6H 5 Days Qty: 20 0RF ondansetron 4 mg tablet,disintegrating 4 mg PO Q6H Qty: 14 0RF atorvastatin 40 mg tablet 40 mg PO HS gabapentin 600 mg tablet 600 mg PO DAILY metoprolol succinate 100 mg tablet extended release 24 hr 75 mg PO DAILY Patient Comments: 1.5 tabs daily am pantoprazole 40 mg tablet,delayed release (DR/EC) 40 mg PO DAILY warfarin 5 mg tablet 5 mg PO DAILY Patient Comments: HOLD 7DAYS PRIOR PER DR SARAVIA folic acid 1 mg tablet 1 mg PO DAILY allopurinol 300 mg tablet 300 mg PO DAILY aspirin 81 mg tablet 81 mg PO DAILY Patient Comments: hold 7 DAYS PRIOR PER MANJIT enoxaparin 100 mg/mL syringe 100 mg subcut BID Patient Comments: PER DR GAYLE PREOP Follow-up/Referrals: Jose Alberto,Godfrey Brumfield MD [Primary Care Provider]
== END 2025-09-05 01:06 | disposition home or self-care (01) ==
PROVIDERS: PCP Internal Medicine
DX: R33.9 Retention of urine, unspecified (principal); R31.9 Hematuria, unspecified; C66.2 Malignant neoplasm of left ureter; I42.9 Cardiomyopathy, unspecified; E78.5 Hyperlipidemia, unspecified; K21.9 Gastro-esophageal reflux disease without esophagitis; G62.9 Polyneuropathy, unspecified; G47.33 Obstructive sleep apnea (adult) (pediatric); Z95.1 Presence of aortocoronary bypass graft; Z87.891 Personal history of nicotine dependence; Z90.5 Acquired absence of kidney; Z90.6 Acquired absence of other parts of urinary tract; Z79.82 Long term (current) use of aspirin; Z79.899 Other long term (current) drug therapy
CPT/HCPCS: 36415; 51702; 80053; 81001; 85025; 85610; 85730; 87086; 99283